=== PATIENT | male | born 1980 | race Caucasian/White ===

== ENCOUNTER 2021-07-12 17:31 | Emergency (ER) | payer OTHER ==
[~2021-07-12] VITALS: Ht 190 cm; Wt 158.7 kg
[2021-07-12 17:49] VITALS: BP 158/106
--- NOTE | 2021-07-12 18:13 | ED Lower Extremity ---
General Chief Complaint: Lower Extremity Stated Complaint: SORE ON FOOT R Nursing Triage Note: PT PRESENTS TO ED VIA POV FROM HOME WITH COMPLAINTS OF HARD AREA ON BOTTOM OF R FOOT THAT OPENED UP AND STARTED DRAINING X 1 WEEK. Source: patient Exam Limitations: no limitations History of Present Illness Date Seen by Provider: Jul 12, 2021 Time Seen by Provider: 17:57 Initial Comments 41-year-old male with past medical history of diabetes and hypertension coming in due to a wound on his right foot. He noticed the wound several weeks ago as a hard callus on the plantar surface of his right foot. Had some pain with walking that was minimal, throbbing, better with rest. It opened up about a week ago, and yesterday he noticed some clear drainage and redness with swelling around the wound. He said about a year ago this time he had the right second toe removed due to a bone infection. [place] is from [place], [place], and just moved here roughly 4 months ago so does not have a primary care doctor as of yet. He only takes Metformin and lisinopril daily, which he still has a supply of for now. He says he is unsure what his blood sugar is normally as he has not taken it in months. Denies any fever, chest pain, shortness of breath, abdominal pain, nausea, vomiting, diarrhea, weakness, numbness, or any other concerns. Allergies and Home Medications Allergies Coded Allergies: amoxicillin (Verified Allergy, Unknown, 07/12/21) Patient Home Medication List Home Medication List Reviewed: Yes Review of Systems Constitutional: No chills, No fever EENTM: No blurred vision Respiratory: No cough Cardiovascular: No chest pain Gastrointestinal: No abdominal pain Genitourinary: no symptoms reported Musculoskeletal: other (Pain in the plantar aspect of his right foot with walking) Skin: other (Wound to the plantar aspect of his right foot is a blister) Psychiatric/Neurological: No Symptoms Reported All Other Systems Reviewed Negative Unless Noted: Yes Past Wrslpfm-Bjcnav-Dxslht Hx Patient Social History Tobacco Use?: No Substance use?: No Alcohol Use?: Yes Alcohol Frequency: Rarely Pt feels they are or have been: No Past Medical History Surgery/Hospitalization HX: pmh: dm2, htn Surgeries: Yes (Right second toe removal from osteomyelitis) Physical Exam Vital Signs Vital Signs - First Documented 07/12/21 17:49 Temp 36.1 Pulse 131 Resp 18 B/P (MAP) 158/106 (123) Pulse Ox 96 Capillary Refill : Less Than 3 Seconds Height, Weight, BMI Height: '" Weight: lbs. oz. kg; 43.00 BMI Method: General Appearance: WD/WN, no apparent distress HEENT: PERRL/EOMI, normal ENT inspection, pharynx normal Neck: non-tender, full range of motion, supple, normal inspection Cardiovascular: no edema, no murmur, tachycardia Respiratory: chest non-tender, lungs clear, normal breath sounds, no respiratory distress, no accessory muscle use Gastrointestinal: normal bowel sounds, non tender; No distended, No guarding, No rebound Back: normal inspection Hips: bilateral hip non-tender, bilateral hip normal inspection, bilateral hip normal range of motion, bilateral hip no evidence of injury Legs: bilateral leg non-tender, bilateral leg normal inspection, bilateral leg normal range of motion, bilateral leg no evidence of injury Knees: bilateral knee non-tender, bilateral knee normal inspection, bilateral knee normal range of motion, bilateral knee no evidence of injury Ankles: bilateral ankle non-tender, bilateral ankle normal inspection, bilateral ankle normal range of motion, bilateral ankle no evidence of injury Feet: left foot non-tender, left foot normal inspection; bilateral foot normal range of motion; left foot no evidence of injury; right foot other (Blister that is open to the right plantar aspect of his foot with an unstageable ulcer, some redness and swelling surrounding it, second digit on the right surgically removed) Neurologic/Tendon: normal sensation, normal motor functions Neurologic/Psychiatric: no motor/sensory deficits, alert, normal mood/affect Skin: normal color, warm/dry Lymphatic: no adenopathy Progress/Results/Core Measures Results/Orders Lab Results Laboratory Tests Test 07/12/21 18:30 Range/Units White Blood Count 22.0 H 4.3-11.0 10^3/uL Red Blood Count 5.08 4.30-5.52 10^6/uL Hemoglobin 15.3 13.3-17.7 g/dL Hematocrit 45 40-54 % Mean Corpuscular Volume 88 80-99 fL Mean Corpuscular Hemoglobin 30 25-34 pg Mean Corpuscular Hemoglobin Concent 34 32-36 g/dL Red Cell Distribution Width 13.5 10.0-14.5 % Platelet Count 215 130-400 10^3/uL Mean Platelet Volume 10.4 9.0-12.2 fL Immature Granulocyte % (Auto) 1 % Neutrophils (%) (Auto) 80 H 42-75 % Lymphocytes (%) (Auto) 13 12-44 % Monocytes (%) (Auto) 7 0-12 % Eosinophils (%) (Auto) 0 0-10 % Basophils (%) (Auto) 0 0-10 % Neutrophils # (Auto) 17.5 H 1.8-7.8 10^3/uL Lymphocytes # (Auto) 2.9 1.0-4.0 10^3/uL Monocytes # (Auto) 1.5 H 0.0-1.0 10^3/uL Eosinophils # (Auto) 0.0 0.0-0.3 10^3/uL Basophils # (Auto) 0.1 0.0-0.1 10^3/uL Immature Granulocyte # (Auto) 0.1 0.0-0.1 10^3/uL Neutrophils % (Manual) 79 % Lymphocytes % (Manual) 7 % Monocytes % (Manual) 8 % Reactive Lymphocytes 6 % Blood Morphology Comment NORMAL Erythrocyte Sedimentation Rate 22 H 0-15 MM/HR Prothrombin Time 13.7 12.2-14.7 SEC INR Comment 1.0 0.8-1.4 Activated Partial Thromboplast Time 31 24-35 SEC Sodium Level 132 L 135-145 MMOL/L Potassium Level 4.2 3.6-5.0 MMOL/L Chloride Level 98 98-107 MMOL/L Carbon Dioxide Level 21 21-32 MMOL/L Anion Gap 13 5-14 MMOL/L Blood Urea Nitrogen 17 7-18 MG/DL Creatinine 0.94 0.60-1.30 MG/DL Estimat Glomerular Filtration Rate 105 BUN/Creatinine Ratio 18 Glucose Level 320 H 70-105 MG/DL Lactic Acid Level 1.82 0.50-2.00 MMOL/L Calcium Level 10.2 H 8.5-10.1 MG/DL Corrected Calcium 10.0 8.5-10.1 MG/DL Total Bilirubin 1.8 H 0.1-1.0 MG/DL Aspartate Amino Transf (AST/SGOT) 14 5-34 U/L Alanine Aminotransferase (ALT/SGPT) 20 0-55 U/L Alkaline Phosphatase 73 40-136 U/L C-Reactive Protein High Sensitivity 7.19 H 0.00-0.50 MG/DL Total Protein 7.8 6.4-8.2 GM/DL Albumin 4.2 3.2-4.5 GM/DL My Orders Orders - ANMOL MORGAN MD Cbc With Automated Diff (07/12/21 18:05) Comprehensive Metabolic Panel (07/12/21 18:05) Blood Culture (07/12/21 18:05) Protime With Inr (07/12/21 18:05) Partial Thromboplastin Time (07/12/21 18:05) Ed Iv/Invasive Line Start (07/12/21 18:05) Vital Signs Adult Sepsis Patie Q15M (07/12/21 18:05) O2 (07/12/21 18:05) Remove Rings In Anticipation O (07/12/21 18:05) Lactic Acid Analyzer (07/12/21 18:05) Ns Iv 1000 Ml (Sodium Chloride 0.9%) (07/12/21 18:15) Hs C Reactive Protein (07/12/21 18:05) Erythrocyte Sedimentation Rate (07/12/21 18:05) Acetaminophen Tablet (Tylenol Tablet) (07/12/21 18:15) Foot, Right, 3 View (07/12/21 18:05) Cefepime Injection (Maxipime Injection) (07/12/21 18:15) Metronidazole 500mg/100ml Ivpb (Flagyl 5 (07/12/21 18:15) Vancomycin Injection (Vancomycin Injecti (07/12/21 18:15) Manual Differential (07/12/21 18:30) Medications Given in ED Current Medications Medications Dose Ordered Sig/Anna Route Start Time Stop Time Status Last Admin Dose Admin Acetaminophen 1,000 mg ONCE ONCE PO 07/12/21 18:15 07/12/21 18:16 DC 07/12/21 18:24 1,000 MG Cefepime HCl 2000 mg/Sodium Chloride 50 ml @ 100 mls/hr ONCE ONCE IV 07/12/21 18:15 07/12/21 18:44 DC 07/12/21 18:57 100 MLS/HR Metronidazole 100 ml @ 100 mls/hr ONCE ONCE IV 07/12/21 18:15 07/12/21 19:14 DC 07/12/21 19:10 100 MLS/HR Vital Signs/I&O 3/21/22 17:49 Temp 36.1 Pulse 131 Resp 18 B/P (MAP) 158/106 (123) Pulse Ox 96 Blood Pressure Mean: 123 Progress Progress Note : Progress Note 41-year-old male with above history coming in due to a wound on his right foot that he is concerned is infected. ABCs were intact and vitals were stable on presentation. Physical exam with an unstageable blister to his right plantar aspect of his foot. His heart rate was elevated around 120 on presentation. He says this is not uncommon for him. Due to this however, an IV was placed and he was given a bolus of IV fluids. Basic labs including inflammatory markers ordered. X-ray of the foot also ordered to assess for signs of osteomyelitis. X-ray with no obvious bone infection. White blood cell count elevated, ESR just slightly elevated, CRP just slightly elevated. His heart rate has come down with fluids, he is afebrile, and actually hypertensive so not obviously septic. Is well-appearing and able to tolerate p.o. so we will send him with p.o. antibiotics and have him follow-up with the wound clinic this week. I believe he is stable for discharge with outpatient follow-up. He was sent home with strict return precautions Diagnostic Imaging Diagonstic Imaging: Xray (foot) Comments NAME: [facility] REC#: [id number] PT STATUS: REG ER : 1980 PHYSICIAN: ANMOL MORGAN MD ADMIT DATE: 07/12/21/ER Signed Date of Exam:07/12/21 FOOT, RIGHT, 3 VIEW EXAMINATION: Right foot 3 views HISTORY: Foot wound COMPARISON: None available. FINDINGS: There has been transmetatarsal phalangeal amputation of the 2nd toe. No acute fracture is seen. There is a heel spur. Soft tissue irregularity is seen on the plantar surface of the foot. No osseous erosions are seen. IMPRESSION: 1. No osseous erosions are seen to indicate osteomyelitis. Dictated by: Dictated on workstation # [id number] Dict: 07/12/21 1856 Trans: 07/12/21 1921 [id number] Interpreted by: MOI MONTERO MD Electronically signed by: MOI MONTERO MD 07/12/211920 Departure Impression Primary Impression: Cellulitis Qualified Codes: L03.115 - Cellulitis of right lower limb Additional Impressions: Wound of foot Diabetes Qualified Codes: E11.69 - Type 2 diabetes mellitus with other specified complication Disposition: HOME, SELF-CARE Condition: Stable Departure-Patient Inst. Decision time for Depature: 19:43 Referrals: VILMA DUMONT MD Patient Instructions: Wound Infection Add. Discharge Instructions: Your wound does look infected, but has not obviously in the bone. He will take 2 different antibiotics for the next 10 days. We will have he follow-up with our wound clinic here in the next week. If you develop fever, redness start spreading up your leg, or have any other concerns then please come back to the ER I want you to call the wound clinic at the number above. Dr. Vilma Dumont is the doctor you will need to see. Scripts Doxycycline Hyclate (Doxycycline Hyclate) 100 Mg Tablet 100 MG PO BID for 10 Days, #20 TAB 0 Refills Prov: ANMOL MORGAN MD 07/12/21 Cephalexin (Cephalexin) 500 Mg Tablet 500 MG PO QID for 10 Days, #40 TAB Prov: ANMOL MORGAN MD 07/12/21 ANMOL MORGAN MD Jul 12, 2021 18:13
[2021-07-12] MEDS ORDERED: CEFEPIME INJECTION 2,000 MG in NS (IVPB) 50 ML IV ONE (18:15)
[2021-07-12] MEDS ORDERED: ACETAMINOPHEN 500 MG TAB (TYLENOL) PO ONE (18:15)
[2021-07-12] MEDS ORDERED: VANCOMYCIN INJECTION 2,000 MG in NS (IVPB) 250 ML IV ONE (18:15)
[2021-07-12] MEDS ORDERED: metroNIDAZOLE 500MG/100ML IVPB 100 ML IV ONE (18:15)
[2021-07-12] MEDS: NS IV 1000 ML 1,000 ML IV SCH ×2 (18:24→19:51)
[2021-07-12 18:41] LABS: BASOPHILS # (AUTO) 0.1 10^3/uL (0.0-0.1); BASOPHILS % (AUTO) 0 % (0-10); EOSINOPHILS % (AUTO) 0 % (0-10); HEMATOCRIT 45 % (40-54); HEMOGLOBIN 15.3 g/dL (13.3-17.7); LYMPHOCYTES # (AUTO) 2.9 10^3/uL (1.0-4.0); LYMPHOCYTES % (AUTO) 13 % (12-44); MEAN CORPUSCULAR HEMOGLOBIN 30 pg (25-34); MEAN CORPUSCULAR HGB CONC 34 g/dL (32-36); MEAN CORPUSCULAR VOLUME 88 fL (80-99); MEAN PLATELET VOLUME 10.4 fL (9.0-12.2); MONOCYTES # (AUTO) 1.5 10^3/uL (0.0-1.0); MONOCYTES % (AUTO) 7 % (0-12); NEUTROPHILS # (AUTO) 17.5 10^3/uL (1.8-7.8); NEUTROPHILS % (AUTO) 80 % (42-75); PLATELET COUNT 215 10^3/uL (130-400)
[2021-07-12 18:59] LABS: ALBUMIN 4.2 GM/DL (3.2-4.5); PROTHROMBIN TIME PATIENT 13.7 SEC (12.2-14.7)
[2021-07-12 19:00] LABS: POTASSIUM 4.2 MMOL/L (3.6-5.0)
[2021-07-12 19:01] LABS: CALCIUM 10.2 MG/DL (8.5-10.1)
--- NOTE | 2021-07-12 19:01 | Diagnostic Imaging Report ---
EXAMINATION: Right foot 3 views HISTORY: Foot wound COMPARISON: None available. FINDINGS: There has been transmetatarsal phalangeal amputation of the 2nd toe. No acute fracture is seen. There is a heel spur. Soft tissue irregularity is seen on the plantar surface of the foot. No osseous erosions are seen. IMPRESSION: 1. No osseous erosions are seen to indicate osteomyelitis. Dictated by: Dictated on workstation # [id number]
[2021-07-12 19:02] LABS: TOTAL PROTEIN 7.8 GM/DL (6.4-8.2)
[2021-07-12 19:04] LABS: BILIRUBIN,TOTAL 1.8 MG/DL (0.1-1.0)
[2021-07-12 19:06] LABS: CREATININE SERUM 0.94 MG/DL (0.60-1.30)
[2021-07-12 19:09] LABS: ERYTHROCYTE SEDIMENTATION RATE 22 MM/HR (0-15); LYMPHOCYTES % (MANUAL) 7 %; MONOCYTES % (MANUAL) 8 %; NEUTROPHILS % (MANUAL) 79 %; RBC MORPH NORMAL; REACTIVE LYMPHOCYTES 6 %
[2021-07-12] MEDS ORDERED: DOXY100T2 PO (19:46)
[2021-07-12] MEDS ORDERED: CEPH500T PO (19:46)
== END 2021-07-12 20:53 | disposition home or self-care (01) ==
LOC: EDUNIT# 17:31 → ER 17:35
DX: S91.301A Unspecified open wound, right foot, initial encounter (principal); L03.115 Cellulitis of right lower limb; E11.69 Type 2 diabetes mellitus with other specified complication; I10 Essential (primary) hypertension; Z79.84 Long term (current) use of oral hypoglycemic drugs; X58.XXXA Exposure to other specified factors, initial encounter
CPT/HCPCS: 36415; 73630; 80053; 83036; 83605; 85007; 85027; 85610; 85652; 85730; 86141; 87040; 96374; 96375

== ENCOUNTER → 2021-07-14 | Outpatient (CLI) | payer OTHER ==
[~2021-07-14] MED LIST: CEPH500T PO; DOXY100T2 PO
== END ==
LOC: WOUNDCARE 12:00
PROVIDERS: ATTEND Family Medicine
DX: E11.621 Type 2 diabetes mellitus with foot ulcer (principal); L97.512 Non-pressure chronic ulcer of other part of right foot with fat layer exposed; E11.43 Type 2 diabetes mellitus with diabetic autonomic (poly)neuropathy; E11.65 Type 2 diabetes mellitus with hyperglycemia; L03.115 Cellulitis of right lower limb
CPT/HCPCS: 11042; 87070; 87205; A6197; G0463; L4386; 87077

== ENCOUNTER → 2021-07-21 | Outpatient (CLI) | payer OTHER ==
[~2021-07-21] MED LIST changes: +HOLD METFORMIN - RECEIVED CONTRAST 20 ML VIAL IV SCH; +IOHEXOL 350 MG/ML 100 ML (OMNIPAQUE 350) VIAL IV ONE; +NS 100 ML (IVPB) BAG IV ONE
--- NOTE | 2021-07-21 17:51 | Diagnostic Imaging Report ---
PROCEDURE: CT right lower extremity with contrast. TECHNIQUE: Multiple contiguous axial CT images of the right extremity were obtained after intravenous administration of iodinated contrast. Auto Exposure Controls were utilized during the CT exam to meet ALARA standards for radiation dose reduction. 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 COMPARISON: Radiographs from 07/12/2021. FINDINGS: There is prior amputation of the second toe at the metatarsal head. No acute fracture is seen in the right foot. Alignment is normal. No cortical erosion or periosteal reaction is seen to indicate osteomyelitis by CT. There is a small plantar calcaneal enthesophyte. There is lateral angulation of the third and fourth toes with hyperextension at the MTP joints. There is a soft tissue ulceration plantar to the third metatarsal head with skin thickening. No rim-enhancing fluid collection is appreciated. No soft tissue gas is seen. No muscular atrophy is seen. IMPRESSION: 1. Soft tissue ulceration plantar to the third metatarsal head. No rim-enhancing soft tissue fluid collection or CT findings of osteomyelitis are seen. Dictated by: Dictated on workstation # [id number]
== END ==
LOC: RAD 07-20 13:15
PROVIDERS: ATTEND Family Medicine
DX: E11.621 Type 2 diabetes mellitus with foot ulcer (principal); L97.512 Non-pressure chronic ulcer of other part of right foot with fat layer exposed; E11.43 Type 2 diabetes mellitus with diabetic autonomic (poly)neuropathy; E11.65 Type 2 diabetes mellitus with hyperglycemia; L03.115 Cellulitis of right lower limb
CPT/HCPCS: 73701

== ENCOUNTER → 2021-07-22 | Outpatient (CLI) | payer OTHER ==
[~2021-07-22] MED LIST changes: -HOLD METFORMIN - RECEIVED CONTRAST 20 ML VIAL IV SCH; -IOHEXOL 350 MG/ML 100 ML (OMNIPAQUE 350) VIAL IV ONE; -NS 100 ML (IVPB) BAG IV ONE
== END ==
LOC: WOUNDCARE 09:30
PROVIDERS: ATTEND Family Medicine
DX: L97.512 Non-pressure chronic ulcer of other part of right foot with fat layer exposed (principal); E11.621 Type 2 diabetes mellitus with foot ulcer; E11.43 Type 2 diabetes mellitus with diabetic autonomic (poly)neuropathy; E11.65 Type 2 diabetes mellitus with hyperglycemia; L03.115 Cellulitis of right lower limb; E11.52 Type 2 diabetes mellitus with diabetic peripheral angiopathy with gangrene
CPT/HCPCS: 11042; G0463

== ENCOUNTER → 2021-07-27 | Outpatient (CLI) | payer OTHER | LOC: WOUNDCARE 14:10 | PROVIDERS: ATTEND Family Medicine | DX: L97.512 Non-pressure chronic ulcer of other part of right foot with fat layer exposed (principal); E11.621 Type 2 diabetes mellitus with foot ulcer; E11.43 Type 2 diabetes mellitus with diabetic autonomic (poly)neuropathy; E11.65 Type 2 diabetes mellitus with hyperglycemia; E11.52 Type 2 diabetes mellitus with diabetic peripheral angiopathy with gangrene | CPT/HCPCS: 11042; G0463 ==

== ENCOUNTER → 2021-08-03 | Outpatient (CLI) | payer OTHER | LOC: WOUNDCARE 14:21 | PROVIDERS: ATTEND Family Medicine | DX: L97.512 Non-pressure chronic ulcer of other part of right foot with fat layer exposed (principal); E11.621 Type 2 diabetes mellitus with foot ulcer; E11.43 Type 2 diabetes mellitus with diabetic autonomic (poly)neuropathy; E11.65 Type 2 diabetes mellitus with hyperglycemia; E11.52 Type 2 diabetes mellitus with diabetic peripheral angiopathy with gangrene | CPT/HCPCS: 11042; G0463 ==

== ENCOUNTER → 2021-08-10 | Outpatient (CLI) | payer OTHER | LOC: WOUNDCARE 13:48 | PROVIDERS: ATTEND Family Medicine | DX: E11.621 Type 2 diabetes mellitus with foot ulcer (principal); L97.512 Non-pressure chronic ulcer of other part of right foot with fat layer exposed; E11.43 Type 2 diabetes mellitus with diabetic autonomic (poly)neuropathy; E11.65 Type 2 diabetes mellitus with hyperglycemia; E11.52 Type 2 diabetes mellitus with diabetic peripheral angiopathy with gangrene | CPT/HCPCS: 11042; G0463 ==

== ENCOUNTER → 2021-08-17 | Outpatient (CLI) | payer OTHER | LOC: WOUNDCARE 14:08 | PROVIDERS: ATTEND Family Medicine | DX: E11.621 Type 2 diabetes mellitus with foot ulcer (principal); L97.512 Non-pressure chronic ulcer of other part of right foot with fat layer exposed; E11.65 Type 2 diabetes mellitus with hyperglycemia; E11.43 Type 2 diabetes mellitus with diabetic autonomic (poly)neuropathy | CPT/HCPCS: 11042; G0463 ==

== ENCOUNTER → 2021-08-24 | Outpatient (CLI) | payer OTHER | LOC: WOUNDCARE 14:28 | PROVIDERS: ATTEND Family Medicine | DX: E11.621 Type 2 diabetes mellitus with foot ulcer (principal); L97.512 Non-pressure chronic ulcer of other part of right foot with fat layer exposed; E11.43 Type 2 diabetes mellitus with diabetic autonomic (poly)neuropathy; E11.52 Type 2 diabetes mellitus with diabetic peripheral angiopathy with gangrene; E11.65 Type 2 diabetes mellitus with hyperglycemia; E66.01 Morbid (severe) obesity due to excess calories; Z68.41 Body mass index [BMI] 40.0-44.9, adult | CPT/HCPCS: 11042; G0463 ==

== ENCOUNTER → 2021-08-31 | Outpatient (CLI) | payer OTHER | LOC: WOUNDCARE 14:05 | PROVIDERS: ATTEND Family Medicine | DX: E11.621 Type 2 diabetes mellitus with foot ulcer (principal); L97.512 Non-pressure chronic ulcer of other part of right foot with fat layer exposed; E11.65 Type 2 diabetes mellitus with hyperglycemia; E66.01 Morbid (severe) obesity due to excess calories; I95.9 Hypotension, unspecified; E11.43 Type 2 diabetes mellitus with diabetic autonomic (poly)neuropathy; E11.52 Type 2 diabetes mellitus with diabetic peripheral angiopathy with gangrene; I96 Gangrene, not elsewhere classified | CPT/HCPCS: 11042; A6207; G0463 ==

== ENCOUNTER → 2021-09-07 | Outpatient (CLI) | payer OTHER | LOC: WOUNDCARE 14:01 | PROVIDERS: ATTEND Family Medicine | DX: E11.621 Type 2 diabetes mellitus with foot ulcer (principal); L97.512 Non-pressure chronic ulcer of other part of right foot with fat layer exposed; E11.65 Type 2 diabetes mellitus with hyperglycemia; E66.01 Morbid (severe) obesity due to excess calories; I95.9 Hypotension, unspecified; E11.43 Type 2 diabetes mellitus with diabetic autonomic (poly)neuropathy; E11.52 Type 2 diabetes mellitus with diabetic peripheral angiopathy with gangrene; I96 Gangrene, not elsewhere classified | CPT/HCPCS: 11042; G0463 ==

== ENCOUNTER → 2021-09-14 | Outpatient (CLI) | payer OTHER | LOC: WOUNDCARE 08:28 | PROVIDERS: ATTEND Family Medicine | DX: E11.621 Type 2 diabetes mellitus with foot ulcer (principal); L97.512 Non-pressure chronic ulcer of other part of right foot with fat layer exposed; E11.43 Type 2 diabetes mellitus with diabetic autonomic (poly)neuropathy; E11.65 Type 2 diabetes mellitus with hyperglycemia; E66.01 Morbid (severe) obesity due to excess calories; M20.41 Other hammer toe(s) (acquired), right foot | CPT/HCPCS: 11042; G0463 ==

== ENCOUNTER → 2021-09-21 | Outpatient (CLI) | payer OTHER | LOC: WOUNDCARE 08:13 | PROVIDERS: ATTEND Family Medicine | DX: E11.621 Type 2 diabetes mellitus with foot ulcer (principal); E11.43 Type 2 diabetes mellitus with diabetic autonomic (poly)neuropathy; E11.65 Type 2 diabetes mellitus with hyperglycemia; L97.512 Non-pressure chronic ulcer of other part of right foot with fat layer exposed; E66.01 Morbid (severe) obesity due to excess calories; M20.41 Other hammer toe(s) (acquired), right foot; Z68.41 Body mass index [BMI] 40.0-44.9, adult | CPT/HCPCS: 11042; G0463 ==

== ENCOUNTER → 2021-09-28 | Outpatient (CLI) | payer OTHER | LOC: WOUNDCARE 08:21 | PROVIDERS: ATTEND Family Medicine | DX: L97.512 Non-pressure chronic ulcer of other part of right foot with fat layer exposed (principal); E11.621 Type 2 diabetes mellitus with foot ulcer; E11.43 Type 2 diabetes mellitus with diabetic autonomic (poly)neuropathy; E11.65 Type 2 diabetes mellitus with hyperglycemia; M20.41 Other hammer toe(s) (acquired), right foot; E11.52 Type 2 diabetes mellitus with diabetic peripheral angiopathy with gangrene; E66.01 Morbid (severe) obesity due to excess calories; I96 Gangrene, not elsewhere classified; Z68.41 Body mass index [BMI] 40.0-44.9, adult | CPT/HCPCS: 11042; G0463 ==

== ENCOUNTER → 2021-10-05 | Outpatient (CLI) | payer OTHER | LOC: WOUNDCARE 09:04 | PROVIDERS: ATTEND Family Medicine | DX: L97.512 Non-pressure chronic ulcer of other part of right foot with fat layer exposed (principal); E11.621 Type 2 diabetes mellitus with foot ulcer; E11.43 Type 2 diabetes mellitus with diabetic autonomic (poly)neuropathy; E11.65 Type 2 diabetes mellitus with hyperglycemia; E66.01 Morbid (severe) obesity due to excess calories; M20.41 Other hammer toe(s) (acquired), right foot | CPT/HCPCS: 11042; G0463 ==

== ENCOUNTER → 2021-10-12 | Outpatient (CLI) | payer OTHER | LOC: WOUNDCARE 08:17 | PROVIDERS: ATTEND Family Medicine | DX: L97.512 Non-pressure chronic ulcer of other part of right foot with fat layer exposed (principal); E11.621 Type 2 diabetes mellitus with foot ulcer; E11.43 Type 2 diabetes mellitus with diabetic autonomic (poly)neuropathy; E11.65 Type 2 diabetes mellitus with hyperglycemia; E66.01 Morbid (severe) obesity due to excess calories; M20.41 Other hammer toe(s) (acquired), right foot | CPT/HCPCS: 11042; G0463 ==

== ENCOUNTER → 2021-10-19 | Outpatient (CLI) | payer OTHER | LOC: WOUNDCARE 08:14 | PROVIDERS: ATTEND Family Medicine | DX: L97.512 Non-pressure chronic ulcer of other part of right foot with fat layer exposed (principal); E11.621 Type 2 diabetes mellitus with foot ulcer; E11.43 Type 2 diabetes mellitus with diabetic autonomic (poly)neuropathy; E11.65 Type 2 diabetes mellitus with hyperglycemia; E66.01 Morbid (severe) obesity due to excess calories; M20.41 Other hammer toe(s) (acquired), right foot | CPT/HCPCS: 11042; G0463 ==

== ENCOUNTER → 2021-10-26 | Outpatient (CLI) | payer OTHER | LOC: WOUNDCARE 09:56 | PROVIDERS: ATTEND Family Medicine | DX: E11.621 Type 2 diabetes mellitus with foot ulcer (principal); L97.512 Non-pressure chronic ulcer of other part of right foot with fat layer exposed; E11.43 Type 2 diabetes mellitus with diabetic autonomic (poly)neuropathy; E11.65 Type 2 diabetes mellitus with hyperglycemia; M20.41 Other hammer toe(s) (acquired), right foot; E66.01 Morbid (severe) obesity due to excess calories; Z68.42 Body mass index [BMI] 45.0-49.9, adult | CPT/HCPCS: 17250; G0463 ==

== ENCOUNTER → 2021-11-09 | Outpatient (CLI) | payer OTHER | LOC: WOUNDCARE 08:10 | PROVIDERS: ATTEND Family Medicine | DX: E11.621 Type 2 diabetes mellitus with foot ulcer (principal); L97.512 Non-pressure chronic ulcer of other part of right foot with fat layer exposed; E11.43 Type 2 diabetes mellitus with diabetic autonomic (poly)neuropathy; E11.65 Type 2 diabetes mellitus with hyperglycemia; E66.01 Morbid (severe) obesity due to excess calories; M20.41 Other hammer toe(s) (acquired), right foot; E11.52 Type 2 diabetes mellitus with diabetic peripheral angiopathy with gangrene; I96 Gangrene, not elsewhere classified; Z68.42 Body mass index [BMI] 45.0-49.9, adult | CPT/HCPCS: 11042; G0463 ==

== ENCOUNTER → 2021-11-09 | Outpatient (CLI) | payer OTHER ==
[2021-11-09 09:44] LABS: BASOPHILS # (AUTO) 0.1 10^3/uL (0.0-0.1); BASOPHILS % (AUTO) 1 % (0-10); EOSINOPHILS # (AUTO) 0.1 10^3/uL (0.0-0.3); EOSINOPHILS % (AUTO) 2 % (0-10); HEMATOCRIT 46 % (40-54); HEMOGLOBIN 15.5 g/dL (13.3-17.7); LYMPHOCYTES # (AUTO) 2.8 10^3/uL (1.0-4.0); LYMPHOCYTES % (AUTO) 32 % (12-44); MEAN CORPUSCULAR HEMOGLOBIN 30 pg (25-34); MEAN CORPUSCULAR HGB CONC 34 g/dL (32-36); MEAN CORPUSCULAR VOLUME 88 fL (80-99); MEAN PLATELET VOLUME 10.2 fL (9.0-12.2); MONOCYTES # (AUTO) 0.7 10^3/uL (0.0-1.0); MONOCYTES % (AUTO) 8 % (0-12); NEUTROPHILS # (AUTO) 5.1 10^3/uL (1.8-7.8); NEUTROPHILS % (AUTO) 58 % (42-75); PLATELET COUNT 207 10^3/uL (130-400); WHITE BLOOD COUNT 8.7 10^3/uL (4.3-11.0)
[2021-11-09 10:05] LABS: ALBUMIN 4.1 GM/DL (3.2-4.5); CALCIUM 9.8 MG/DL (8.5-10.1); CREATININE SERUM 0.78 MG/DL (0.60-1.30); POTASSIUM 4.3 MMOL/L (3.6-5.0)
[2021-11-09 10:51] LABS: ERYTHROCYTE SEDIMENTATION RATE 20 MM/HR (0-15)
== END ==
LOC: LAB 09:15
PROVIDERS: ATTEND Family Medicine
DX: L97.512 Non-pressure chronic ulcer of other part of right foot with fat layer exposed (principal)
CPT/HCPCS: 36415; 80053; 82306; 82607; 85025; 85652; 86141

== ENCOUNTER → 2021-11-16 | Outpatient (CLI) | payer OTHER | LOC: WOUNDCARE 08:40 | PROVIDERS: ATTEND Family Medicine | DX: E11.621 Type 2 diabetes mellitus with foot ulcer (principal); L97.521 Non-pressure chronic ulcer of other part of left foot limited to breakdown of skin; E11.42 Type 2 diabetes mellitus with diabetic polyneuropathy; E11.65 Type 2 diabetes mellitus with hyperglycemia; E66.01 Morbid (severe) obesity due to excess calories; I10 Essential (primary) hypertension; E55.9 Vitamin D deficiency, unspecified; M20.41 Other hammer toe(s) (acquired), right foot | CPT/HCPCS: 11042; G0463 ==

== ENCOUNTER → 2021-11-24 | Outpatient (CLI) | payer OTHER | LOC: WOUNDCARE 10:21 | PROVIDERS: ATTEND Family Medicine | DX: E11.621 Type 2 diabetes mellitus with foot ulcer (principal); E11.52 Type 2 diabetes mellitus with diabetic peripheral angiopathy with gangrene; I96 Gangrene, not elsewhere classified; E11.40 Type 2 diabetes mellitus with diabetic neuropathy, unspecified; E11.65 Type 2 diabetes mellitus with hyperglycemia; L97.512 Non-pressure chronic ulcer of other part of right foot with fat layer exposed; E66.01 Morbid (severe) obesity due to excess calories; I10 Essential (primary) hypertension; E55.9 Vitamin D deficiency, unspecified; M20.41 Other hammer toe(s) (acquired), right foot; Z68.42 Body mass index [BMI] 45.0-49.9, adult | CPT/HCPCS: 11042; G0463 ==

== ENCOUNTER → 2021-12-01 | Outpatient (CLI) | payer OTHER | LOC: WOUNDCARE 08:26 | PROVIDERS: ATTEND Family Medicine | DX: L97.512 Non-pressure chronic ulcer of other part of right foot with fat layer exposed (principal); E11.621 Type 2 diabetes mellitus with foot ulcer; E11.43 Type 2 diabetes mellitus with diabetic autonomic (poly)neuropathy; E11.65 Type 2 diabetes mellitus with hyperglycemia; E66.01 Morbid (severe) obesity due to excess calories; M20.41 Other hammer toe(s) (acquired), right foot; E55.9 Vitamin D deficiency, unspecified | CPT/HCPCS: 99213 ==

== ENCOUNTER → 2021-12-08 | Outpatient (CLI) | payer OTHER ==
[2021-12-08 09:17] LABS: BASOPHILS # (AUTO) 0.1 10^3/uL (0.0-0.1); BASOPHILS % (AUTO) 1 % (0-10); EOSINOPHILS # (AUTO) 0.2 10^3/uL (0.0-0.3); EOSINOPHILS % (AUTO) 2 % (0-10); HEMATOCRIT 42 % (40-54); HEMOGLOBIN 14.5 g/dL (13.3-17.7); LYMPHOCYTES # (AUTO) 2.7 10^3/uL (1.0-4.0); LYMPHOCYTES % (AUTO) 33 % (12-44); MEAN CORPUSCULAR HEMOGLOBIN 30 pg (25-34); MEAN CORPUSCULAR HGB CONC 35 g/dL (32-36); MEAN CORPUSCULAR VOLUME 85 fL (80-99); MEAN PLATELET VOLUME 10.3 fL (9.0-12.2); MONOCYTES # (AUTO) 0.6 10^3/uL (0.0-1.0); MONOCYTES % (AUTO) 8 % (0-12); NEUTROPHILS # (AUTO) 4.6 10^3/uL (1.8-7.8); NEUTROPHILS % (AUTO) 56 % (42-75); PLATELET COUNT 186 10^3/uL (130-400); WHITE BLOOD COUNT 8.3 10^3/uL (4.3-11.0)
[2021-12-08 09:28] LABS: ALBUMIN 3.8 GM/DL (3.2-4.5); POTASSIUM 4.1 MMOL/L (3.6-5.0)
[2021-12-08 09:29] LABS: CALCIUM 9.3 MG/DL (8.5-10.1)
[2021-12-08 09:31] LABS: TOTAL PROTEIN 7.9 GM/DL (6.4-8.2)
[2021-12-08 09:32] LABS: BILIRUBIN,TOTAL 1.6 MG/DL (0.1-1.0)
[2021-12-08 09:34] LABS: CREATININE SERUM 0.77 MG/DL (0.60-1.30)
[2021-12-08 09:40] LABS: ERYTHROCYTE SEDIMENTATION RATE 43 MM/HR (0-15)
== END ==
LOC: WOUNDCARE 08:27
PROVIDERS: ATTEND Family Medicine
DX: L97.512 Non-pressure chronic ulcer of other part of right foot with fat layer exposed (principal); E11.621 Type 2 diabetes mellitus with foot ulcer; E11.43 Type 2 diabetes mellitus with diabetic autonomic (poly)neuropathy; E11.65 Type 2 diabetes mellitus with hyperglycemia; E66.01 Morbid (severe) obesity due to excess calories; M20.41 Other hammer toe(s) (acquired), right foot; I10 Essential (primary) hypertension; E55.9 Vitamin D deficiency, unspecified; L03.115 Cellulitis of right lower limb; Z91.11 Patient's noncompliance with dietary regimen; Z91.19 Patient's noncompliance with other medical treatment and regimen
CPT/HCPCS: 11042; 80053; 85025; 85652; 86141; 87070; 87205; G0463; 36415

== ENCOUNTER → 2021-12-15 | Outpatient (CLI) | payer OTHER | LOC: WOUNDCARE 08:25 | PROVIDERS: ATTEND Family Medicine | DX: L97.512 Non-pressure chronic ulcer of other part of right foot with fat layer exposed (principal); E11.621 Type 2 diabetes mellitus with foot ulcer; E11.65 Type 2 diabetes mellitus with hyperglycemia; E66.01 Morbid (severe) obesity due to excess calories; I10 Essential (primary) hypertension; E55.9 Vitamin D deficiency, unspecified; E11.43 Type 2 diabetes mellitus with diabetic autonomic (poly)neuropathy; M20.41 Other hammer toe(s) (acquired), right foot; Z91.11 Patient's noncompliance with dietary regimen; Z91.19 Patient's noncompliance with other medical treatment and regimen | CPT/HCPCS: 99212 ==

== ENCOUNTER → 2022-06-07 | Outpatient (CLI) | payer OTHER ==
[2022-06-07 09:44] LABS: BASOPHILS # (AUTO) 0.1 10^3/uL (0.0-0.1); BASOPHILS % (AUTO) 1 % (0-10); EOSINOPHILS # (AUTO) 0.2 10^3/uL (0.0-0.3); EOSINOPHILS % (AUTO) 2 % (0-10); HEMATOCRIT 44 % (40-54); HEMOGLOBIN 14.8 g/dL (13.3-17.7); LYMPHOCYTES # (AUTO) 2.8 10^3/uL (1.0-4.0); LYMPHOCYTES % (AUTO) 30 % (12-44); MEAN CORPUSCULAR HEMOGLOBIN 30 pg (25-34); MEAN CORPUSCULAR HGB CONC 34 g/dL (32-36); MEAN CORPUSCULAR VOLUME 89 fL (80-99); MEAN PLATELET VOLUME 10.1 fL (9.0-12.2); MONOCYTES # (AUTO) 0.6 10^3/uL (0.0-1.0); MONOCYTES % (AUTO) 6 % (0-12); NEUTROPHILS # (AUTO) 5.7 10^3/uL (1.8-7.8); NEUTROPHILS % (AUTO) 61 % (42-75); PLATELET COUNT 219 10^3/uL (130-400); WHITE BLOOD COUNT 9.3 10^3/uL (4.3-11.0)
[2022-06-07 09:53] LABS: ALBUMIN 4.2 GM/DL (3.2-4.5); POTASSIUM 4.4 MMOL/L (3.6-5.0)
[2022-06-07 09:54] LABS: CALCIUM 9.4 MG/DL (8.5-10.1)
[2022-06-07 09:55] LABS: TOTAL PROTEIN 8.1 GM/DL (6.4-8.2)
[2022-06-07 09:57] LABS: BILIRUBIN,TOTAL 1.2 MG/DL (0.1-1.0)
[2022-06-07 09:59] LABS: CREATININE SERUM 0.82 MG/DL (0.60-1.30)
[2022-06-07 10:16] LABS: ERYTHROCYTE SEDIMENTATION RATE 22 MM/HR (0-15)
== END ==
LOC: WOUNDCARE 08:03
PROVIDERS: ATTEND Family Medicine
DX: L97.512 Non-pressure chronic ulcer of other part of right foot with fat layer exposed (principal); E11.621 Type 2 diabetes mellitus with foot ulcer; E11.65 Type 2 diabetes mellitus with hyperglycemia; E11.40 Type 2 diabetes mellitus with diabetic neuropathy, unspecified; M14.671 Charcot's joint, right ankle and foot; M20.41 Other hammer toe(s) (acquired), right foot; Z68.41 Body mass index [BMI] 40.0-44.9, adult; E66.01 Morbid (severe) obesity due to excess calories; A49.9 Bacterial infection, unspecified
CPT/HCPCS: 11042; 80053; 85025; 85652; 86141; 87070; 87077; 87205; A6197; G0463; 36415

== ENCOUNTER → 2022-06-09 | Outpatient (CLI) | payer OTHER ==
--- NOTE | 2022-06-09 12:48 | Diagnostic Imaging Report ---
Indication: Claudication. COMPARISON: None FINDINGS: Ankle brachial indices were obtained bilaterally. GERALDO on the right measures 1.27. GERALDO on the left measures 1.22. IMPRESSION: 1. Normal ankle-brachial indices. Dictated by: Dictated on workstation # [id number]
== END ==
LOC: RAD 09:02
PROVIDERS: ATTEND Family Medicine
DX: L97.512 Non-pressure chronic ulcer of other part of right foot with fat layer exposed (principal); E11.621 Type 2 diabetes mellitus with foot ulcer; E11.65 Type 2 diabetes mellitus with hyperglycemia; E11.40 Type 2 diabetes mellitus with diabetic neuropathy, unspecified; M14.671 Charcot's joint, right ankle and foot; M20.41 Other hammer toe(s) (acquired), right foot; E66.01 Morbid (severe) obesity due to excess calories; A49.9 Bacterial infection, unspecified; I73.9 Peripheral vascular disease, unspecified; Z68.41 Body mass index [BMI] 40.0-44.9, adult
CPT/HCPCS: 93923

== ENCOUNTER → 2022-06-13 | Outpatient (CLI) | payer OTHER ==
--- NOTE | 2022-06-13 14:17 | Diagnostic Imaging Report ---
INDICATION: Osteomyelitis, ulcer. COMPARISON: 07/12/2021. TECHNIQUE: Three radiographs of the right foot dated 06/13/2022. FINDINGS: Amputation of the second toe is again noted at the level of the distal second metatarsal. No acute fracture or dislocation. No destructive osseous process. Small plantar and tiny posterior calcaneal enthesophytes. The Lisfranc joint is well aligned. Minimal scattered degenerative changes. No suspicious radiopaque foreign body. IMPRESSION: Stable examination demonstrating amputation of the second digit at the level of the distal second metatarsal without evidence of osseous destruction or acute osseous abnormality. Should there remains high clinical concern for underlying osteomyelitis, then follow-up radiographs in 10-14 days would be recommended. Dictated by: Dictated on workstation # [id number]
== END ==
LOC: WOUNDCARE 08:13
PROVIDERS: ATTEND Family Medicine
DX: E11.621 Type 2 diabetes mellitus with foot ulcer (principal); L97.512 Non-pressure chronic ulcer of other part of right foot with fat layer exposed; E11.40 Type 2 diabetes mellitus with diabetic neuropathy, unspecified; E11.65 Type 2 diabetes mellitus with hyperglycemia; M14.671 Charcot's joint, right ankle and foot; M20.41 Other hammer toe(s) (acquired), right foot; E66.01 Morbid (severe) obesity due to excess calories; A49.9 Bacterial infection, unspecified
CPT/HCPCS: 11042; 73630; G0463

== ENCOUNTER → 2022-06-20 | Outpatient (CLI) | payer OTHER | LOC: WOUNDCARE 08:16 | PROVIDERS: ATTEND Family Medicine | DX: E11.621 Type 2 diabetes mellitus with foot ulcer (principal); L97.512 Non-pressure chronic ulcer of other part of right foot with fat layer exposed; E11.40 Type 2 diabetes mellitus with diabetic neuropathy, unspecified; E11.65 Type 2 diabetes mellitus with hyperglycemia; M14.671 Charcot's joint, right ankle and foot; M20.41 Other hammer toe(s) (acquired), right foot; Z68.41 Body mass index [BMI] 40.0-44.9, adult; E66.01 Morbid (severe) obesity due to excess calories | CPT/HCPCS: 99213 ==

== ENCOUNTER → 2022-09-05 | Outpatient (CLI) | payer OTHER | LOC: WOUNDCARE 13:31 | PROVIDERS: ATTEND Family Medicine | DX: E11.621 Type 2 diabetes mellitus with foot ulcer (principal); L97.512 Non-pressure chronic ulcer of other part of right foot with fat layer exposed; M20.41 Other hammer toe(s) (acquired), right foot; M14.671 Charcot's joint, right ankle and foot; E11.65 Type 2 diabetes mellitus with hyperglycemia; E11.40 Type 2 diabetes mellitus with diabetic neuropathy, unspecified; E55.9 Vitamin D deficiency, unspecified; Z68.41 Body mass index [BMI] 40.0-44.9, adult; E66.01 Morbid (severe) obesity due to excess calories; E11.52 Type 2 diabetes mellitus with diabetic peripheral angiopathy with gangrene | CPT/HCPCS: 11042; 87070; 87205; A6197; G0463; 87077; 87186 ==

== ENCOUNTER → 2022-09-12 | Outpatient (CLI) | payer OTHER | LOC: WOUNDCARE 14:04 | PROVIDERS: ATTEND Family Medicine | DX: E11.621 Type 2 diabetes mellitus with foot ulcer (principal); L97.512 Non-pressure chronic ulcer of other part of right foot with fat layer exposed; M20.41 Other hammer toe(s) (acquired), right foot; M14.671 Charcot's joint, right ankle and foot; E11.65 Type 2 diabetes mellitus with hyperglycemia; E11.40 Type 2 diabetes mellitus with diabetic neuropathy, unspecified; E66.01 Morbid (severe) obesity due to excess calories; Z68.41 Body mass index [BMI] 40.0-44.9, adult; E55.9 Vitamin D deficiency, unspecified | CPT/HCPCS: 11042; G0463 ==

== ENCOUNTER → 2022-09-21 | Outpatient (CLI) | payer OTHER | LOC: WOUNDCARE 14:25 | PROVIDERS: ATTEND Family Medicine | DX: E11.621 Type 2 diabetes mellitus with foot ulcer (principal); L97.512 Non-pressure chronic ulcer of other part of right foot with fat layer exposed; M20.41 Other hammer toe(s) (acquired), right foot; M14.671 Charcot's joint, right ankle and foot; E11.65 Type 2 diabetes mellitus with hyperglycemia; E11.40 Type 2 diabetes mellitus with diabetic neuropathy, unspecified; E66.01 Morbid (severe) obesity due to excess calories; Z68.41 Body mass index [BMI] 40.0-44.9, adult; E55.9 Vitamin D deficiency, unspecified; E11.52 Type 2 diabetes mellitus with diabetic peripheral angiopathy with gangrene | CPT/HCPCS: 11042; 85652; 86141; G0463; 36415 ==

== ENCOUNTER → 2022-09-28 | Outpatient (CLI) | payer OTHER | LOC: WOUNDCARE 14:00 | PROVIDERS: ATTEND Family Medicine | DX: E11.65 Type 2 diabetes mellitus with hyperglycemia (principal); L97.512 Non-pressure chronic ulcer of other part of right foot with fat layer exposed; M14.671 Charcot's joint, right ankle and foot; M20.41 Other hammer toe(s) (acquired), right foot; E11.40 Type 2 diabetes mellitus with diabetic neuropathy, unspecified; E11.52 Type 2 diabetes mellitus with diabetic peripheral angiopathy with gangrene; E55.9 Vitamin D deficiency, unspecified; Z68.41 Body mass index [BMI] 40.0-44.9, adult; E11.621 Type 2 diabetes mellitus with foot ulcer | CPT/HCPCS: 11042; G0463 ==

== ENCOUNTER → 2022-10-05 | Outpatient (CLI) | payer OTHER | LOC: WOUNDCARE 14:03 | PROVIDERS: ATTEND Family Medicine | DX: E11.621 Type 2 diabetes mellitus with foot ulcer (principal); L97.512 Non-pressure chronic ulcer of other part of right foot with fat layer exposed; M20.41 Other hammer toe(s) (acquired), right foot; M14.671 Charcot's joint, right ankle and foot; E11.65 Type 2 diabetes mellitus with hyperglycemia; E11.40 Type 2 diabetes mellitus with diabetic neuropathy, unspecified; E66.01 Morbid (severe) obesity due to excess calories; Z68.41 Body mass index [BMI] 40.0-44.9, adult; E55.9 Vitamin D deficiency, unspecified | CPT/HCPCS: 11042; G0463 ==

== ENCOUNTER → 2022-10-13 | Outpatient (CLI) | payer OTHER ==
[~2022-10-13] MED LIST changes: +ACET-2267 PO; +DAPT500V18 IV; +GLYB1.253 PO; +IBUP-2473 PO; +LISI1TAB44 PO; +METF-399 PO
== END ==
LOC: WOUNDCARE 14:12
PROVIDERS: ATTEND Family Medicine
DX: E11.621 Type 2 diabetes mellitus with foot ulcer (principal); E11.65 Type 2 diabetes mellitus with hyperglycemia; E11.40 Type 2 diabetes mellitus with diabetic neuropathy, unspecified; E55.9 Vitamin D deficiency, unspecified; E66.01 Morbid (severe) obesity due to excess calories; L97.512 Non-pressure chronic ulcer of other part of right foot with fat layer exposed; M20.41 Other hammer toe(s) (acquired), right foot; M14.671 Charcot's joint, right ankle and foot; Z68.41 Body mass index [BMI] 40.0-44.9, adult
CPT/HCPCS: 11042; G0463

== ENCOUNTER 2022-10-16 21:56 | Inpatient (IN) | payer OTHER ==
[~2022-10-16] VITALS: Ht 190.5 cm; Wt 157.4 kg
[~2022-10-16 21:56] MED LIST changes: -ACET-2267 PO; -DAPT500V18 IV; -GLYB1.253 PO; -IBUP-2473 PO; -LISI1TAB44 PO; -METF-399 PO
[2022-10-16] MEDS ORDERED: ACETAMINOPHEN 500 MG TAB (TYLENOL) PO STA (22:16)
[2022-10-16] MEDS ORDERED: IBUPROFEN 800 MG (MOTRIN) TAB PO STA (22:16)
[2022-10-16 22:26] LABS: BILIRUBIN,URINE NEGATIVE (NEGATIVE); CLARITY,URINE SL CLOUDY; COLOR,URINE DARK YELLOW; GLUCOSE, URINE (UA) 3+ (NEGATIVE); KETONES,URINE TRACE (NEGATIVE); LEUKOCYTE ESTERASE ,URINE NEGATIVE (NEGATIVE); NITRITE,URINE NEGATIVE (NEGATIVE); PH,URINE 6.5 (5-9); PROTEIN,URINE 1+ (NEGATIVE)
[2022-10-16 22:29] LABS: BASOPHILS % (AUTO) 0 % (0-10); EOSINOPHILS % (AUTO) 0 % (0-10); HEMATOCRIT 44 % (40-54); HEMOGLOBIN 14.5 g/dL (13.3-17.7); LYMPHOCYTES # (AUTO) 0.7 10^3/uL (1.0-4.0); LYMPHOCYTES % (AUTO) 7 % (12-44); MEAN CORPUSCULAR HEMOGLOBIN 31 pg (25-34); MEAN CORPUSCULAR HGB CONC 33 g/dL (32-36); MEAN CORPUSCULAR VOLUME 91 fL (80-99); MEAN PLATELET VOLUME 10.3 fL (9.0-12.2); MONOCYTES # (AUTO) 0.4 10^3/uL (0.0-1.0); MONOCYTES % (AUTO) 4 % (0-12); NEUTROPHILS # (AUTO) 8.7 10^3/uL (1.8-7.8); NEUTROPHILS % (AUTO) 88 % (42-75); PLATELET COUNT 148 10^3/uL (130-400); WHITE BLOOD COUNT 9.9 10^3/uL (4.3-11.0)
[2022-10-16] MEDS ORDERED: NS IV 1000 ML 1,000 ML IV SCH ×2 (22:30→23:15)
[2022-10-16] MEDS ORDERED: CEFEPIME INJECTION 1,000 MG in NS (IVPB) 50 ML IV ONE (22:30)
[2022-10-16 22:38] LABS: BACTERIA,URINE FEW /HPF; RBC,URINE 50-100 /HPF
[2022-10-16 22:39] LABS: AMPHETAMINE SCREEN, URINE NEGATIVE (NEGATIVE); BARBITURATE SCREEN URINE NEGATIVE (NEGATIVE); BENZODIAZEPINES SCREEN URINE NEGATIVE (NEGATIVE); CANNABINOID SCREEN, URINE NEGATIVE (NEGATIVE); COCAINE SCREEN URINE NEGATIVE (NEGATIVE); METHADONE STAT NEGATIVE (NEGATIVE); OPIATE SCREEN URINE NEGATIVE (NEGATIVE); OXYCODONE STAT NEGATIVE (NEGATIVE); PROPOXYPHENE STAT NEGATIVE (NEGATIVE); TRICYCLIC ANTIDEPRESSANTS SCRE NEGATIVE (NEGATIVE)
[2022-10-16 22:39] LABS: ALBUMIN 4.3 GM/DL (3.2-4.5); CHLORIDE 100 MMOL/L (98-107); POTASSIUM 4.1 MMOL/L (3.6-5.0); SODIUM 135 MMOL/L (135-145)
[2022-10-16 22:40] LABS: CALCIUM 9.5 MG/DL (8.5-10.1); PROTHROMBIN TIME PATIENT 13.2 SEC (12.2-14.7)
[2022-10-16 22:41] LABS: AMYLASE 36 U/L (25-125)
[2022-10-16 22:42] LABS: GLUCOSE 338 MG/DL (70-105); TOTAL PROTEIN 7.9 GM/DL (6.4-8.2)
[2022-10-16 22:43] LABS: CARBON DIOXIDE 24 MMOL/L (21-32); FIBRIN DEGRADATION PRODUCTS 0.33 UG/ML (0.00-0.49)
[2022-10-16 22:44] LABS: BILIRUBIN,TOTAL 0.9 MG/DL (0.1-1.0)
[2022-10-16 22:45] LABS: ALKALINE PHOSPHATASE 84 U/L (40-136)
[2022-10-16 22:46] LABS: CREATININE SERUM 0.93 MG/DL (0.60-1.30); GFR ESTIMATED 106
[2022-10-16 22:47] LABS: BUN/CREATININE RATIO 25
--- NOTE | 2022-10-16 22:47 | ED General ---
General Chief Complaint: General Problems/Pain Stated Complaint: AB/UPPER BACK PAIN/SOA/FATIGUE Source of Information: Patient History of Present Illness Date Seen by Provider: Oct 16, 2022 Time Seen by Provider: 22:10 Initial Comments PT ARRIVES VIA POV FROM HOME PT HAS A MULTITUDE OF COMPLAINTS C/O RIGHT HIP PAIN AND RIGHT KNEE PAIN FOR AT LEAST 2 1/2 WEEKS--NO DIFFERENT TODAY, HAS NOT TAKEN ANYTHING FOR PAIN, HAS NOT SOUGHT CARE AT ANY TIME FOR THIS COMPLAINT C/O CHEST PAIN, UPPER BACK PAIN , BILATERAL SHOULDER BLADE PAIN SINCE YESTERDAY--HAS NOT TAKEN ANYTHING FOR PAIN, HAS NOT SOUGHT CARE UNTIL TONIGHT FOR THIS PROBLEM C/O DIABETIC FOOT ULCER ON RIGHT FOOT--GOES TO WOUND CARE, LAST VISIT WAS MONDAY "ALMOST HEALED UP" PER PT--NO DIFFERENT TONIGHT. C/O SHORTNESS OF BREATH SINCE YESTERDAY. NO COUGH C/O FATIGUE FOR SEVERAL DAYS PT HAS TEMP OF 102.6 ON ARRIVAL HERE. PT UNAWARE PT HAS NOT TAKEN ANYTHING FOR SYMPTOMS PT IS NON INSULIN DEPENDENT DIABETIC AND HAS HTN HE HAS NOT TAKEN HIS METFORMIN FOR THE LAST WEEK --STATES HE HAD A CT SCAN OF HIS ABDOMEN DONE AT [facility] 1 WEEK AGO, AND HAS NOT TAKEN THE METFORMIN SINCE THEN-STATES HE HAS BEEN HAVING BLOOD IN HIS URINE FOR 3-4 WEEKS. HE HAD DIARRHEA FOR A COUPLE OF DAYS WHEN IT FIRST STARTED, BUT NONE SINCE. HE STATES HE STARTED TAKING THE METFORMIN ABOUT A MONTH AGO, AFTER NOT TAKING IT FOR ABOUT A YEAR NO ABDOMINAL PAIN NO NAUSEA/VOMITING HE DOES NOT CHECK HIS BLOOD SUGARS OR FOLLOW ANY DIET. HE IS PRESCRIBED LISINOPRIL FOR BLOOD PRESSURE--STATES HE JUST STARTED TAKING IT AGAIN ABOUT A MONTH AGO, HAD NOT BEEN ON IT FOR AT LEAST A YEAR PT HAS HISTORY OF OSTEOMYELITIS TO HIS RIGHT FOOT AND HAS HAD PRIOR AMPUTATION OF RIGHT SECOND TOE DUE TO THIS. HIS CURRENT ULCER HAS BEEN THERE FOR OVER A YEAR. PT MOVED HERE FROM [place] EARLY 2021. [facility] Allergies and Home Medications Allergies Coded Allergies: amoxicillin (Verified Allergy, Unknown, 07/12/21) Patient Home Medication List Home Medication List Reviewed: Yes Cephalexin (Cephalexin) 500 Mg Tablet, 500 MG PO QID Prescribed by: ANMOL MORGAN on 07/12/211945 Doxycycline Hyclate (Doxycycline Hyclate) 100 Mg Tablet, 100 MG PO BID Prescribed by: ANMOL MORGAN on 07/12/211945 Review of Systems Review of Systems Constitutional: see HPI, fever, malaise EENTM: no symptoms reported Respiratory: see HPI, short of breath Cardiovascular: see HPI, chest pain Gastrointestinal: see HPI Genitourinary: see HPI Musculoskeletal: see HPI, back pain, other (PER HPI) Skin: see HPI Psychiatric/Neurological: No Symptoms Reported; Denies Headache Hematologic/Lymphatic: No Symptoms Reported Immunological/Allergic: no symptoms reported Past Oqrivqm-Bzzntr-Rbnurg Hx Patient Social History Tobacco Use?: No Use of E-Cig and/or Vaping dev: No Substance use?: No Alcohol Use?: Yes Alcohol Frequency: Once in a while Past Medical History Surgery/Hospitalization HX: pmh: dm2, htn Surgeries: Yes (R 2ND toe removal from osteomyelitis; RIGHT KNEE SCOPE; INGROWN TOENAILS) Orthopedic Respiratory: Yes Asthma Cardiac: Yes Hypertension Neurological: No Genitourinary: No Gastrointestinal: No Musculoskeletal: Yes (OSTEOMYELITIS WITH AMPUTATION OF R 2ND TOE;R KNEE SCOPE) Amputee Endocrine: Yes (OBESITY) Diabetes, Non-Insulin dep HEENT: No Cancer: No Psychosocial: No Integumentary: Yes (CHRONIC DIABETIC FOOT ULCER, OSTEOMYELITIS) Blood Disorders: No Physical Exam Vital Signs Vital Signs - First Documented 10/16/22 22:07 Temp 39.2 Pulse 148 Resp 22 B/P (MAP) 225/132 (163) Pulse Ox 96 O2 Delivery Room Air Capillary Refill : Height, Weight, BMI Height: '" Weight: lbs. oz. kg; 43.00 BMI Method: General Appearance: No Apparent Distress, WD/WN, Obese (MORBIDLY) HEENT: PERRL/EOMI Neck: Full Range of Motion, Normal Inspection, Non Tender, Supple Respiratory: Normal Breath Sounds, No Accessory Muscle Use, No Respiratory Distress Cardiovascular: No JVD, No Murmur, Normal Peripheral Pulses, Tachycardia Gastrointestinal: Non Tender, Soft Back: No CVA Tenderness Extremity: Normal Capillary Refill, Other (WOUND TO PLANTAR ASPECT OF RIGHT FOOT AT BASE OF 3RD TOE APPEARS TO BE NEARLY HEALED, THERE DOES NOT APPEAR TO BE SIGNIFICANT INFECTION AT THIS TIME. NO REDNESS, NO FLUCTUANCE, NO STREAKS. DISTAL VASCULAR INTACT, MOTOR/SENSORY INTACT ; SEROSANGUINOUS DRAINAGE ON DRESSING. NO PURULENT DRAINAGE. ) Neurologic/Psychiatric: Alert, Oriented x3, No Motor/Sensory Deficits, Normal Mood/Affect, grievance manager II-XII Norm as Tested Skin: Normal Color, Damp; No Rash; Other (VERY WARM) Focused Exam Sepsis Stage: Sepsis Possible Source: Other (UTI; ALSO SOFT TISSUE/FOOT ULCER) Lactate Level 10/16/22 22:13: Lactic Acid Level 2.40*H 10/17/22 00:04: Lactic Acid Level 2.04*H Time of Focused Exam: 23:30 Respiratory: Normal Breath Sounds, No Accessory Muscle Use, No Respiratory Distress Cardiovascular: No Edema, No JVD, No Murmur, Normal Peripheral Pulses, Tac hycardia Capillary Refill: Less Than 3 Seconds Skin: normal color, warm/dry Lactic Acid Level Laboratory Tests Test 10/16/22 22:13 10/17/22 00:04 Lactic Acid Level 2.40 MMOL/L (0.50-2.00) *H 2.04 MMOL/L (0.50-2.00) *H Within 3hrs of presentation: Admin fluids, Admin ABX, Blood cultures prior to ABX's, Focus exam, Lactate level Progress/Results/Core Measures Suspected Sepsis SIRS Temperature: Pulse: Respiratory Rate: Laboratory Tests 10/16/22 22:13: White Blood Count 9.9 Blood Pressure / Mean: 10/16/22 22:13: Lactic Acid Level 2.40*H 10/17/22 00:04: Lactic Acid Level 2.04*H Laboratory Tests 10/16/22 22:13: Creatinine 0.93, INR Comment 1.0, Platelet Count 148, Total Bilirubin 0.9 Results/Orders Lab Results Laboratory Tests Test 10/16/22 22:11 10/16/22 22:13 10/17/22 00:04 Range/Units Urine Color DARK YELLOW Urine Clarity SL CLOUDY Urine pH 6.5 5-9 Urine Specific [place] 1.010 L 1.016-1.022 Urine Protein 1+ H NEGATIVE Urine Glucose (UA) 3+ H NEGATIVE Urine Ketones TRACE H NEGATIVE Urine Nitrite NEGATIVE NEGATIVE Urine Bilirubin NEGATIVE NEGATIVE Urine Urobilinogen 0.2 < = 1.0 MG/DL Urine Leukocyte Esterase NEGATIVE NEGATIVE Urine RBC (Auto) 3+ H NEGATIVE Urine RBC 50-100 H /HPF Urine WBC 5-10 H /HPF Urine Crystals NONE /LPF Urine Bacteria FEW H /HPF Urine Casts NONE /LPF Urine Mucus NEGATIVE /LPF Urine Culture Indicated CULTURE PENDING Urine Opiates Screen NEGATIVE NEGATIVE Urine Oxycodone Screen NEGATIVE NEGATIVE Urine Methadone Screen NEGATIVE NEGATIVE Urine Propoxyphene Screen NEGATIVE NEGATIVE Urine Barbiturates Screen NEGATIVE NEGATIVE Ur Tricyclic Antidepressants Screen NEGATIVE NEGATIVE Urine Phencyclidine Screen NEGATIVE NEGATIVE Urine Amphetamines Screen NEGATIVE NEGATIVE Urine Methamphetamines Screen NEGATIVE NEGATIVE Urine Benzodiazepines Screen NEGATIVE NEGATIVE Urine Cocaine Screen NEGATIVE NEGATIVE Urine Cannabinoids Screen NEGATIVE NEGATIVE White Blood Count 9.9 4.3-11.0 10^3/uL Red Blood Count 4.76 4.30-5.52 10^6/uL Hemoglobin 14.5 13.3-17.7 g/dL Hematocrit 44 40-54 % Mean Corpuscular Volume 91 80-99 fL Mean Corpuscular Hemoglobin 31 25-34 pg Mean Corpuscular Hemoglobin Concent 33 32-36 g/dL Red Cell Distribution Width 13.5 10.0-14.5 % Platelet Count 148 130-400 10^3/uL Mean Platelet Volume 10.3 9.0-12.2 fL Immature Granulocyte % (Auto) 0 % Neutrophils (%) (Auto) 88 H 42-75 % Lymphocytes (%) (Auto) 7 L 12-44 % Monocytes (%) (Auto) 4 0-12 % Eosinophils (%) (Auto) 0 0-10 % Basophils (%) (Auto) 0 0-10 % Neutrophils # (Auto) 8.7 H 1.8-7.8 10^3/uL Lymphocytes # (Auto) 0.7 L 1.0-4.0 10^3/uL Monocytes # (Auto) 0.4 0.0-1.0 10^3/uL Eosinophils # (Auto) 0.0 0.0-0.3 10^3/uL Basophils # (Auto) 0.0 0.0-0.1 10^3/uL Immature Granulocyte # (Auto) 0.0 0.0-0.1 10^3/uL Neutrophils % (Manual) 81 % Lymphocytes % (Manual) 7 % Monocytes % (Manual) 3 % Band Neutrophils 9 % Erythrocyte Sedimentation Rate 14 0-15 MM/HR Prothrombin Time 13.2 12.2-14.7 SEC INR Comment 1.0 0.8-1.4 Activated Partial Thromboplast Time 29 24-35 SEC D-Dimer 0.33 0.00-0.49 UG/ML Sodium Level 135 135-145 MMOL/L Potassium Level 4.1 3.6-5.0 MMOL/L Chloride Level 100 98-107 MMOL/L Carbon Dioxide Level 24 21-32 MMOL/L Anion Gap 11 5-14 MMOL/L Blood Urea Nitrogen 23 H 7-18 MG/DL Creatinine 0.93 0.60-1.30 MG/DL Estimat Glomerular Filtration Rate 106 BUN/Creatinine Ratio 25 Glucose Level 338 H 70-105 MG/DL Lactic Acid Level 2.40 *H 2.04 *H 0.50-2.00 MMOL/L Calcium Level 9.5 8.5-10.1 MG/DL Corrected Calcium 9.3 8.5-10.1 MG/DL Magnesium Level 1.8 1.6-2.4 MG/DL Total Bilirubin 0.9 0.1-1.0 MG/DL Aspartate Amino Transf (AST/SGOT) 19 5-34 U/L Alanine Aminotransferase (ALT/SGPT) 26 0-55 U/L Alkaline Phosphatase 84 40-136 U/L Total Creatine Kinase 269 H 30-200 U/L Creatine Kinase MB 2.2 <6.6 NG/ML Myoglobin 65.2 10.0-92.0 NG/ML Troponin I < 0.028 <0.028 NG/ML C-Reactive Protein High Sensitivity 2.52 H 0.00-0.50 MG/DL B-Type Natriuretic Peptide 17.2 <100.0 PG/ML Total Protein 7.9 6.4-8.2 GM/DL Albumin 4.3 3.2-4.5 GM/DL Amylase Level 36 25-125 U/L Lipase 31 8-78 U/L Beta-Hydroxybutyrate (Chem panel) 0.19 0.00-0.27 MMOL/L Serum Alcohol < 10 <10 MG/DL Influenza Type A (RT-PCR) Not Detected Not Detecte Influenza Type B (RT-PCR) Not Detected Not Detecte SARS-CoV-2 RNA (RT-PCR) Not Detected Not Detecte My Orders Orders - JIE ALMONTE DO Covid 19 Inhouse Test (10/16/22 22:05) Influenza A And B By Pcr (10/16/22 22:05) Ed Iv/Invasive Line Start (10/16/22 22:16) Ekg Tracing (10/16/22 22:16) O2 (10/16/22 22:16) Monitor-Rhythm Ecg Trace Only (10/16/22 22:16) Chest 1 View, Ap/Pa Only (10/16/22 22:16) Knee, Right, 3 Views (10/16/22 22:16) Foot, Right, 3 View (10/16/22 22:16) Pelvis With Right Hip 2-3views (10/16/22 22:16) Alcohol (10/16/22 22:16) Amylase (10/16/22 22:16) Bnp Edita (10/16/22 22:16) Cbc With Automated Diff (10/16/22 22:16) Comprehensive Metabolic Panel (10/16/22 22:16) Creatine Kinase (10/16/22 22:16) Creatine Kinase Mb (10/16/22 22:16) Hs C Reactive Protein (10/16/22 22:16) Fibrin Degradation Products (10/16/22 22:16) Drug Screen Stat (Urine) (10/16/22 22:16) Lactic Acid Analyzer (10/16/22 22:16) Lipase (10/16/22 22:16) Magnesium (10/16/22 22:16) Protime With Inr (10/16/22 22:16) Partial Thromboplastin Time (10/16/22 22:16) Ua Culture If Indicated (10/16/22 22:16) Blood Culture (10/16/22 22:16) Erythrocyte Sedimentation Rate (10/16/22 22:16) Myoglobin Serum (10/16/22 22:16) Troponin I Bandera (10/16/22 22:16) Ed Iv/Invasive Line Start (10/16/22 22:16) Ns Iv 1000 Ml (Sodium Chloride 0.9%) (10/16/22 22:30) Acetaminophen Tablet (Tylenol Tablet) (10/16/22 22:16) Ibuprofen Tablet (Motrin Tablet) (10/16/22 22:16) Sputum Culture (10/16/22 22:16) Urine Culture (10/16/22 22:16) Ed Iv/Invasive Line Start (10/16/22 22:16) Ed Iv/Invasive Line Start (6/25/23 22:16) O2 (10/16/22 22:16) Remove Rings In Anticipation O (10/16/22 22:16) Cefepime Injection (Maxipime Injection) (10/16/22 22:30) Manual Differential (10/16/22 22:13) Aspirin Chewable Tablet (Baby Aspirin Ch (10/16/22 23:15) Beta Hydroxybutyrate (10/16/22 23:03) Hemoglobin A1c (10/16/22 23:03) Ed Iv/Invasive Line Start (10/16/22 23:03) Ns Iv 1000 Ml (Sodium Chloride 0.9%) (10/16/22 23:15) Vancomycin Injection (Vancomycin Injecti (10/16/22 23:15) Ns (Ivpb) (Sodium Chloride 0.9%) (10/16/22 23:09) Ed Iv/Invasive Line Start (10/17/22 00:17) Ns Iv 1000 Ml (Sodium Chloride 0.9%) (10/17/22 00:30) Medications Given in ED Current Medications Medications Dose Ordered Sig/Anna Route Start Time Stop Time Status Last Admin Dose Admin Aspirin 324 mg ONCE ONCE PO 10/16/22 23:15 10/16/22 23:16 DC 10/16/22 23:36 324 MG Cefepime HCl 1000 mg/Sodium Chloride 50 ml @ 100 mls/hr ONCE ONCE IV 10/16/22 22:30 10/16/22 22:59 DC 10/16/22 22:35 100 MLS/HR Vital Signs/I&O 10/16/22 10/16/22 10/16/22 10/17/22 22:07 22:35 22:35 00:09 Temp 39.2 39.2 39.2 38.4 Pulse 148 Resp 22 B/P (MAP) 225/132 (163) Pulse Ox 96 O2 Delivery Room Air 10/17/22 00:00 Intake Total 1050 ml Balance 1050 ml Capillary Refill : Progress Note : Progress Note PLACED IN ISOLATION ROOM PPE WORN SEPSIS PROTOCOL INITIATED CHEST PAIN PROTOCOL ALSO INITIATED GIVEN: -IV FLUIDS -ANTIBIOTICS -TYLENOL AND MOTRIN -ASPIRIN NO DETERIORATION IN PT'S CONDITION DURING ER STAY NO COMPLAINTS OF CHEST PAIN OR SHORTNESS OF BREATH FOR REMAINDER OF ER STAY VITALS ON ARRIVAL: TEMP 39.2 = 102.6, HR 148, RR 22, BP 225/132, O2 SAT 96% ON ROOM AIR VITALS AT TIME OF ADMIT: TEMP 38.4 = 101.2, HR 118, RR 22, BP 147/96, O2 SAT 96% ON ROOM AIR VITALS STABLE NO HYPOTENSION PERTINENT LAB: CBC NORMAL WITH NORMAL WBC 9.9 ELECTROLYTES NORMAL BUN 23 / CR 0.93 GLU 338 TROPONIN--NEGATIVE BNP NORMAL AT 17.2 BETA-HYDROXYBUTYRATE 0.19 LACTIC ACID 2.4 UA WITH 1+ PROTEIN,3+ GLUCOSE, TRACE KETONES, 3+ BLOOD WITH 50-100 RBC'S, 50-10 WBC'S, FEW BACTERIA COVID AND FLU TESTS NEGATIVE UDS AND ETOH NEGATIVE. CXR WITH BIBASILAR INFILTRATES, PENDING RADIOLOGIST REVIEW EKG SHOWS SINUS TACHYCARDIA WITHOUT ACUTE ST SEGMENT CHANGES. REVIEWED PRIOR RECORDS--SINGLE ER VISIT 07/12/21 FOR THIS SAME FOOT ULCER. DISCUSSED TEST RESULTS, NEED FOR ADMIT AND PT IS AGREEABLE TO PLAN ECG Initial ECG Impression Date: Oct 16, 2022 Initial ECG Impression Time: 22:24 Initial ECG Rate: 126 Initial ECG Rhythm: S.Tach Initial ECG Intervals: Normal Initial ECG Impression: Nonspecific Changes Initial ECG Comparisson: No Previous ECG Available Comment INTERPRETED BY ME Diagnostic Imaging Comments XRAYS--ALL PENDING RADIOLOGIST REVIEW CXR--BILATERAL INFILTRATES PELVIS / RIGHT HIP--NO FX OR DISLOCATION RIGHT KNEE--NO FX OR DISLOCATION RIGHT FOOT--PRIOR AMPUTATION SECOND TOE, NO ACUTE PROCESS Reviewed: Reviewed by Me Departure Communication (Admissions) 1038--SPOKE WITH DR. NIETO, ACCEPTS PT FOR ADMIT. Impression Primary Impression: Sepsis Additional Impressions: Uncontrolled hypertension UTI (urinary tract infection) Diabetic ulcer of right foot Uncontrolled diabetes mellitus Pneumonia Disposition: 09 ADMITTED INPATIENT Condition: Stable Admissions Decision to Admit Reason: Admit from ER (General) Decision to Admit/Date: Oct 16, 2022 Time/Decision to Admit Time: 23:45 Departure-Patient Inst. Referrals: KEN COREY APRN (PCP/Family) Primary Care Physician JIE ALMONTE DO Oct 16, 2022 22:47
[2022-10-16 22:48] LABS: ALANINE AMINOTRANSFERASE 26 U/L (0-55); MAGNESIUM 1.8 MG/DL (1.6-2.4)
[2022-10-16 22:50] LABS: CREATINE KINASE 269 U/L (30-200); LIPASE 31 U/L (8-78)
[2022-10-16 22:53] LABS: BAND NEUTROPHILS 9 %; ERYTHROCYTE SEDIMENTATION RATE 14 MM/HR (0-15); LYMPHOCYTES % (MANUAL) 7 %; MONOCYTES % (MANUAL) 3 %; NEUTROPHILS % (MANUAL) 81 %
[2022-10-16 22:56] LABS: CREATINE KINASE MB 2.2 NG/ML (<6.6)
[2022-10-16] MEDS ORDERED: NS (IVPB) 250 ML ONE (23:09)
[2022-10-16] MEDS ORDERED: ASPIRIN 81 MG CHEW (CHILDREN'S ASA) PO ONE (23:15)
[2022-10-16] MEDS: VANCOMYCIN INJECTION 1,000 MG in NS (IVPB) 250 ML IV SCH (23:36)
[2022-10-17] VITALS (13 sets, daily range): BP systolic 111–191; BP diastolic 72–112
[2022-10-17] MEDS ORDERED: NS IV 1000 ML 1,000 ML IV SCH (00:30)
[2022-10-17] MEDS: VANCOMYCIN INJECTION 1,000 MG in NS (IVPB) 250 ML IV SCH (00:37)
[2022-10-17] MEDS ORDERED: ONDANSETRON 4 MG/2 ML (SDV) Z0FRAN IV PRN ×2 (01:30→09:30)
[2022-10-17] MEDS ORDERED: cloNIDine 0.1 MG (CATAPRES) TAB PO PRN (01:30)
[2022-10-17] MEDS ORDERED: IBUPROFEN 800 MG (MOTRIN) TAB PO PRN (01:30)
[2022-10-17] MEDS ORDERED: fentaNYL INJ 100 MCG/2 ML AMP IV PRN (01:30)
[2022-10-17] MEDS: NS IV 1000 ML 1,000 ML IV SCH ×2 (01:38→08:16)
[2022-10-17] MEDS ORDERED: RT-ALBUTEROL/IPRATROPIUM 3 ML (DUONEB) VIAL INH PRN (02:15)
[2022-10-17] MEDS: CEFEPIME 1,000 MG/NS 50 ML IVPB IV SCH ×10 (04:39→22:52)
--- NOTE | 2022-10-17 06:04 | History & Physical-Hospitalist ---
History of Present Illness HPI/Chief Complaint Chief complaint: Sepsis from UTI and pneumonia HPI: This is a 42-year-old male diabetic who presented to the ER with weakness and fever found to have UTI pneumonia and mmp-bo-txewluw diabetes. Home meds will be restarted. Patient appears to be much improved. Hep locking IV fluid discontinue telemetry moving to fourth floor. Source: patient Exam Limitations: no limitations Date Seen 10/17/22 Time Seen by a Provider: 09:00 Attending Physician Shital Rios Aprn PCP Admitting Physician: Radha Myers DO Attending Physician: Radha Myers DO Referring Physician Date of Admission Oct 17, 2022 at 00:40 Home Medications & Allergies Home Medications Reviewed patient Home Medication Reconciliation performed by pharmacy medication reconciliations lock technician and/or nursing. Patients Allergies have been reviewed. Allergies Allergies Coded Allergies amoxicillin (Verified Allergy, Unknown, 07/12/21) Past Gbmxfxr-Hblzod-Uyitac Hx Patient Social History Marrital Status: single Employed/Student: unemployed Tobacco Use?: No Smoking Status: Never a Smoker Smokeless Tobacco Frequency: Never a User Use of E-Cig and/or Vaping dev: No Substance use?: No Alcohol Use?: Yes Alcohol type: Beer Alcohol Frequency: Once in a while Pt feels they are or have been: No Immunizations Up To Date Tetanus Booster (TDap): Unknown Hepatitis A: No Hepatitis B: No Current Status Advance Directives: No Communicates: Verbally Primary Language: [place] Preferred Spoken Language: [place] Is interpretation needed?: No Sensory deficits: Vision impairment Implanted or Applied Medical D: None Past Medical History Surgeries: Orthopedic Asthma Hypertension Amputee Diabetes, Non-Insulin dep Blood Disorders: No Review of Systems Constitutional: see HPI, malaise, weakness Respiratory: cough Physical Exam Physical Exam Vital Signs Vital Signs - First Documented 10/16/22 10/17/22 10/17/22 22:07 02:00 11:03 Temp 39.2 Pulse 148 Resp 22 B/P (MAP) 225/132 (163) Pulse Ox 96 O2 Delivery Room Air O2 Flow Rate 0.00 FiO2 21 Capillary Refill : Less Than 3 Seconds Height, Weight, BMI Height: '" Weight: lbs. oz. kg; 43.59 BMI Method: General Appearance: No Apparent Distress, Chronically ill, Obese Eyes: Right Eye Normal Inspection, Right Eye PERRL HEENT: PERRL/EOMI, Normal ENT Inspection, Pharynx Normal, Moist Mucous Membranes Neck: Full Range of Motion, Normal Inspection, Non Tender Respiratory: Chest Non Tender, Lungs Clear, Normal Breath Sounds, No Accessory Muscle Use, No Respiratory Distress Cardiovascular: Regular Rate, Rhythm, No Edema, No Gallop, No JVD, No Murmur, Normal Peripheral Pulses Gastrointestinal: Normal Bowel Sounds, No Organomegaly, No Pulsatile Mass, Non Tender, Soft Back: Normal Inspection, No CVA Tenderness, No Vertebral Tenderness Extremity: Normal Capillary Refill, Normal Inspection, Normal Range of Motion, Non Tender, No Calf Tenderness, No Pedal Edema Neurologic/Psychiatric: Alert, Oriented x3, No Motor/Sensory Deficits, Normal Mood/Affect Skin: Normal Color, Warm/Dry Lymphatic: No Adenopathy Results Results/Procedures Labs Laboratory Tests 10/16/22 22:13 Patient resulted labs reviewed. Assessment/Plan Admission Diagnosis Assessment: Sepsis UTI Pneumonia Diabetes Hypertension Elevated BMI Plan: Supportive care IV antibiotics Hep-Lock IV fluid DC telemetry Moved to fourth floor Admission Status: Observation Clinical Quality Measures AMI/AHF: ASA po Prior to arrival: RADHA Kimble DO Oct 17, 2022 06:04
[2022-10-17] MEDS: inSUlin ASPART (NovoLOG) 1 UNIT/0.01 ML (CHARGE PER UNIT) SC SCH ×4 (06:42→20:31)
--- NOTE | 2022-10-17 07:40 | Diagnostic Imaging Report ---
EXAMINATION: Right knee 3 views HISTORY: knee pain COMPARISON: None available. FINDINGS: Alignment is normal. No fracture is seen. Joint spaces are normal. IMPRESSION: 1. No fracture. Dictated by: Dictated on workstation # [id number]
[2022-10-17] MEDS: VANCOMYCIN 1500MG/300ML PREMIX IV SCH ×3 (08:04→23:25)
--- NOTE | 2022-10-17 08:05 | Diagnostic Imaging Report ---
INDICATION: Foot pain COMPARISON: 06/13/2022 TECHNIQUE: 3 radiographs of the right foot dated 10/16/2022. FINDINGS: Amputation of the 2nd toe at the level of the distal metatarsal is again identified, appearing stable from the prior examination. No acute fracture or dislocation. No destructive osseous process. Small plantar calcaneal enthesophyte. No suspicious radiopaque foreign body. IMPRESSION: No acute osseous abnormality with stable amputation of the 2nd toe. Agree with preliminary interpretation. Dictated by: Dictated on workstation # [id number]
--- NOTE | 2022-10-17 08:42 | Diagnostic Imaging Report ---
CLINICAL INDICATION: Patient with chest pain and fever and dyspnea. EXAM: Chest x-ray PA view only. COMPARISON: None. FINDINGS: Lungs/pleura: There is amorphous airspace opacities involving the bilateral perihilar regions and medial bibasilar regions which may represent atelectasis versus infiltrates. There is no pneumothorax. There is no pleural effusion. Mediastinum: Unremarkable. Pulmonary vasculature: Unremarkable. Heart: Unremarkable. Bones/extrathoracic soft tissue: There are degenerative spurs involving the thoracic spine. IMPRESSION: There is mild bilateral perihilar and medial bibasilar atelectasis versus infiltrate. I agree with the Emergency Room clinician's preliminary impression. Dictated by: Dictated on workstation # [id number]
--- NOTE | 2022-10-17 08:48 | Diagnostic Imaging Report ---
INDICATION: Pelvic pain COMPARISON: None available TECHNIQUE: 3 radiographs of the pelvis and right hip dated 10/16/2022. FINDINGS: Degenerative changes noted within the partially visualized lower lumbar spine and right greater than left sacroiliac joints. No acute fracture or dislocation. No destructive osseous process. The right femoral head maintains normal shape and contour. The bilateral hip joint spaces are well-maintained. No suspicious radiopaque foreign body. IMPRESSION: No acute osseous abnormality. Scattered degenerative changes, particularly involving the partially visualized lower lumbar spine and the right greater than left sacroiliac joints. Dictated by: Dictated on workstation # [id number]
[2022-10-17] MEDS ORDERED: HYDROmorphone 2 MG/ML VIAL (DILAUDID) IV PRN (09:30)
[2022-10-17] MEDS ORDERED: CALCIUM CARBONATE 500 MG (TUMS) TAB.CHEW PO PRN (09:30)
[2022-10-17] MEDS ORDERED: polyethylene glycoL POWDER 17 GM (MIRALAX) PACK PO PRN (09:30)
[2022-10-17] MEDS ORDERED: diphenhydrAMINE 25 MG TAB (BENADRYL) PO PRN (09:30)
[2022-10-17] MEDS ORDERED: ONDANSETRON 4 MG (ZOFRAN) ORAL DISSOLVE TAB PO PRN (09:30)
[2022-10-17] MEDS ORDERED: BISACODYL 10 MG SUPP (DULCOLAX) PR PRN (09:30)
[2022-10-17] MEDS ORDERED: MELATONIN 3 MG TABLET PO PRN (09:30)
[2022-10-17] MEDS ORDERED: ACETAMINOPHEN 325 MG TABLET PO PRN (09:30)
[2022-10-17] MEDS ORDERED: ANTACID SUSP 30 ML UDC (MYLANTA) PO PRN (09:30)
[2022-10-17] MEDS ORDERED: diphenhydrAMINE 50 MG/ML INJ (BENADRYL) IVP PRN (09:30)
[2022-10-17] MEDS ORDERED: MILK OF MAGNESIA 400 MG/5 ML 30 ML UDC PO PRN (09:30)
[2022-10-17] MEDS ORDERED: LACTULOSE SYRUP 10GM/15ML (ENULOSE) 30ML UDC PO PRN (09:30)
--- NOTE | 2022-10-17 09:47 | Occ Therapy Progress Note ---
Therapy Progress Note Per observation and communication w/ PT, No OT intervention is needed, discontinue OT order CLAUDIA MARCELINO OT Oct 17, 2022 09:47
--- NOTE | 2022-10-17 09:51 | Physical Therapy Evaluation ---
PT Evaluation-General Medical Diagnosis Admission Date Oct 17, 2022 at 00:40 Medical Diagnosis: sepsis/pneumonia/UTI Onset Date: Oct 17, 2022 Therapy Diagnosis Therapy Diagnosis: debility Precautions Precautions/Isolations: Fall Prevention, Standard Precautions Referral Physician: Louis Reason for Referral: Evaluation/Treatment Medical History Pertinent Medical History: DM, HTN Current History ER secondary to fever/right hip/knee pain Reviewed History: Yes Social History Home: Single Level Current Living Status: Other Family PT Steps Into Home: 2 Prior Prior Level of Function SCALE: Activities may be completed with or without assistive devices. 6-Ofordblzaf-hzsglgw completes the activity by him/herself with no assistance from a helper. 5-Set-up or Clean-up Assistance-helper sets up or cleans up; patient completes activity. Bradford assists only prior to or following the activity. 4-Supervision or Touching Assistance-helper provides verbal cues and/or touching/steadying and/or contact guard assistance as patient completes activity. Assistance may be provided throughout the activity or intermittently. 3-Partial/Moderate Assistance-helper does LESS THAN HALF the effort. Bradford lifts, holds or supports trunk or limbs, but provides less than half the effort. 2-Substantial/Maximal Assistance-helper does MORE THAN HALF the effort. Bradford lifts or holds trunk or limbs and provides more than half the effort. 4-Lfzelleam-wxhhhi does ALL the effort. Patient does none of the effort to complete the activity. Or, the assistance of 2 or more helpers is required for the patient to complete the activity. If activity was not attempted, code reason: 7-Patient Refused. 9-Not Applicable-not attempted and the patient did not perform the activity before the current illness, exacerbation or injury. 10-Not Attempted due to Environmental Limitations-(lack of equipment, weather restraints, etc.). 88-Not Attempted due to Medical Conditions or Safety Concerns. Bed Mobility: 6 Transfers (B,C,W/C): 6 Gait: 6 Stairs: 6 Indoor Mobility (Ambulation): Independent Stairs: Independent Prior Devices Use: None PT Evaluation-Current Subjective Patient agrees to PT. Objective Patient Orientation: Normal For Age ROM/Strength ROM Lower Extremities bilateral LE WFL Strength Lower Extremities 4/5 grossly bilateral LE all planes Integumentary/Posture Bowel Incontinence: No Bladder Incontinence: No Posture WFL Neuromuscular (Tone, Coordination, Reflexes) grossly intact Sensory Vision: Wears Glasses Hearing: Functional Transfers Lying to Sitting/Side of Bed(Q: 6 Sit to Stand (QC): 6 Chair/Nnq-ac-Itfze Xfer(QC): 6 Gait Mode of Locomotion: Walk Anticipated Mode of Locomotion: Walk Walk 10 feet (QC): 6 Walk 50 ft with 2 Turns(QC): 6 Walk 150 ft (QC): 6 Distance: 200' Gait Assistive Device: None Comments/Gait Description safe and functional with no deviation Balance Sitting Static: Normal Sitting Dynamic: Normal Standing Static: Normal Standing Dynamic: Normal Assessment/Needs Patient is currently at independent PLOF with all gross motor skills and does not require skilled therapy intervention. Patient donned socks and toileted independent with OT being notified. Rehab Potential: Fair PT Plan Treatment/Plan Treatment Plan: Discontinue PT Treatment Duration: Oct 17, 2022 Frequency: 1 time per week Estimated Hrs Per Day: .25 hour per day Patient and/or Family Agrees t: Yes Time Time In: 935 Time Out: 945 DATE: Oct 17, 2022 Total Billed Treatment Time: 10 Total Billed Treatment 1 visit [facility] 10 min LEE ANN MIRANDA PT Oct 17, 2022 09:51
[2022-10-17] MEDS: ENOXAPARIN 40 MG/0.4 ML (LOVENOX) SYR SC SCH (10:38)
[2022-10-17] MEDS ORDERED: METF-399 PO (14:31)
[2022-10-17] MEDS ORDERED: LISI1TAB44 PO (14:32)
[2022-10-17] MEDS ORDERED: IBUP-2473 PO (14:32)
[2022-10-17] MEDS ORDERED: ACET-2267 PO (14:33)
--- NOTE | 2022-10-17 15:34 | Wound Care Assessment ---
Wound Care Assessment Date Seen by Provider: Oct 17, 2022 Time Seen by Provider: 15:29 Chief Complaint WG1 DFU 3 MTH HPI This pleasant 42 year old patient is well known to my outpatient clinic. Silvestre has struggled with recurrent DFU for a long while. He has a long h/o poorly controlled DM2 (latest A1C as outpatient was 9.8 on 10/05/22). He is apathetic about his diabetic control and admits to being less than faithful with monitoring and medication adjustments. He has a h/o amputation of 2 digit on R. side with Charcot changes and hammer toe deformities complicating off loading. He is following with podiatry for custom shoes currently. Off loading surgery may be an option in the future as well. ESR is reassuring but CRP is elevated. Plain films yesterday without obvious osteomyelitis. He is on broad spectrum antibiotics for pneumonia. On exam today his ulcer appears nearly healed. Plan to continue with current off loading and pain with betadine bid. He has an appointment with me Monday and he is encouraged to keep the appointment if he is discharged. If not, will cancel and he will follow up with podiatry as an outpatient in October. Past Medical History: Admits Diabetes Type II Charcot changes to foot, Obesity (BMI 42.9) Smoking Status: Never a Smoker Recreational Drug Use: No Alcohol Use: Denies Use Review of Systems General: Fatigue Musculoskeletal: back pain Neurological: Weakness Exam Vital Signs Date Time Temp Pulse Resp B/P (MAP) Pulse Ox O2 Delivery O2 Flow Rate FiO2 10/17/22 14:06 36.6 96 20 147/92 (110) 98 Room Air 10/17/22 11:03 0.00 10/17/22 02:00 21 Capillary Refill : Less Than 3 Seconds General Appearance: no apparent distress, obese HEENT: other (normal hearing) Neck: full range of motion Cardiovascular: no edema Respiratory: no respiratory distress, no accessory muscle use Extremities: no pedal edema Neurologic/Psychiatric: alert, normal mood/affect, oriented x 3 Skin: normal color, warm/dry Skin Problem Location: lower extremities Wound assessment: The epitheliazation is large. There is no tunneling or undermining. Drainage is none. Necrotic is none. Results Laboratory Tests 10/16/22 22:11: Urine Color DARK YELLOW, Urine Clarity SL CLOUDY, Urine pH 6.5, Urine Specific Edison 1.010L, Urine Protein 1+H, Urine Glucose (UA) 3+H, Urine Ketones TRACEH, Urine Nitrite NEGATIVE, Urine Bilirubin NEGATIVE, Urine Urobilinogen 0.2, Urine Leukocyte Esterase NEGATIVE, Urine RBC (Auto) 3+H, Urine RBC 50-100H, Urine WBC 5-10H, Urine Crystals NONE, Urine Bacteria FEWH, Urine Casts NONE, Urine Mucus NEGATIVE, Urine Culture Indicated CULTURE PENDING, Urine Opiates Screen NEGATIVE, Urine Oxycodone Screen NEGATIVE, Urine Methadone Screen NEGATIVE, Urine Propoxyphene Screen NEGATIVE, Urine Barbiturates Screen NEGATIVE, Ur Tricyclic Antidepressants Screen NEGATIVE, Urine Phencyclidine Screen NEGATIVE, Urine Amphetamines Screen NEGATIVE, Urine Methamphetamines Screen NEGATIVE, Urine Benzodiazepines Screen NEGATIVE, Urine Cocaine Screen NEGATIVE, Urine Cannabinoids Screen NEGATIVE 10/16/22 22:13: White Blood Count 9.9, Red Blood Count 4.76, Hemoglobin 14.5, Hematocrit 44, Mean Corpuscular Volume 91, Mean Corpuscular Hemoglobin 31, Mean Corpuscular Hemoglobin Concent 33, Red Cell Distribution Width 13.5, Platelet Count 148, Mean Platelet Volume 10.3, Immature Granulocyte % (Auto) 0, Neutrophils (%) (Auto) 88H, Lymphocytes (%) (Auto) 7L, Monocytes (%) (Auto) 4, Eosinophils (%) (Auto) 0, Basophils (%) (Auto) 0, Neutrophils # (Auto) 8.7H, Lymphocytes # (Auto) 0.7L, Monocytes # (Auto) 0.4, Eosinophils # (Auto) 0.0, Basophils # (Auto) 0.0, Immature Granulocyte # (Auto) 0.0, Neutrophils % (Manual) 81, Lymphocytes % (Manual) 7, Monocytes % (Manual) 3, Band Neutrophils 9, Erythrocyte Sedimentation Rate 14, Prothrombin Time 13.2, INR Comment 1.0, Activated Partial Thromboplast Time 29, D-Dimer 0.33, Sodium Level 135, Potassium Level 4.1, Chloride Level 100, Carbon Dioxide Level 24, Anion Gap 11, Blood Urea Nitrogen 23H, Creatinine 0.93, Estimat Glomerular Filtration Rate 106, BUN/Creatinine Ratio 25, Glucose Level 338H, Lactic Acid Level 2.40*H, Calcium Level 9.5, Corrected Calcium 9.3, Magnesium Level 1.8, Total Bilirubin 0.9, Aspartate Amino Transf (AST/SGOT) 19, Alanine Aminotransferase (ALT/SGPT) 26, Alkaline Phosphatase 84, Total Creatine Kinase 269H, Creatine Kinase MB 2.2, Myoglobin 65.2, Troponin I < 0.028, C-Reactive Protein High Sensitivity 2.52H, B-Type Natriuretic Peptide 17.2, Total Protein 7.9, Albumin 4.3, Amylase Level 36, Lipase 31, Beta-Hydroxybutyrate (Chem panel) 0.19, Serum Alcohol < 10, Influenza Type A (RT-PCR) Not Detected, Influenza Type B (RT-PCR) Not Detected, SARS-CoV-2 RNA (RT-PCR) Not Detected 10/17/22 00:04: Lactic Acid Level 2.04*H 10/17/22 02:05: Lactic Acid Level 1.31 10/17/22 06:36: Glucometer 245H 10/17/22 10:50: Glucometer 268H Microbiology 10/16/22 Blood Culture - Preliminary, Resulted No growth Microbiology 10/16/22 Blood Culture - Preliminary, Resulted No growth 10/16/22 Blood Culture - Preliminary, Resulted No growth Assessment/Plan/Dx Assessment: 1. Recurrent diabetic foot ulcer 3 MTH (healed today) 2. Charcot foot 3. DM2 with poor glycemic control 4. DM2 with peripheral neuropathy 5. Hammer toe deformities 6. Obesity (BMI 42.9) 7. H/o osteomyelitis with amputation Plan: 1. Edith Endave bid with betadine and cover with clean dry sock. Leave adhesive felt relief in place and offload with current measures until follow up with podiatry as outpatient 2. Defer to podiatry 3. Good glycemic control warranted and encouraged. Defer to primary 4. Defer to primary 5. Defer to podiatry 6. Weight loss advised and handouts provided in past. 7. No current signs of osteomyelitis MICHAEL ROQUE MD Oct 17, 2022 15:34
[2022-10-17] MEDS: DOCUSATE SODIUM 100 MG (COLACE) CAP PO SCH (20:26)
[2022-10-17] MEDS: SENNOSIDES 8.6 MG (SENOKOT) TAB PO SCH (20:26)
[2022-10-17] MEDS: ACETAMINOPHEN 500 MG TAB (TYLENOL) PO PRN (20:33)
[2022-10-17] MEDS ORDERED: ACETAMINOPHEN 500 MG TAB (TYLENOL) PO PRN (21:15)
[2022-10-17] MEDS ORDERED: IBUPROFEN TABLET 200 MG TAB PO PRN (21:15)
[2022-10-18 03:13] VITALS: BP 117/76
[2022-10-18] MEDS: CEFEPIME 1,000 MG/NS 50 ML IVPB IV SCH ×2 (04:32)
[2022-10-18] MEDS: inSUlin ASPART (NovoLOG) 1 UNIT/0.01 ML (CHARGE PER UNIT) SC SCH ×4 (05:12→19:57)
[2022-10-18 06:12] LABS: BASOPHILS % (AUTO) 0 % (0-10); EOSINOPHILS # (AUTO) 0.1 10^3/uL (0.0-0.3); EOSINOPHILS % (AUTO) 1 % (0-10); HEMATOCRIT 39 % (40-54); HEMOGLOBIN 13.2 g/dL (13.3-17.7); LYMPHOCYTES # (AUTO) 1.3 10^3/uL (1.0-4.0); LYMPHOCYTES % (AUTO) 26 % (12-44); MEAN CORPUSCULAR HEMOGLOBIN 30 pg (25-34); MEAN CORPUSCULAR HGB CONC 34 g/dL (32-36); MEAN CORPUSCULAR VOLUME 90 fL (80-99); MEAN PLATELET VOLUME 10.8 fL (9.0-12.2); MONOCYTES # (AUTO) 0.4 10^3/uL (0.0-1.0); MONOCYTES % (AUTO) 9 % (0-12); NEUTROPHILS # (AUTO) 3.2 10^3/uL (1.8-7.8); NEUTROPHILS % (AUTO) 64 % (42-75); PLATELET COUNT 124 10^3/uL (130-400)
[2022-10-18 06:23] LABS: SMEAR SCAN COMMENT YES
[2022-10-18 06:34] LABS: CREATININE SERUM 0.67 MG/DL (0.60-1.30)
[2022-10-18 06:35] LABS: ALBUMIN 3.6 GM/DL (3.2-4.5); BILIRUBIN,TOTAL 1.6 MG/DL (0.1-1.0); CALCIUM 8.7 MG/DL (8.5-10.1); TOTAL PROTEIN 6.9 GM/DL (6.4-8.2)
[2022-10-18 06:42] LABS: VANCOMYCIN,TROUGH 11.1 UG/ML (10.0-20.0)
[2022-10-18] MEDS ORDERED: TROUGH ORDER-PHARMACY XX ONE (07:00)
[2022-10-18 07:39] VITALS: BP 118/81
[2022-10-18] MEDS: metFORMIN 500 MG (GLUCOPHAGE) TAB PO SCH ×2 (08:52→18:06)
[2022-10-18] MEDS: ENOXAPARIN 40 MG/0.4 ML (LOVENOX) SYR SC SCH ×2 (08:53→19:57)
[2022-10-18] MEDS: lisINopril 10 MG (PRINIVIL) TABLET PO SCH (08:53)
[2022-10-18] MEDS: HydroCHLOROthiazide CAP/TABLET 12.5 MG TAB PO SCH (08:53)
[2022-10-18] MEDS: SENNOSIDES 8.6 MG (SENOKOT) TAB PO SCH ×2 (08:54→19:57)
[2022-10-18] MEDS: VANCOMYCIN 1500MG/300ML PREMIX IV SCH ×3 (08:54→23:10)
[2022-10-18] MEDS: DOCUSATE SODIUM 100 MG (COLACE) CAP PO SCH ×2 (08:54→19:57)
--- NOTE | 2022-10-18 10:13 | Progress Note - Hospitalist ---
Subjective HPI/CC On Admission Date Seen by Provider: Oct 18, 2022 Time Seen by Provider: 09:00 Chief complaint: Sepsis from UTI and pneumonia HPI: This is a 42-year-old male diabetic who presented to the ER with weakness and fever found to have UTI pneumonia and [id number] diabetes. Home meds will be restarted. Patient appears to be much improved. Hep locking IV fluid discontinue telemetry moving to fourth floor. Subjective/Events-last exam Patient doing a lot better MRSA and blood culture Eating and drinking well Move around really well Review of Systems General: Fatigue, Malaise Focused Exam Lactate Level 10/16/22 22:13: Lactic Acid Level 2.40*H 10/17/22 00:04: Lactic Acid Level 2.04*H 10/17/22 02:05: Lactic Acid Level 1.31 Time of Focused Exam: 23:30 Objective Exam Vital Signs Vital Signs Date Time Temp Pulse Resp B/P (MAP) Pulse Ox O2 Delivery O2 Flow Rate FiO2 10/18/22 20:38 Room Air 10/18/22 19:45 36.7 85 20 115/65 (82) 95 10/18/22 03:13 0.00 0.00 10/17/22 02:00 21 Capillary Refill : Less Than 3 Seconds General Appearance: No Apparent Distress, WD/WN, Chronically ill, Obese Respiratory: Lungs Clear, Normal Breath Sounds Cardiovascular: Regular Rate, Rhythm Neurologic/Psychiatric: Alert, Oriented x3 Results/Procedures Lab Laboratory Tests 10/18/22 05:48 Patient resulted labs reviewed. Assessment/Plan Assessment and Plan Assess & Plan/Chief Complaint Assessment: Sepsis UTI MRSA bacteremia? Pneumonia Diabetes Hypertension Elevated BMI Plan: Supportive care IV antibiotics Hep-Lock IV fluid DC telemetry Moved to fourth floor Clinical Quality Measures AMI/AHF: ASA po Prior to arrival: MARLYN Kimble DO Oct 18, 2022 10:13
[2022-10-18 11:44] VITALS: BP 120/69
[2022-10-18 15:57] VITALS: BP 118/66
[2022-10-18 19:45] VITALS: BP 115/65
[2022-10-18 23:02] VITALS: BP 105/65
[2022-10-18] MEDS: ACETAMINOPHEN 500 MG TAB (TYLENOL) PO PRN (23:24)
[2022-10-19 03:12] VITALS: BP 116/65
--- NOTE | 2022-10-19 05:54 | Progress Note - Hospitalist ---
Subjective HPI/CC On Admission Date Seen by Provider: Oct 19, 2022 Time Seen by Provider: 11:00 Chief complaint: Sepsis from UTI and pneumonia HPI: This is a 42-year-old male diabetic who presented to the ER with weakness and fever found to have UTI pneumonia and uls-il-wkkaprt diabetes. Home meds will be restarted. Patient appears to be much improved. Hep locking IV fluid discontinue telemetry moving to fourth floor. Subjective/Events-last exam Patient doing pretty well MRSA and blood cultures prompting repeat blood cultures No fever Maintain on vancomycin Supportive care continues Review of Systems General: Fatigue, Malaise Focused Exam Lactate Level 10/16/22 22:13: Lactic Acid Level 2.40*H 10/17/22 00:04: Lactic Acid Level 2.04*H 10/17/22 02:05: Lactic Acid Level 1.31 Time of Focused Exam: 23:30 Objective Exam Vital Signs Vital Signs Date Time Temp Pulse Resp B/P (MAP) Pulse Ox O2 Delivery O2 Flow Rate FiO2 10/19/22 20:21 36.8 82 20 112/56 (74) 95 Room Air 10/19/22 03:12 0.00 0.00 10/17/22 02:00 21 Capillary Refill : Less Than 3 Seconds General Appearance: No Apparent Distress, WD/WN, Chronically ill, Obese Respiratory: Lungs Clear, Normal Breath Sounds Cardiovascular: Regular Rate, Rhythm Neurologic/Psychiatric: Alert, Oriented x3, No Motor/Sensory Deficits, Normal Mood/Affect Results/Procedures Lab Laboratory Tests 10/19/22 05:55 Patient resulted labs reviewed. Assessment/Plan Assessment and Plan Assess & Plan/Chief Complaint Assessment: Sepsis UTI MRSA bacteremia? Pneumonia Diabetes Hypertension Elevated BMI Plan: Supportive care IV antibiotics Hep-Lock IV fluid DC telemetry Moved to fourth floor Clinical Quality Measures AMI/AHF: ASA po Prior to arrival: MARLYN Kimble DO Oct 19, 2022 05:54
[2022-10-19] MEDS: inSUlin ASPART (NovoLOG) 1 UNIT/0.01 ML (CHARGE PER UNIT) SC SCH ×4 (06:15→20:34)
[2022-10-19 06:18] LABS: BASOPHILS % (AUTO) 1 % (0-10); EOSINOPHILS # (AUTO) 0.1 10^3/uL (0.0-0.3); EOSINOPHILS % (AUTO) 2 % (0-10); HEMATOCRIT 39 % (40-54); HEMOGLOBIN 13.2 g/dL (13.3-17.7); LYMPHOCYTES # (AUTO) 2.1 10^3/uL (1.0-4.0); LYMPHOCYTES % (AUTO) 41 % (12-44); MEAN CORPUSCULAR HEMOGLOBIN 30 pg (25-34); MEAN CORPUSCULAR HGB CONC 34 g/dL (32-36); MEAN CORPUSCULAR VOLUME 89 fL (80-99); MEAN PLATELET VOLUME 10.9 fL (9.0-12.2); MONOCYTES # (AUTO) 0.6 10^3/uL (0.0-1.0); MONOCYTES % (AUTO) 13 % (0-12); NEUTROPHILS # (AUTO) 2.2 10^3/uL (1.8-7.8); NEUTROPHILS % (AUTO) 44 % (42-75); PLATELET COUNT 142 10^3/uL (130-400); WHITE BLOOD COUNT 5.1 10^3/uL (4.3-11.0)
[2022-10-19 06:46] LABS: ALBUMIN 3.6 GM/DL (3.2-4.5); BILIRUBIN,TOTAL 1.1 MG/DL (0.1-1.0); CALCIUM 8.9 MG/DL (8.5-10.1); CREATININE SERUM 0.68 MG/DL (0.60-1.30); POTASSIUM 3.8 MMOL/L (3.6-5.0)
[2022-10-19] MEDS: VANCOMYCIN 1,750 MG/NS 500 ML IVPB IV SCH ×6 (08:15→23:25)
[2022-10-19] MEDS: lisINopril 10 MG (PRINIVIL) TABLET PO SCH (08:16)
[2022-10-19] MEDS: SENNOSIDES 8.6 MG (SENOKOT) TAB PO SCH ×2 (08:16→20:28)
[2022-10-19] MEDS: HydroCHLOROthiazide CAP/TABLET 12.5 MG TAB PO SCH (08:16)
[2022-10-19] MEDS: metFORMIN 500 MG (GLUCOPHAGE) TAB PO SCH ×2 (08:16→17:19)
[2022-10-19] MEDS: ENOXAPARIN 40 MG/0.4 ML (LOVENOX) SYR SC SCH ×2 (08:16→20:28)
[2022-10-19] MEDS: DOCUSATE SODIUM 100 MG (COLACE) CAP PO SCH ×2 (08:16→20:28)
[2022-10-19 08:20] VITALS: BP 126/74
[2022-10-19 12:10] VITALS: BP 119/72
[2022-10-19 15:44] VITALS: BP 114/67
[2022-10-19 20:21] VITALS: BP 112/56
[2022-10-19 23:37] VITALS: BP 115/71
[2022-10-20 03:27] VITALS: BP 132/67
[2022-10-20 05:58] LABS: BASOPHILS % (AUTO) 1 % (0-10); EOSINOPHILS # (AUTO) 0.1 10^3/uL (0.0-0.3); EOSINOPHILS % (AUTO) 2 % (0-10); HEMATOCRIT 39 % (40-54); HEMOGLOBIN 13.3 g/dL (13.3-17.7); LYMPHOCYTES # (AUTO) 2.6 10^3/uL (1.0-4.0); LYMPHOCYTES % (AUTO) 42 % (12-44); MEAN CORPUSCULAR HEMOGLOBIN 30 pg (25-34); MEAN CORPUSCULAR HGB CONC 34 g/dL (32-36); MEAN CORPUSCULAR VOLUME 88 fL (80-99); MEAN PLATELET VOLUME 10.8 fL (9.0-12.2); MONOCYTES # (AUTO) 0.7 10^3/uL (0.0-1.0); MONOCYTES % (AUTO) 10 % (0-12); NEUTROPHILS # (AUTO) 2.8 10^3/uL (1.8-7.8); NEUTROPHILS % (AUTO) 44 % (42-75); PLATELET COUNT 182 10^3/uL (130-400); WHITE BLOOD COUNT 6.3 10^3/uL (4.3-11.0)
[2022-10-20 06:09] LABS: ALBUMIN 3.8 GM/DL (3.2-4.5); POTASSIUM 3.8 MMOL/L (3.6-5.0)
[2022-10-20] MEDS: inSUlin ASPART (NovoLOG) 1 UNIT/0.01 ML (CHARGE PER UNIT) SC SCH ×2 (06:09→11:23)
--- NOTE | 2022-10-20 06:09 | Progress Note - Hospitalist ---
Subjective HPI/CC On Admission Date Seen by Provider: Oct 20, 2022 Time Seen by Provider: 11:00 Chief complaint: Sepsis from UTI and pneumonia HPI: This is a 42-year-old male diabetic who presented to the ER with weakness and fever found to have UTI pneumonia and jzy-no-[id number] diabetes. Home meds will be restarted. Patient appears to be much improved. Hep locking IV fluid discontinue telemetry moving to fourth floor. Focused Exam Time of Focused Exam: 23:30 Objective Exam Vital Signs Vital Signs Date Time Temp Pulse Resp B/P (MAP) Pulse Ox O2 Delivery O2 Flow Rate FiO2 10/20/22 16:00 10/20/22 11:59 36.1 91 20 97 Room Air 10/19/22 03:12 0.00 0.00 10/17/22 02:00 21 Capillary Refill : Less Than 3 Seconds Results/Procedures Lab Laboratory Tests 10/20/22 05:30 Patient resulted labs reviewed. Assessment/Plan Assessment and Plan Assess & Plan/Chief Complaint Assessment: Sepsis UTI MRSA bacteremia? Pneumonia Diabetes Hypertension Elevated BMI Plan: Supportive care IV antibiotics Hep-Lock IV fluid DC telemetry Moved to fourth floor Clinical Quality Measures AMI/AHF: ASA po Prior to arrival: MARLYN Kimble DO Oct 20, 2022 06:09
[2022-10-20 06:10] LABS: CALCIUM 9.2 MG/DL (8.5-10.1)
[2022-10-20 06:11] LABS: TOTAL PROTEIN 7.1 GM/DL (6.4-8.2)
[2022-10-20 06:13] LABS: BILIRUBIN,TOTAL 1.4 MG/DL (0.1-1.0)
[2022-10-20 06:14] VITALS: BP 132/67
[2022-10-20 06:15] LABS: CREATININE SERUM 0.71 MG/DL (0.60-1.30)
[2022-10-20 06:25] LABS: VANCOMYCIN,TROUGH 18.1 UG/ML (10.0-20.0)
[2022-10-20] MEDS: VANCOMYCIN 1,750 MG/NS 500 ML IVPB IV SCH ×2 (06:29)
[2022-10-20] MEDS ORDERED: TROUGH ORDER-PHARMACY XX ONE (07:00)
[2022-10-20 07:33] VITALS: BP 134/84
[2022-10-20] MEDS: lisINopril 10 MG (PRINIVIL) TABLET PO SCH (07:39)
[2022-10-20] MEDS: metFORMIN 500 MG (GLUCOPHAGE) TAB PO SCH (07:39)
[2022-10-20] MEDS: ENOXAPARIN 40 MG/0.4 ML (LOVENOX) SYR SC SCH (07:39)
[2022-10-20] MEDS: SENNOSIDES 8.6 MG (SENOKOT) TAB PO SCH (07:39)
[2022-10-20] MEDS: HydroCHLOROthiazide CAP/TABLET 12.5 MG TAB PO SCH (07:39)
[2022-10-20] MEDS: DOCUSATE SODIUM 100 MG (COLACE) CAP PO SCH (07:39)
[2022-10-20] MEDS: ACETAMINOPHEN 500 MG TAB (TYLENOL) PO PRN (07:39)
[2022-10-20 11:59] VITALS: BP 125/77
[2022-10-20] MEDS ORDERED: DAPT500V18 IV (12:06)
[2022-10-20] MEDS ORDERED: GLYB1.253 PO (12:12)
--- NOTE | 2022-10-20 12:13 | Discharge Summary ---
Discharge Summary Hospital Course Was the Problem List Reviewed?: Yes Problems/Dx: (1) Diabetic ulcer of right foot Status: Acute (2) Uncontrolled hypertension Status: Acute (3) Uncontrolled diabetes mellitus Status: Acute Hospital Course Date of Admission: Oct 17, 2022 at 00:40 Admission Diagnosis : Family Physician/Provider: Shital Rios Aprn Date of Discharge: 10/20/22 Discharge Diagnosis: [ ] Hospital Course: Patient had an uneventful hospital course after he was admitted for pneumonia and UTI placed on broad-spectrum antibiotics and blood culture showed MRSA. Repeat blood cultures were negative but patient had midline placed on daptomycin will be initiated to finish out that treatment plan and he was discharged in improved condition. Labs and Pending Lab Test: Laboratory Tests 10/19/22 15:30: Glucometer 173H 10/19/22 20:32: Glucometer 155H 10/20/22 05:29: Glucometer 228H 10/20/22 05:30: White Blood Count 6.3, Red Blood Count 4.46, Hemoglobin 13.3, Hematocrit 39L, Mean Corpuscular Volume 88, Mean Corpuscular Hemoglobin 30, Mean Corpuscular Hemoglobin Concent 34, Red Cell Distribution Width 13.8, Platelet Count 182, Mean Platelet Volume 10.8, Immature Granulocyte % (Auto) 1, Neutrophils (%) (Auto) 44, Lymphocytes (%) (Auto) 42, Monocytes (%) (Auto) 10, Eosinophils (%) (Auto) 2, Basophils (%) (Auto) 1, Neutrophils # (Auto) 2.8, Lymphocytes # (Auto) 2.6, Monocytes # (Auto) 0.7, Eosinophils # (Auto) 0.1, Basophils # (Auto) 0.0, Immature Granulocyte # (Auto) 0.1, Sodium Level 134L, Potassium Level 3.8, Chloride Level 104, Carbon Dioxide Level 20L, Anion Gap 10, Blood Urea Nitrogen 11, Creatinine 0.71, Estimat Glomerular Filtration Rate 118, BUN/Creatinine Ratio 15, Glucose Level 212H, Calcium Level 9.2, Corrected Calcium 9.4, Total Bilirubin 1.4H, Aspartate Amino Transf (AST/SGOT) 42H, Alanine Aminotransferase (ALT/SGPT) 58H, Alkaline Phosphatase 46, Total Protein 7.1, Albumin 3.8, Vancomycin Level Trough 18.1 6/29/23 10:18: Glucometer 220H Microbiology 10/16/22 Blood Culture - Preliminary, Resulted Staphylococcus aureus 10/16/22 Urine Culture - Final, Complete NO GROWTH Home Meds Active Glyburide 1.25 Mg Tablet 1.25 Mg PO DAILY Daptomycin 500 Mg Vial 1,000 Mg IV DAILY 10 Days Reported Tylenol Extra Strength (Acetaminophen) 500 Mg Tablet 1,000 Mg PO Q8H PRN TAKES 2 (500MG) TABS Ibuprofen 200 Mg Tablet 400 Mg PO Q8H PRN TAKES 2 (200MG) TABS Lisinopril-Hctz 10-12.5 mg Tab (Lisinopril/Hydrochlorothiazide) 10 Mg-12.5 Mg Tablet 1 Each PO DAILY Metformin HCl 1,000 Mg Tablet 1,000 Mg PO BID Assessment/Pt Instructions PCP in 1 week Discharge Planning: <30 minutes discharge planning Discharge Instructions Discharge Diet: ADA Diet Discharge Physical Examination Vital Signs Vital Signs Date Time Temp Pulse Resp B/P (MAP) Pulse Ox O2 Delivery O2 Flow Rate FiO2 10/20/22 11:59 36.1 91 20 125/77 (93) 97 Room Air 10/19/22 03:12 0.00 0.00 10/17/22 02:00 21 General Appearance: No Apparent Distress, WD/WN, Chronically ill Allergies: Coded Allergies: amoxicillin (Verified Allergy, Unknown, 07/12/21) Discharge Summary Date of Admission Oct 17, 2022 at 00:40 Date of Discharge Discharge Date: Oct 20, 2022 Admission Diagnosis Assessment: Sepsis UTI Pneumonia Diabetes Hypertension Elevated BMI Plan: Supportive care IV antibiotics Hep-Lock IV fluid DC telemetry Moved to fourth floor Discharge Diagnosis Assessment: Sepsis UTI MRSA bacteremia? Pneumonia Diabetes Hypertension Elevated BMI Plan: Supportive care IV antibiotics Hep-Lock IV fluid DC telemetry Moved to fourth floor Clinical Quality Measures AMI/AHF: ASA po Prior to arrival: MARLYN Kimble DO Oct 20, 2022 12:13
[2022-10-20] MEDS ORDERED: DAPTOMYCIN IV SCH (13:00)
[2022-10-20] MEDS ORDERED: NS IV SCH (13:00)
== END 2022-10-20 16:08 | disposition home or self-care (01) | DRG 871 ==
LOC: EDUNIT# 21:56 → ER 22:00 → CSD 10-17 00:40 → 4TH 10-17 13:36
PROVIDERS: ADMIT Internal Medicine; ATTEND Internal Medicine
DX: A41.02 Sepsis due to Methicillin resistant Staphylococcus aureus (principal); J18.9 Pneumonia, unspecified organism; N39.0 Urinary tract infection, site not specified; Z68.41 Body mass index [BMI] 40.0-44.9, adult; E11.621 Type 2 diabetes mellitus with foot ulcer; L97.519 Non-pressure chronic ulcer of other part of right foot with unspecified severity; E11.610 Type 2 diabetes mellitus with diabetic neuropathic arthropathy; E11.42 Type 2 diabetes mellitus with diabetic polyneuropathy; Z79.84 Long term (current) use of oral hypoglycemic drugs; Z20.822 Contact with and (suspected) exposure to COVID-19; E66.9 Obesity, unspecified; E11.65 Type 2 diabetes mellitus with hyperglycemia; I10 Essential (primary) hypertension; J45.909 Unspecified asthma, uncomplicated; Z89.421 Acquired absence of other right toe(s); Z88.1 Allergy status to other antibiotic agents
CPT/HCPCS: 36410; 36415; 71045; 73562; 73630; 76937; 80053; 80202; 80306; 80320; 81000; 82010; 82150; 82550; 82553; 82947; 83036; 83605; 83690; 83735; 83874; 83880; 84484; 85007; 85025; 85027; 85379; 85610; 85652; 85730; 86141; 87040; 87077; 87088; 87186; 87636; 93005; 93041; 94664

== ENCOUNTER → 2022-10-21 | Outpatient (RCR) | payer OTHER ==
[~2022-10-21] VITALS: Ht 190.5 cm; Wt 157.4 kg
[~2022-10-21] MED LIST changes: +ACET-2267 PO; +DAPT500V18 IV; +DAPTOMYCIN IV SCH; +GLYB1.253 PO; +IBUP-2473 PO; +LISI1TAB44 PO; +METF-399 PO; +NS IV SCH
[2022-10-21 10:00] VITALS: BP 134/92
== END ==
LOC: SDC 09:46
PROVIDERS: ATTEND Internal Medicine
DX: Z51.81 Encounter for therapeutic drug level monitoring (principal)
CPT/HCPCS: 96365

== ENCOUNTER 2022-10-29 08:43 | Outpatient (RCR) | payer OTHER ==
[2022-10-22 08:59] VITALS: BP 124/89
[2022-10-22] MEDS: NS IV SCH (09:12)
[2022-10-22] MEDS: DAPTOMYCIN IV SCH (09:12)
[2022-10-22 09:13] VITALS: BP 124/89
[2022-10-23 08:27] VITALS: BP 124/89
[2022-10-23] MEDS: DAPTOMYCIN IV SCH (09:08)
[2022-10-23] MEDS: NS IV SCH (09:08)
[2022-10-24 08:25] VITALS: BP 136/89
[2022-10-24] MEDS: DAPTOMYCIN IV SCH (09:00)
[2022-10-24] MEDS: NS IV SCH (09:00)
[2022-10-25 08:22] VITALS: BP 111/63
[2022-10-25] MEDS: DAPTOMYCIN IV SCH (08:42)
[2022-10-25] MEDS: NS IV SCH (08:42)
[2022-10-26 08:30] VITALS: BP 140/87
[2022-10-26] MEDS: DAPTOMYCIN IV SCH (09:42)
[2022-10-26] MEDS: NS IV SCH (09:42)
[2022-10-27] MEDS: DAPTOMYCIN IV SCH (09:23)
[2022-10-27] MEDS: NS IV SCH (09:23)
[2022-10-27 09:48] VITALS: BP 149/88
[2022-10-28] MEDS: NS IV SCH (09:20)
[2022-10-28] MEDS: DAPTOMYCIN IV SCH (09:20)
[2022-10-28 09:21] VITALS: BP 149/88
[~2022-10-29] VITALS: Wt 157.4 kg
[~2022-10-29 08:43] MED LIST changes: -DAPTOMYCIN IV SCH; -NS IV SCH
[2022-10-29 09:04] VITALS: BP 125/80
[2022-10-29] MEDS: NS IV SCH (09:28)
[2022-10-29] MEDS: DAPTOMYCIN IV SCH (09:28)
== END 2022-11-21 | disposition home or self-care (01) ==
LOC: SDC 08:43
PROVIDERS: ATTEND Internal Medicine
DX: Z01.89 Encounter for other specified special examinations (principal)
CPT/HCPCS: 96365; 99211

== ENCOUNTER 2022-12-25 18:14 | Emergency (ER) | payer OTHER ==
[~2022-12-25] VITALS: Ht 160 cm; Wt 158.0 kg
[2022-12-25] MEDS ORDERED: CLINDAMYCIN 150 MG CAPSULE PO STA (19:09)
--- NOTE | 2022-12-25 19:12 | ED Integumentary General ---
General Chief Complaint: Skin/Wound Problems Stated Complaint: INFECTED FOOT Nursing Triage Note: ULCER STARTED ABOUT A MONTH WITH INFECTION APPEARING YESTERDAY Source: patient Exam Limitations: no limitations (ANMOL PORRAS) History of Present Illness Date Seen by Provider: Dec 25, 2022 Time Seen by Provider: 19:10 Initial Comments Patient is a 42-year-old male who presents ED with an ulcer to his left plantar foot. Chronic ulcer currently sees inclined railway operator Dr. Hernandez in [place]. Reports weekly visits. Noted some swelling localized redness and purulent drainage from the plantar ulcer that started yesterday. Mild pain with walking. Denies fever, chills, nausea, vomit, diarrhea or erythematous streaking. 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 Does have an ulcer to his right f oot but denies of any pain. (ANMOL PORRAS) Allergies and Home Medications Allergies Coded Allergies: amoxicillin (Verified Allergy, Unknown, 07/12/21) Patient Home Medication List Home Medication List Reviewed: Yes (ANMOL PORRAS) Acetaminophen (Tylenol Extra Strength) 500 Mg Tablet, 1,000 MG PO Q8H PRN for PAIN-MILD (1-4), (Reported) Entered as Reported by: JOCELYNE AMADO on 10/17/22 1433 Clindamycin HCl (Clindamycin HCl) 300 Mg Capsule, 300 MG PO QID Prescribed by: JL GOODRICH on 12/26/22 1536 Last Action: New Order Daptomycin (Daptomycin) 500 Mg Vial, 1,000 MG IV DAILY Prescribed by: MARLYN NIETO on 10/20/22 1206 Glyburide (Glyburide) 1.25 Mg Tablet, 1.25 MG PO DAILY Prescribed by: MARLYN NIETO on 10/20/22 1212 Ibuprofen (Ibuprofen) 200 Mg Tablet, 400 MG PO Q8H PRN for PAIN-MILD (1-4), (Reported) Entered as Reported by: JOCELYNE AMADO on 10/17/22 1432 Lisinopril/Hydrochlorothiazide (Lisinopril-Hctz 10-12.5 mg Tab) 10 Mg-12.5 Mg Ta blet, 1 EACH PO DAILY, (Reported) Entered as Reported by: JOCELYNE AMADO on 10/17/22 1432 Metformin HCl (Metformin HCl) 1,000 Mg Tablet, 1,000 MG PO BID, (Reported) Entered as Reported by: JOCELYNE AMADO on 10/17/22 1431 Discontinued Medications Clindamycin HCl (Clindamycin HCl) 300 Mg Capsule, 300 MG PO QID Prescribed by: RICHAR GUTIERREZ on 12/25/222116 Last Action: Discontinued Clindamycin HCl (Clindamycin HCl) 300 Mg Capsule, 300 MG PO QID Prescribed by: JL GOODRICH on 12/26/22 1536 Last Action: Discontinued Review of Systems Review of Systems Constitutional: No chills, No diaphoresis EENTM: No ear pain, No blurred vision, No double vision Respiratory: No cough, No dyspnea on exertion Cardiovascular: No chest pain Gastrointestinal: No abdominal pain, No diarrhea, No nausea, No vomiting Genitourinary: No decreased output, No discharge Musculoskeletal: No back pain, No joint pain Skin: change in color Psychiatric/Neurological: Denies Anxiety, Denies Depressed (ANMOL PORRAS) All Other Systems Reviewed Negative Unless Noted: Yes (ANMOL PORRAS) Past Xpefspg-Hnvrgz-Azbnwk Hx Patient Social History Tobacco Use?: No Substance use?: No Alcohol Use?: No Pt feels they are or have been: No (ANMOL PORRAS) Past Medical History Surgery/Hospitalization HX: iddm, htn, asthma, right toe amputation, right knee Surgeries: Yes (R 2ND toe removal from osteomyelitis; RIGHT KNEE SCOPE; INGROWN TOENAILS) Orthopedic Respiratory: Yes Asthma Cardiac: Yes Hypertension Neurological: No Genitourinary: No Gastrointestinal: No Musculoskeletal: Yes (OSTEOMYELITIS WITH AMPUTATION OF R 2ND TOE;R KNEE SCOPE) Amputee Endocrine: Yes (OBESITY) Diabetes, Non-Insulin dep HEENT: No Cancer: No Psychosocial: No Integumentary: Yes (CHRONIC DIABETIC FOOT ULCER, OSTEOMYELITIS) Blood Disorders: No (ANMOL PORRAS) Physical Exam Vital Signs Vital Signs - First Documented 12/25/22 12/25/22 18:44 21:25 Temp 36.8 Pulse 109 Resp 22 B/P (MAP) 176/114 (134) Pulse Ox 99 O2 Delivery OxyMask (JUAN SPENCER MD) Vital Signs Capillary Refill : Less Than 3 Seconds (ANMOL PORRAS) General Appearance: WD/WN, no apparent distress HEENT: PERRL/EOMI, normal ENT inspection, TMs normal, pharynx normal Neck: non-tender, full range of motion, supple Cardiovascular: regular rate, rhythm, no edema, no gallop, no JVD Respiratory: chest non-tender, lungs clear, normal breath sounds, no respiratory distress Gastrointestinal: normal bowel sounds, non tender, soft, no organomegaly Back: normal inspection, no CVA tenderness Extremities: other (Normal active range of motion of the digits of the left foot. No surrounding swelling or erythema of the left dorsum foot. Neurovascular intact. 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 Localized swelling and erythema. No erythematous streaking. No tenderness to palpate) Skin Problem Character: other (Ulcer to left plantar foot with purulent drainage.) (ANMOL PORRAS) Progress/Results/Core Measures Results/Orders Lab Results Laboratory Tests Test 12/25/22 20:14 Range/Units White Blood Count 14.6 H 4.3-11.0 10^3/uL Red Blood Count 4.58 4.30-5.52 10^6/uL Hemoglobin 13.8 13.3-17.7 g/dL Hematocrit 41 40-54 % Mean Corpuscular Volume 90 80-99 fL Mean Corpuscular Hemoglobin 30 25-34 pg Mean Corpuscular Hemoglobin Concent 34 32-36 g/dL Red Cell Distribution Width 13.7 10.0-14.5 % Platelet Count 186 130-400 10^3/uL Mean Platelet Volume 10.5 9.0-12.2 fL Immature Granulocyte % (Auto) 1 % Neutrophils (%) (Auto) 72 42-75 % Lymphocytes (%) (Auto) 19 12-44 % Monocytes (%) (Auto) 8 0-12 % Eosinophils (%) (Auto) 1 0-10 % Basophils (%) (Auto) 0 0-10 % Neutrophils # (Auto) 10.4 H 1.8-7.8 10^3/uL Lymphocytes # (Auto) 2.7 1.0-4.0 10^3/uL Monocytes # (Auto) 1.2 H 0.0-1.0 10^3/uL Eosinophils # (Auto) 0.1 0.0-0.3 10^3/uL Basophils # (Auto) 0.1 0.0-0.1 10^3/uL Immature Granulocyte # (Auto) 0.1 0.0-0.1 10^3/uL Erythrocyte Sedimentation Rate 18 H 0-15 MM/HR Sodium Level 132 L 135-145 MMOL/L Potassium Level 3.8 3.6-5.0 MMOL/L Chloride Level 102 98-107 MMOL/L Carbon Dioxide Level 18 L 21-32 MMOL/L Anion Gap 12 5-14 MMOL/L Blood Urea Nitrogen 19 H 7-18 MG/DL Creatinine 0.81 0.60-1.30 MG/DL Estimat Glomerular Filtration Rate 114 BUN/Creatinine Ratio 23 Glucose Level 308 H 70-105 MG/DL Lactic Acid Level 2.22 *H 0.50-2.00 MMOL/L Calcium Level 9.1 8.5-10.1 MG/DL Corrected Calcium 9.1 8.5-10.1 MG/DL Total Bilirubin 1.2 H 0.1-1.0 MG/DL Aspartate Amino Transf (AST/SGOT) 15 5-34 U/L Alanine Aminotransferase (ALT/SGPT) 23 0-55 U/L Alkaline Phosphatase 67 40-136 U/L C-Reactive Protein High Sensitivity 5.00 H 0.00-0.50 MG/DL Total Protein 7.6 6.4-8.2 GM/DL Albumin 4.0 3.2-4.5 GM/DL (JUAN SPENCER MD) Micro Results Microbiology 12/25/22 Blood Culture - Preliminary, Resulted No growth 12/25/22 Blood Culture - Preliminary, Resulted No growth (JUAN SPENCER MD) Vital Signs/I&O 12/25/22 12/25/22 18:44 21:25 Temp 36.8 36.3 Pulse 109 86 Resp 22 16 B/P (MAP) 176/114 (134) 133/79 Pulse Ox 99 O2 Delivery OxyMask Room Air (JUAN SPENCER MD) Blood Pressure Mean: 134 Departure Communication (PCP) Patient with a diabetic ulcer to left plantar foot. Ulcer started about a month and a half ago. history of ulcer to right foot. Currently following up with podiatry in [place]. He reports weekly debridement. Increased localized redness and swelling to the left plantar foot over the past two days. No fever chills body aches or erythematous streaking. On exam he has no erythematous streaking. Localized swelling on the plantar side with mild erythema. Does have a nickel sized ulcer. Small amount of purulent drainage. Made a small incision to allow drainage. X-ray was performed which did not show any bony destruction. Patient was slightly tachycardic but afebrile. Obtain lab work. White blood count 14.6. ESR 18, sodium 132, normal anion gap, blood sugar 302, lactic acid 2.22, CRP of 5. Patient initially received oral clindamycin. Patient did meet SIRS criteria with a tachycardia and elevated white blood count. Due to elevated lactic acid which could be secondary to infection versus dehydration suggest starting a line and a liter of fluid with IV antibiotics. Patient did not want to proceed at this time. I did consult Dr. Awad general surgeon regarding the ulcer if this would be something he recommend admitting for surgical debridement. He evaluated patient here in the ED. States this appears to be fairly superficial and recommended oral antibiotics at this time and to follow-up with him in the next 1 to 2 weeks. Discussed with patient admission with IV fluids and IV antibiotics. He would rather be discharged at this time with oral antibiotics. General surgery recommended oral clindamycin which I will prescribe. I Was not able to obtain a second lactic acid as patient was wanting to leave. Suggest drinking plenty of fluids and staying hydrated. Continue monitoring your blood sugar. Follow-up your inclined railway operator on Monday. If any worsening symptoms such as fever, chills, redness or swelling to return back to ED. discussed wound care. Patient with a similar type ulcer to his right foot currently being managed by podiatry. Denies of any pain to this location. No active drainage (ANMOL PORRAS) Impression Primary Impression: Ulcer of left foot Disposition: 01 HOME, SELF-CARE Condition: Stable Departure-Patient Inst. Decision time for Depature: 19:12 (ANMOL PORRAS) Referrals: KEN COREY APRN (PCP/Family) Primary Care Physician Patient Instructions: Diabetic Foot Ulcer (DC) Add. Discharge Instructions: If increasing pain, swelling, fever, chills to return back to ED. Follow-up with your inclined railway operator on Monday. Continue with wound care. All discharge instructions reviewed with patient and/or family. Voiced under standing. Scripts Clindamycin HCl (Clindamycin HCl) 300 Mg Capsule 300 MG PO QID for 7 Days, #28 CAP Prov: JL GOODRICH MD 12/26/22 ATTENDING PHYSICIAN NOTE: I was physically present as attending physician in the emergency department during the care of this patient, but I was not directly involved in the decision making or delivery of care for this patient. (JUAN SPENCER MD) ANMOL PORRAS Dec 25, 2022 19:12 JUAN SPENCER MD Dec 29, 2022 10:20
[2022-12-25] MEDS ORDERED: LIDOCAINE 1% INJ 10 ML VIAL INJ ONE (19:15)
--- NOTE | 2022-12-25 19:48 | Diagnostic Imaging Report ---
INDICATION: Left foot pain, soft tissue ulcer. COMPARISON: None. FINDINGS: Three views of the left foot demonstrate no acute fracture or dislocation. There is no focal osseous lesion. There is no soft tissue swelling. Joint spaces are well maintained. No radiopaque foreign body is seen. IMPRESSION: No acute fracture or dislocation of the left foot. Dictated by: Dictated on workstation # [id number]
[2022-12-25 20:34] LABS: BASOPHILS # (AUTO) 0.1 10^3/uL (0.0-0.1); BASOPHILS % (AUTO) 0 % (0-10); EOSINOPHILS # (AUTO) 0.1 10^3/uL (0.0-0.3); EOSINOPHILS % (AUTO) 1 % (0-10); HEMATOCRIT 41 % (40-54); HEMOGLOBIN 13.8 g/dL (13.3-17.7); LYMPHOCYTES # (AUTO) 2.7 10^3/uL (1.0-4.0); LYMPHOCYTES % (AUTO) 19 % (12-44); MEAN CORPUSCULAR HEMOGLOBIN 30 pg (25-34); MEAN CORPUSCULAR HGB CONC 34 g/dL (32-36); MEAN CORPUSCULAR VOLUME 90 fL (80-99); MEAN PLATELET VOLUME 10.5 fL (9.0-12.2); MONOCYTES # (AUTO) 1.2 10^3/uL (0.0-1.0); MONOCYTES % (AUTO) 8 % (0-12); NEUTROPHILS # (AUTO) 10.4 10^3/uL (1.8-7.8); NEUTROPHILS % (AUTO) 72 % (42-75); PLATELET COUNT 186 10^3/uL (130-400); WHITE BLOOD COUNT 14.6 10^3/uL (4.3-11.0)
[2022-12-25 20:52] LABS: BILIRUBIN,TOTAL 1.2 MG/DL (0.1-1.0); CALCIUM 9.1 MG/DL (8.5-10.1); CREATININE SERUM 0.81 MG/DL (0.60-1.30); POTASSIUM 3.8 MMOL/L (3.6-5.0); TOTAL PROTEIN 7.6 GM/DL (6.4-8.2)
--- NOTE | 2022-12-25 20:58 | Consultation - Surgery ---
LEXI CLAYIRE 12/25/222057: History of Present Illness History of Present Illness Patient Consulted On(deandre/time) 12/25/22 20:48 Date Seen by Provider: Dec 25, 2022 Time Seen by Provider: 20:48 Reason for Visit: Left foot ulcer History of Present Illness Pt is a 42 y/o male presenting with a left foot ulcer that he has had for 1.5 years that has worsened in the past month. Yesterday he noticed that the ulcer had gotten inflamed and was now painful- rating a 4-5/10 so he presented to the ER. Reports a burning, achy pain quality. He noted some mild serosanguanous drainage this afternoon. Standing on his feet makes sxs worse. Reports that he has a R foot ulcer as well and he has a past hx of a toe amputation on the R side. Followed by podiatry every week for callus scraping. Denies fever. Notes some mild tenderness to L waters that started yesterday but he states he may have bumped something while working. Denies streaks in the wound. Pt has T2DM with last A1c of 9. Consult requested by Antonio Cardenas. Allergies and Home Medications Allergies Coded Allergies: amoxicillin (Verified Allergy, Unknown, 07/12/21) Patient Home Medication List Home Medication List Reviewed: Yes Acetaminophen (Tylenol Extra Strength) 500 Mg Tablet, 1,000 MG PO Q8H PRN for PAIN-MILD (1-4), (Reported) Entered as Reported by: JOCELYNE AMADO on 10/17/22 1433 Clindamycin HCl (Clindamycin HCl) 300 Mg Capsule, 300 MG PO QID Prescribed by: JL GOODRICH on 12/26/22 1536 Last Action: New Order Daptomycin (Daptomycin) 500 Mg Vial, 1,000 MG IV DAILY Prescribed by: MARLYN NIETO on 10/20/22 1206 Glyburide (Glyburide) 1.25 Mg Tablet, 1.25 MG PO DAILY Prescribed by: MARLYN NIETO on 10/20/22 1212 Ibuprofen (Ibuprofen) 200 Mg Tablet, 400 MG PO Q8H PRN for PAIN-MILD (1-4), (Reported) Entered as Reported by: JOCELYNE AMADO on 10/17/22 1432 Lisinopril/Hydrochlorothiazide (Lisinopril-Hctz 10-12.5 mg Tab) 10 Mg-12.5 Mg Tablet, 1 EACH PO DAILY, (Reported) Entered as Reported by: JOCELYNE AMADO on 10/17/22 1432 Metformin HCl (Metformin HCl) 1,000 Mg Tablet, 1,000 MG PO BID, (Reported) Entered as Reported by: JOCELYNE AMADO on 10/17/22 1431 Discontinued Medications Clindamycin HCl (Clindamycin HCl) 300 Mg Capsule, 300 MG PO QID Prescribed by: RICHAR GUTIERREZ on 12/25/222116 Last Action: Discontinued Clindamycin HCl (Clindamycin HCl) 300 Mg Capsule, 300 MG PO QID Prescribed by: JL GOODRICH on 12/26/22 153 Last Action: Discontinued Past Siysmbp-Rmfjrn-Rwartp Hx Patient Social History Smoking Status: Never a Smoker Alcohol Use?: No Surgeries History of Surgeries: Yes (R 2ND toe removal from osteomyelitis; RIGHT KNEE SCOPE; INGROWN TOENAILS) Surgeries: Orthopedic (R toe amputation) Respiratory History of Respiratory Disorde: Yes Respiratory Disorders: Asthma Cardiovascular History of Cardiac Disorders: Yes Cardiac Disorders: Hypertension Neurological History of Neurological Disord: No Genitourinary History of Genitourinary Disor: No Gastrointestinal History of Gastrointestinal Di: No Musculoskeletal History of Musculoskeletal Dis: Yes (OSTEOMYELITIS WITH AMPUTATION OF R 2ND TOE;R KNEE SCOPE) Musculoskeletal Disorders: Amputee Endocrine History of Endocrine Disorders: Yes (OBESITY) Endocrine Disorders: Diabetes, Non-Insulin dep HEENT History of HEENT Disorders: No Cancer History of Cancer: No Psychosocial History of Psychiatric Problem: No Integumentary History of Skin or Integumenta: Yes (CHRONIC DIABETIC FOOT ULCER, OSTEOMYELITIS) Blood Transfusions History of Blood Disorders: No Review of Systems-General Constitutional: No chills, No fever EENTM: No blurred vision, No double vision Respiratory: No cough, No short of breath Cardiovascular: No chest pain, No palpitations Gastrointestinal: No abdominal pain, No diarrhea Genitourinary: No decreased output, No discharge Musculoskeletal: joint pain, other (Bilateral foot ulcers.) Skin: change in color, lesions (2.5 cm callus with center ulceration on L foot ) Psychiatric/Neurological: Denies Anxiety, Denies Depressed Physical Exam-General Problems Physical Exam Vital Signs Vital Signs - First Documented 12/25/22 18:44 Temp 36.8 Pulse 109 Resp 22 B/P (MAP) 176/114 (134) O2 Delivery OxyMask Capillary Refill : Less Than 3 Seconds General Appearance: WD/WN, no apparent distress HEENT: PERRL/EOMI, normal ENT inspection Neck: non-tender, normal inspection Respiratory: no respiratory distress, no accessory muscle use Cardiovascular: normal peripheral pulses, regular rate, rhythm Peripheral Pulses: 2+ Dorsalis Pedis (R), 2+ Left Dors-Pedis (L) Gastrointestinal: non tender, soft Back: normal inspection, no vertebral tenderness Extremities: normal range of motion, normal capillary refill Neurologic/Psychiatric: alert, normal mood/affect, oriented x 3 Skin: warm/dry, other (2.5 cm callus with central ulceration on L foot. Minimal serosangunious drainage. 2.5 cm callus on R foot without any ulceration) Lymphatic: no adenopathy Data Review Labs Laboratory Tests 12/25/22 20:14: White Blood Count 14.6H, Red Blood Count 4.58, Hemoglobin 13.8, Hematocrit 41, Mean Corpuscular Volume 90, Mean Corpuscular Hemoglobin 30, Mean Corpuscular Hemoglobin Concent 34, Red Cell Distribution Width 13.7, Platelet Count 186, Mean Platelet Volume 10.5, Immature Granulocyte % (Auto) 1, Neutrophils (%) (Auto) 72, Lymphocytes (%) (Auto) 19, Monocytes (%) (Auto) 8, Eosinophils (%) (Auto) 1, Basophils (%) (Auto) 0, Neutrophils # (Auto) 10.4H, Lymphocytes # (Auto) 2.7, Monocytes # (Auto) 1.2H, Eosinophils # (Auto) 0.1, Basophils # (Auto) 0.1, Immature Granulocyte # (Auto) 0.1 Assessment/Plan Assessment/Plan Assessment/Plan L foot ulcer. Hx of R toe amputation Diabetes X-ray today of L foot w/o any abnormalities Start clindamycin Follow up in clinic in 1-2 weeks. May surgically debride at that time Get sugars under control and potentially see a dietitian. Last A1c was 9. MILDRED ACOSTA DO 12/26/22 7522: History of Present Illness History of Present Illness History of Present Illness Seen and evaluated in ED. Patient is a 42 year old male with diabetes and has had ulcers on b/l feet. They have been present about 1.5 years. Left foot worsening over last month. Has been following with podiatry in [place]. More inflamed and achy/burning pain. 08/01. Slight serous appearing drainage. Standing makes worse. Nothing makes better. Hgb A1c he reports elevated but better than it used to be. Allergies and Home Medications Allergies Coded Allergies: amoxicillin (Verified Allergy, Unknown, 07/12/21) Patient Home Medication List Home Medication List Reviewed: Yes Acetaminophen (Tylenol Extra Strength) 500 Mg Tablet, 1,000 MG PO Q8H PRN for PAIN-MILD (1-4), (Reported) Entered as Reported by: JOCELYNE AMADO on 10/17/22 1433 Clindamycin HCl (Clindamycin HCl) 300 Mg Capsule, 300 MG PO QID Prescribed by: JL GOODRICH on 12/26/221535 Last Action: New Order Daptomycin (Daptomycin) 500 Mg Vial, 1,000 MG IV DAILY Prescribed by: MARLYN NIETO on 10/20/22 1206 Glyburide (Glyburide) 1.25 Mg Tablet, 1.25 MG PO DAILY Prescribed by: MARLYN NIETO on 10/20/22 1212 Ibuprofen (Ibuprofen) 200 Mg Tablet, 400 MG PO Q8H PRN for PAIN-MILD (1-4), (Reported) Entered as Reported by: JOCELYNE AMADO on 10/17/22 1432 Lisinopril/Hydrochlorothiazide (Lisinopril-Hctz 10-12.5 mg Tab) 10 Mg-12.5 Mg Tablet, 1 EACH PO DAILY, (Reported) Entered as Reported by: JOCELYNE AMADO on 10/17/22 1432 Metformin HCl (Metformin HCl) 1,000 Mg Tablet, 1,000 MG PO BID, (Reported) Entered as Reported by: JOCELYNE AMADO on 10/17/22 1431 Discontinued Medications Clindamycin HCl (Clindamycin HCl) 300 Mg Capsule, 300 MG PO QID Prescribed by: RICHAR GUTIERREZ on 12/25/222116 Last Action: Discontinued Clindamycin HCl (Clindamycin HCl) 300 Mg Capsule, 300 MG PO QID Prescribed by: JL GOODRICH on 12/26/221535 Last Action: Discontinued Past Fmdkjcp-Hqgupl-Xbepgl Hx Surgeries Surgeries: Orthopedic (R toe amputation) Endocrine Endocrine Disorders: Diabetes, Non-Insulin dep Reviewed Nursing Assessment Reviewed/Agree w Nursing PMH: Yes Family Medical History Significant Family History: No Pertinent Family Hx Review of Systems-General Constitutional: No chills, No fever EENTM: No blurred vision, No double vision Respiratory: No cough, No short of breath Cardiovascular: No chest pain, No palpitations Gastrointestinal: No abdominal pain, No diarrhea Genitourinary: No decreased output, No discharge Musculoskeletal: joint pain, other (Bilateral foot ulcers.) Skin: change in color, lesions (2.5 cm callus with center ulceration on L foot ) Psychiatric/Neurological: Denies Anxiety, Denies Depressed All Other Systems Reviewed Negative Unless Noted: Yes (Negative excepted noted.) Physical Exam-General Problems Physical Exam General Appearance: WD/WN, no apparent distress, obese HEENT: PERRL/EOMI, normal ENT inspection Neck: non-tender, normal inspection Respiratory: chest non-tender, no respiratory distress, no accessory muscle use Cardiovascular: regular rate, rhythm, no JVD Gastrointestinal: non tender, soft Back: normal inspection, no vertebral tenderness Extremities: normal range of motion, non-tender Neurologic/Psychiatric: alert, normal mood/affect, oriented x 3 Skin: warm/dry, other (2.5 cm callus with central ulceration on L foot. Minimal serosangunious drainage. 2.5 cm callus on R foot without any ulceration) Lymphatic: no adenopathy Assessment/Plan Assessment/Plan Assessment/Plan L foot ulcer. Hx of R toe amputation Diabetes X-ray today of L foot w/o any abnormalities Start clindamycin Follow up in clinic in 1-2 weeks. May need to be surgically debrided. Get sugars under control would recommend see a dietitian. Last A1c was 9. Supervisory-Addendum Brief Verification & Attestation Participated in pt care: history, MDM, physical Personally performed: exam, history, MDM, supervision of care Care discussed with: Medical Student Procedures: n/a Results interpretation: Verified all documentation Verification and Attestation of Medical Student E/M Service A medical student performed and documented this service in my presence. I reviewed and verified all information documented by the medical student and made modifications to such information, when appropriate. I personally performed the physical exam and medical decision making. Mildred Acosta, Dec,22:40 EDWIN CLAY 3, 2023 20:58 MILDRED ACOSTA DO Dec 26, 2022 16:32
[2022-12-25 21:04] LABS: ERYTHROCYTE SEDIMENTATION RATE 18 MM/HR (0-15)
[2022-12-25] MEDS ORDERED: CLIN-144 PO (21:17)
[2022-12-25 21:25] VITALS: BP 133/79
[2022-12-26] MEDS ORDERED: CLIN-144 PO (15:36)
== END 2022-12-25 21:26 | disposition home or self-care (01) ==
LOC: EDUNIT# 18:14 → ER 18:16
DX: E11.621 Type 2 diabetes mellitus with foot ulcer (principal); L97.529 Non-pressure chronic ulcer of other part of left foot with unspecified severity; E66.9 Obesity, unspecified; Z89.431 Acquired absence of right foot; Z88.1 Allergy status to other antibiotic agents; Z68.44 Body mass index [BMI] 60.0-69.9, adult
CPT/HCPCS: 36415; 73630; 80053; 83605; 85025; 85652; 86141; 87040

== ENCOUNTER 2023-01-09 20:12 | Inpatient (IN) | payer OTHER ==
[~2023-01-09] VITALS: Ht 190.5 cm; Wt 154.0 kg
[~2023-01-09 20:12] MED LIST changes: +CLIN-144 PO
[2023-01-09 20:58] LABS: BASOPHILS # (AUTO) 0.1 10^3/uL (0.0-0.1); BASOPHILS % (AUTO) 0 % (0-10); EOSINOPHILS # (AUTO) 0.1 10^3/uL (0.0-0.3); EOSINOPHILS % (AUTO) 1 % (0-10); HEMATOCRIT 43 % (40-54); HEMOGLOBIN 14.7 g/dL (13.3-17.7); LYMPHOCYTES # (AUTO) 2.3 10^3/uL (1.0-4.0); LYMPHOCYTES % (AUTO) 13 % (12-44); MEAN CORPUSCULAR HEMOGLOBIN 31 pg (25-34); MEAN CORPUSCULAR HGB CONC 34 g/dL (32-36); MEAN CORPUSCULAR VOLUME 90 fL (80-99); MEAN PLATELET VOLUME 10.2 fL (9.0-12.2); MONOCYTES # (AUTO) 1.1 10^3/uL (0.0-1.0); MONOCYTES % (AUTO) 6 % (0-12); NEUTROPHILS % (AUTO) 79 % (42-75); PLATELET COUNT 211 10^3/uL (130-400); WHITE BLOOD COUNT 17.6 10^3/uL (4.3-11.0)
[2023-01-09 21:15] LABS: PROTHROMBIN TIME PATIENT 13.4 SEC (12.2-14.7)
[2023-01-09 21:19] LABS: CALCIUM 9.4 MG/DL (8.5-10.1); CREATININE SERUM 0.97 MG/DL (0.60-1.30); POTASSIUM 4.1 MMOL/L (3.6-5.0); TOTAL PROTEIN 7.8 GM/DL (6.4-8.2)
--- NOTE | 2023-01-09 21:22 | Diagnostic Imaging Report ---
EXAMINATION: Chest 1 view HISTORY: Shortness of breath. COMPARISON: 10/16/2022. FINDINGS: The lung volumes are normal. No focal consolidation is seen. No large pleural effusion or pneumothorax is seen. The cardiomediastinal silhouette is normal in size and contour. No acute osseous abnormality is seen. IMPRESSION: 1. No acute pleuroparenchymal process. Dictated by: Dictated on workstation # [id number]
--- NOTE | 2023-01-09 21:26 | Diagnostic Imaging Report ---
CLINICAL HISTORY: Right foot pain. Redness and swelling. COMPARISON: 10/16/2022. TECHNIQUE: 4 views of the bilateral feet. FINDINGS: There is no acute fracture or dislocation of the feet. Prior right 2nd digit amputation is again noted at the distal metatarsal. No focal osseous lesions are seen. Mild edema seen along the dorsum of the right foot. IMPRESSION: 1. No acute fracture or dislocation in the feet. 2. Mild soft tissue edema along the dorsum of the right foot. 3. Redemonstration of prior right 2nd digit amputation. Dictated by: Dictated on workstation # [id number]
[2023-01-09 21:42] LABS: ERYTHROCYTE SEDIMENTATION RATE 17 MM/HR (0-15); LYMPHOCYTES % (MANUAL) 18 %; MONOCYTES % (MANUAL) 3 %; NEUTROPHILS % (MANUAL) 79 %; RBC MORPH NORMAL
--- NOTE | 2023-01-09 21:42 | ED Lower Extremity ---
General Chief Complaint: Lower Extremity Stated Complaint: RT FOOT ULCER AND SWOLLEN, LT FOOT OPEN WOUND Nursing Triage Note: patient states rt foot pain two days ago, swelling and redness last night. Source: patient Exam Limitations: no limitations (TOBIAS DRAKE) History of Present Illness Date Seen by Provider: Jan 09, 2023 Time Seen by Provider: 20:51 Initial Comments 42yo M with h/o DM, and R foot 2nd digit amputation presents to the ED with c/o new onset swelling, redness, and pain of R foot that started ~24hrs ago. Pt is currently seeing Dr. Slade for wound management of wound on b/l soles of feet. Pt states within the last 24 hours he has experienced increased pain and swelling stemming from the R foot wound that spreads form the sole of foot to midway down dorsum of foot on the lateral aspect. Pt states that mother was able to express some purulent drainage from wound this evening, prior to this was having no discharge from either wound. Pt is known diabetic and had to have R 2nd digit of foot amputated due to diabetes. Pt denies any fevers, chills, diarrhea, CP, and SOA. Onset: yesterday Severity: mild Pain/Injury Location: right foot (TOBIAS DRAKE) Allergies and Home Medications Allergies Coded Allergies: amoxicillin (Verified Allergy, Unknown, 07/12/21) Patient Home Medication List Home Medication List Reviewed: Yes (TOBIAS DRAKE) Home Medication List Reviewed: Yes (MARYLIN HAWTHORNE MD) Acetaminophen (Tylenol Extra Strength) 500 Mg Tablet, 1,000 MG PO Q8H PRN for PAIN-MILD (1-4), (Reported) Entered as Reported by: JOCELYNE AMADO on 10/17/22 1433 Clindamycin HCl (Clindamycin HCl) 300 Mg Capsule, 300 MG PO QID Prescribed by: JL GOODRICH on 12/26/22 1536 Daptomycin (Daptomycin) 500 Mg Vial, 1,000 MG IV DAILY Prescribed by: MARLYN NIETO on 10/20/22 1206 Glyburide (Glyburide) 1.25 Mg Tablet, 1.25 MG PO DAILY Prescribed by: MARLYN NIETO on 10/20/22 1212 Ibuprofen (Ibuprofen) 200 Mg Tablet, 400 MG PO Q8H PRN for PAIN-MILD (1-4), (Reported) Entered as Reported by: JOCELYNE AMADO on 10/17/22 1432 Lisinopril/Hydrochlorothiazide (Lisinopril-Hctz 10-12.5 mg Tab) 10 Mg-12.5 Mg Tablet, 1 EACH PO DAILY, (Reported) Entered as Reported by: JOCELYNE AMADO on 10/17/22 1432 Metformin HCl (Metformin HCl) 1,000 Mg Tablet, 1,000 MG PO BID, (Reported) Entered as Reported by: JOCELYNE AMADO on 10/17/22 1431 Review of Systems Constitutional: no symptoms reported EENTM: no symptoms reported Respiratory: no symptoms reported Cardiovascular: no symptoms reported Gastrointestinal: no symptoms reported Genitourinary: no symptoms reported Musculoskeletal: no symptoms reported Skin: other (erythema, swelling, and drainge of R foot wound) Psychiatric/Neurological: No Symptoms Reported (TOBIAS DRAKE) All Other Systems Reviewed Negative Unless Noted: Yes (TOBIAS DRAKE) Past Xiztndu-Cyehcy-Vzrnhl Hx Patient Social History Tobacco Use?: No Use of E-Cig and/or Vaping dev: No Substance use?: No (TOBIAS DRAKE) Past Medical History Surgery/Hospitalization HX: iddm, htn, asthma, right toe amputation, right knee Surgeries: Yes (R 2ND toe removal from osteomyelitis; RIGHT KNEE SCOPE; INGROWN TOENAILS) Orthopedic Respiratory: Yes Asthma Cardiac: Yes Hypertension Neurological: No Genitourinary: No Gastrointestinal: No Musculoskeletal: Yes (OSTEOMYELITIS WITH AMPUTATION OF R 2ND TOE;R KNEE SCOPE) Amputee Endocrine: Yes (OBESITY) Diabetes, Non-Insulin dep HEENT: No Cancer: No Psychosocial: No Integumentary: Yes (CHRONIC DIABETIC FOOT ULCER, OSTEOMYELITIS) Blood Disorders: No (TOBIAS DRAKE) Family Medical History No Pertinent Family Hx (TOBIAS DRAKE) Physical Exam Vital Signs Vital Signs - First Documented 01/09/23 20:40 Temp 36.5 Pulse 125 Resp 20 B/P (MAP) 187/99 (128) Pulse Ox 95 O2 Delivery Room Air (MARYLIN HAWTHORNE MD) Vital Signs Capillary Refill : Less Than 3 Seconds (TOBIAS DRAKE) Height, Weight, BMI Height: '" Weight: lbs. oz. kg; 42.00 BMI Method: General Appearance: no apparent distress, obese HEENT: PERRL/EOMI Feet: right foot abrasions/lacerations, right foot swelling (erythema, warmth, and swelling of R anteriolateral aspect of dosrum of foot that extends from wound just inferior to 3rd digit on sole of foot) Neurologic/Psychiatric: alert, normal mood/affect, oriented x 3 Skin: warm/dry, other (<1cm round wound located on R sole of foot just inferior to 3rd digit. Wound surrounded by calculus that's ~ 4cm. Surrounding erythema and warmth that extends superiorly from wound to anteriolateral aspect of R dorsum of foot. Scant serous fluid expressed with pressure. Dry healing diabetic ulcer located on L sole of foot just inferior to 2nd and 3rd digit, no erythema or warmth noted) Lymphatic: no adenopathy (TOBIAS DRAKE) Progress/Results/Core Measures Results/Orders Lab Results Laboratory Tests Test 01/09/23 20:45 01/09/23 22:50 Range/Units White Blood Count 17.6 H 4.3-11.0 10^3/uL Red Blood Count 4.79 4.30-5.52 10^6/uL Hemoglobin 14.7 13.3-17.7 g/dL Hematocrit 43 40-54 % Mean Corpuscular Volume 90 80-99 fL Mean Corpuscular Hemoglobin 31 25-34 pg Mean Corpuscular Hemoglobin Concent 34 32-36 g/dL Red Cell Distribution Width 13.6 10.0-14.5 % Platelet Count 211 130-400 10^3/uL Mean Platelet Volume 10.2 9.0-12.2 fL Immature Granulocyte % (Auto) 1 % Neutrophils (%) (Auto) 79 H 42-75 % Lymphocytes (%) (Auto) 13 12-44 % Monocytes (%) (Auto) 6 0-12 % Eosinophils (%) (Auto) 1 0-10 % Basophils (%) (Auto) 0 0-10 % Neutrophils # (Auto) 14.0 H 1.8-7.8 10^3/uL Lymphocytes # (Auto) 2.3 1.0-4.0 10^3/uL Monocytes # (Auto) 1.1 H 0.0-1.0 10^3/uL Eosinophils # (Auto) 0.1 0.0-0.3 10^3/uL Basophils # (Auto) 0.1 0.0-0.1 10^3/uL Immature Granulocyte # (Auto) 0.1 0.0-0.1 10^3/uL Neutrophils % (Manual) 79 % Lymphocytes % (Manual) 18 % Monocytes % (Manual) 3 % Blood Morphology Comment NORMAL Erythrocyte Sedimentation Rate 17 H 0-15 MM/HR Prothrombin Time 13.4 12.2-14.7 SEC INR Comment 1.0 0.8-1.4 Activated Partial Thromboplast Time 31 24-35 SEC Sodium Level 130 L 135-145 MMOL/L Potassium Level 4.1 3.6-5.0 MMOL/L Chloride Level 98 98-107 MMOL/L Carbon Dioxide Level 21 21-32 MMOL/L Anion Gap 11 5-14 MMOL/L Blood Urea Nitrogen 17 7-18 MG/DL Creatinine 0.97 0.60-1.30 MG/DL Estimat Glomerular Filtration Rate 101 BUN/Creatinine Ratio 18 Glucose Level 405 *H 70-105 MG/DL Lactic Acid Level 2.56 *H 2.29 *H 0.50-2.00 MMOL/L Calcium Level 9.4 8.5-10.1 MG/DL Corrected Calcium 9.4 8.5-10.1 MG/DL Total Bilirubin 1.0 0.1-1.0 MG/DL Aspartate Amino Transf (AST/SGOT) 16 5-34 U/L Alanine Aminotransferase (ALT/SGPT) 26 0-55 U/L Alkaline Phosphatase 76 40-136 U/L Total Protein 7.8 6.4-8.2 GM/DL Albumin 4.0 3.2-4.5 GM/DL (MARYLIN HAWTHORNE MD) My Orders Orders - MARYLIN HAWTHORNE MD Cbc With Automated Diff (01/09/23 20:50) Comprehensive Metabolic Panel (01/09/23 20:50) Blood Culture (01/09/23 20:50) Sputum Culture (01/09/23 20:50) Urinalysis (01/09/23 20:50) Urine Culture (01/09/23 20:50) Protime With Inr (01/09/23 20:50) Partial Thromboplastin Time (01/09/23 20:50) Chest 1 View, Ap/Pa Only (01/09/23 20:50) Ed Iv/Invasive Line Start (01/09/23 20:50) Ed Iv/Invasive Line Start (01/09/23 20:50) Vital Signs Adult Sepsis Patie Q15M (01/09/23 20:50) O2 (01/09/23 20:50) Remove Rings In Anticipation O (01/09/23 20:50) Lactic Acid Analyzer (01/09/23 20:50) Erythrocyte Sedimentation Rate (01/09/23 20:50) Foot, Bilateral, 2 Views (01/09/23 20:50) Manual Differential (01/09/23 20:45) Vancomycin Injection (Vancomycin Injecti (01/09/23 21:45) Wound Culture (01/09/23 21:45) Cefepime Injection (Cefepime Injection) (01/09/23 22:15) Accucheck Stat ONCE (01/09/23 22:29) (MARYLIN HAWTHORNE MD) Medications Given in ED Current Medications Medications Dose Ordered Sig/Anna Route Start Time Stop Time Status Last Admin Dose Admin Cefepime HCl 1000 mg/Sodium Chloride 50 ml @ 100 mls/hr ONCE ONCE IV 01/09/23 22:15 01/09/23 22:44 DC 01/09/23 23:27 100 MLS/HR Vancomycin HCl 1000 mg/Sodium Chloride 250 ml @ 250 mls/hr ONCE ONCE IV 01/09/23 21:45 01/09/23 22:44 DC 01/09/23 22:22 250 MLS/HR (MARYLIN HAWTHORNE MD) Vital Signs/I&O 01/09/23 20:40 Temp 36.5 Pulse 125 Resp 20 B/P (MAP) 187/99 (128) Pulse Ox 95 O2 Delivery Room Air (MARYLIN HAWTHORNE MD) Blood Pressure Mean: 128 Progress Progress Note : Time: 22:16 Progress Note Patient seen and evaluated by me. I have reviewed the medical student's documentation and agree. My exam today includes physical exam, "sepsis work-up" to include CBC, Chem-12, coags, urinalysis, urine culture, blood cultures, lactic acid, ESR, wound culture of the right foot, chest x-ray. Pertinent physical exam findings well-developed well-nourished obese male in no acute distress. Heart is regular, tachycardic in the 130s. Blood pressure is good. He is not hypoxic on room air, no increased work of breathing. Lungs are clear to auscultation. Abdomen is soft and benign. Patient does have erythema over the right foot and distal right lower extremity. It is warm. Not significantly tender to the touch. Patient has bilateral plantar diabetic foot ulcers. The right ulcer is at the base of the second and third toe. It is open, not drai hi. Large callus. The left foot also has rather large plantar ulcer at the base of the second toe. Neither of these are tender to palpation. Dorsalis pedis pulses are 2+ in both feet. Sensation is intact. Patient denies any neuropathy symptoms. Differential diagnosis, sepsis due to cellulitis, osteomyelitis. Patient's labs, imaging independently reviewed and interpreted by me. His CBC shows a leukocytosis of 17.6 with 79% segmented neutrophils. Otherwise CBC is normal. Chem-12 pertinent for a sodium slightly low at 130 and a glucose significantly elevated at 405. His sed rate is 17. His coags are within normal limits. Patient had not provided a urine sample at the time of this dictation. Chest x-ray is normal without any evidence of effusion, infiltrate. His foot x- rays show no evidence of periosteal elevation in the areas concerning. Radiology read is consistent with this. Patient is treated with IV fluids, normal saline as well as 1 g of vancomycin IV and 1 g of cefepime. Case was discussed with Dr. Nieto on for [facility] hospitalist service. She accepts the patient for admission to the medical floor. I have reviewed all of the findings with the patient. He is agreeable to admission. (MARYLIN HAWTHORNE MD) Diagnostic Imaging Diagonstic Imaging: Xray Comments [facility], [place] NAME: BRIAN MOTA [facility] REC#: [id number] PT STATUS: REG ER : 1980 PHYSICIAN: MARLYIN HAWTHORNE MD ADMIT DATE: 01/09/23/ER Signed Date of Exam:01/09/23 CHEST 1 VIEW, AP/PA ONLY EXAMINATION: Chest 1 view HISTORY: Shortness of breath. COMPARISON: 10/16/2022. FINDINGS: The lung volumes are normal. No focal consolidation is seen. No large pleural effusion or pneumothorax is seen. The cardiomediastinal silhouette is normal in size and contour. No acute osseous abnormality is seen. IMPRESSION: 1. No acute pleuroparenchymal process. Dictated by: Dictated on workstation # [id number] Dict: 01/09/232119 Trans: 01/09/232139 JOSUÉ Interpreted by: PAYTON LOCK DO Electronically signed by: PAYTON LOCK DO 01/09/232139 Diagonstic Imaging: Xray Comments [facility], [place] NAME: BRIAN MOTA [facility] REC#: [id number] PT STATUS: REG ER : 1980 PHYSICIAN: MARYLIN HAWTHORNE MD ADMIT DATE: 01/09/23/ER Signed Date of Exam:01/09/23 FOOT, BILATERAL, 2 VIEWS CLINICAL HISTORY: Right foot pain. Redness and swelling. COMPARISON: 10/16/2022. TECHNIQUE: 4 views of the bilateral feet. FINDINGS: There is no acute fracture or dislocation of the feet. Prior right 2nd digit amputation is again noted at the distal metatarsal. No focal osseous lesions are seen. Mild edema seen along the dorsum of the right foot. IMPRESSION: 1. No acute fracture or dislocation in the feet. 2. Mild soft tissue edema along the dorsum of the right foot. 3. Redemonstration of prior right 2nd digit amputation. Dictated by: Dictated on workstation # [id number] Dict: 01/09/232120 Trans: 01/09/232139 JOSUÉ Interpreted by: PAYTON LOCK DO Electronically signed by: PAYTON LOCK DO 01/09/232139 (MARYLIN HAWTHORNE MD) Departure Communication (Admissions) Time/Spoke to Admitting Phy: 22:[address] Nieto ([facility] hospitalist) asked to add cefepime (MARYLIN HAWTHORNE MD) Impression Primary Impression: Sepsis Qualified Codes: A41.9 - Sepsis, unspecified organism Additional Impressions: Cellulitis of right foot Diabetic foot ulcers Qualified Codes: E11.621 - Type 2 diabetes mellitus with foot ulcer; L97.508 - Non-pressure chronic ulcer of other part of unspecified foot with other specified severity Hyperglycemia due to diabetes mellitus Disposition: ADMITTED INPATIENT Condition: Stable Admissions Decision to Admit Reason: Admit from ER (General) Decision to Admit/Date: Jan 09, 2023 Time/Decision to Admit Time: 22:20 (MARYLIN HAWTHORNE MD) Departure-Patient Inst. Referrals: KEN COREY APRN (PCP/Family) Primary Care Physician Sepsis Stage: Sepsis Possible Source: Skin/Soft Tissue (MARYLIN HAWTHORNE MD) Lactate Level 01/09/23 20:45: Lactic Acid Level 2.56*H 01/09/23 22:50: Lactic Acid Level 2.29*H (MARYLIN HAWTHORNE MD) Height, Weight, BMI Height: '" Weight: lbs. oz. kg; 42.62 BMI Method: Time of Focused Exam: 22:00 Respiratory: Lungs Clear, Normal Breath Sounds, No Accessory Muscle Use Cardiovascular: Regular Rate, Rhythm, Tachycardia Capillary Refill: Less Than 3 Seconds Peripheral Pulses: 2+ Radial Pulses (R), 2+ Radial Pulses (L) Skin: normal color, warm/dry (MARYLIN HAWTHORNE MD) Within 3hrs of presentation: Admin fluids, Admin ABX, Blood cultures prior to ABX's, Focus exam, Lactate level (MARYLIN HAWTHORNE MD) Copy Copies To 1: DREW LUQUE TAYLOR Jan 09, 2023 21:42 MARYLIN HAWTHORNE MD Jan 09, 2023 22:22
[2023-01-09] MEDS ORDERED: VANCOMYCIN INJECTION 1,000 MG in NS (IVPB) 250 ML 250 ML IV ONE (21:45)
[2023-01-09] MEDS ORDERED: CEFEPIME INJECTION 1,000 MG in NS (IVPB) 50 ML 50 ML IV ONE (22:15)
[2023-01-10] VITALS (8 sets, daily range): BP systolic 112–157; BP diastolic 53–86
[2023-01-10] MEDS ORDERED: NS IV 1000 ML 1,000 ML ONE (00:23)
[2023-01-10] MEDS: NS IV 1000 ML 1,000 ML IV SCH ×2 (00:25→07:46)
[2023-01-10] MEDS ORDERED: ACETAMINOPHEN 325 MG TABLET PO PRN (00:45)
[2023-01-10] MEDS ORDERED: VANCOMYCIN 1500MG/300ML PREMIX IV SCH (00:45)
[2023-01-10] MEDS ORDERED: ONDANSETRON INJECTION 4 MG/2 ML (SDV) IV PRN (00:45)
[2023-01-10] MEDS ORDERED: cloNIDine 0.1 MG TABLET PO PRN (00:45)
[2023-01-10] MEDS ORDERED: diphenhydrAMINE 25 MG TABLET PO PRN (00:45)
[2023-01-10] MEDS ORDERED: RT-ALBUTEROL SULF 2.5 MG/3 ML PRE-MIX VIAL INH PRN (03:30)
[2023-01-10] MEDS: CEFEPIME 1,000 MG/NS 50 ML IVPB IV SCH ×6 (05:19→18:27)
[2023-01-10] MEDS: HYDROcodone/ACETAMINOPHEN 5 MG/325 MG TABLET PO PRN ×2 (05:19→21:27)
[2023-01-10] MEDS: inSUlin ASPART 1 UNIT/0.01 ML (PER UNIT) SC SCH ×4 (05:33→21:15)
[2023-01-10 06:14] LABS: BASOPHILS # (AUTO) 0.1 10^3/uL (0.0-0.1); BASOPHILS % (AUTO) 1 % (0-10); EOSINOPHILS # (AUTO) 0.1 10^3/uL (0.0-0.3); EOSINOPHILS % (AUTO) 1 % (0-10); HEMATOCRIT 40 % (40-54); HEMOGLOBIN 13.8 g/dL (13.3-17.7); LYMPHOCYTES # (AUTO) 2.4 10^3/uL (1.0-4.0); LYMPHOCYTES % (AUTO) 19 % (12-44); MEAN CORPUSCULAR HEMOGLOBIN 31 pg (25-34); MEAN CORPUSCULAR HGB CONC 35 g/dL (32-36); MEAN CORPUSCULAR VOLUME 90 fL (80-99); MEAN PLATELET VOLUME 10.1 fL (9.0-12.2); MONOCYTES % (AUTO) 8 % (0-12); NEUTROPHILS # (AUTO) 9.2 10^3/uL (1.8-7.8); NEUTROPHILS % (AUTO) 71 % (42-75); PLATELET COUNT 165 10^3/uL (130-400); WHITE BLOOD COUNT 12.8 10^3/uL (4.3-11.0)
[2023-01-10 06:41] LABS: POTASSIUM 4.3 MMOL/L (3.6-5.0)
[2023-01-10 06:46] LABS: CREATININE SERUM 0.79 MG/DL (0.60-1.30)
[2023-01-10] MEDS: VANCOMYCIN 1500MG/300ML PREMIX IV SCH ×2 (08:20→16:50)
--- NOTE | 2023-01-10 08:20 | Consultation - Surgery ---
EDWIN CLAY 01/10/23 0820: History of Present Illness History of Present Illness Patient Consulted On(deandre/time) 01/10/23 08:13 Date Seen by Provider: Jan 10, 2023 Time Seen by Provider: 08:13 Reason for Visit: R foot ulcer/infection History of Present Illness Pt is a 42 y/o male with a past medical hx of T2DM with b/l foot ulcers and a R second toe amputation, who presented to the ER yesterday with R foot pain radiating outward from an existing ulcer. States that the pain started on Monday in the R foot and got progressively worse with associated swelling of the foot and increasing erythema. States that the erythema extended to the dorsum of his foot from the ulcer but did not travel up the leg. Rated the usual pain a 4/10 and states that his pain increased to a 6-7/10. Reports a pressure like sensation around his R foot with occasional burning. Last night, he noticed a red/yellow drainage from the R foot ulcer as well. Reports that he has been ambulating often in his room. Denies any fever, chills, SOB, or chest pain. Denies abd pain. Reports R medial thigh pain but states that he thinks this is muscular in nature. Of note, he states that he regularly sees a parts back counter man for debridement of his b/l foot ulcers and he last saw them 1 week ago where both ulcers where debrided at that time. Also of note, he reports that he recently was on a regimen of clindamycin for his foot ulcers and his last dose was 5 days ago. Consult requested by Dr. Nieto. Allergies and Home Medications Allergies Coded Allergies: amoxicillin (Verified Allergy, Unknown, 07/12/21) Patient Home Medication List Home Medication List Reviewed: Yes Acetaminophen (Tylenol Extra Strength) 500 Mg Tablet, 1,000 MG PO Q8H PRN for PAIN-MILD (1-4), (Reported) Entered as Reported by: JOCELYNE AMADO on 10/17/22 1433 Clindamycin HCl (Clindamycin HCl) 300 Mg Capsule, 300 MG PO QID Prescribed by: JL GOODRICH on 12/26/22 1536 Daptomycin (Daptomycin) 500 Mg Vial, 1,000 MG IV DAILY Prescribed by: MARLYN NIETO on 10/20/22 1206 Glyburide (Glyburide) 1.25 Mg Tablet, 1.25 MG PO DAILY Prescribed by: MARLYN NIETO on 10/20/22 1212 Ibuprofen (Ibuprofen) 200 Mg Tablet, 400 MG PO Q8H PRN for PAIN-MILD (1-4), (Reported) Entered as Reported by: JOCELYNE AMADO on 10/17/22 1432 Lisinopril/Hydrochlorothiazide (Lisinopril-Hctz 10-12.5 mg Tab) 10 Mg-12.5 Mg Tablet, 1 EACH PO DAILY, (Reported) Entered as Reported by: JOCELYNE AMADO on 10/17/22 1432 Metformin HCl (Metformin HCl) 1,000 Mg Tablet, 1,000 MG PO BID, (Reported) Entered as Reported by: JOCELYNE AMADO on 10/17/22 1431 Past Hjsnixu-Vfwsok-Qeqanv Hx Patient Social History Smoking Status: Never a Smoker Alcohol Use?: Yes Seasonal Allergies Seasonal Allergies: Yes Surgeries History of Surgeries: Yes (R 2ND toe removal from osteomyelitis; RIGHT KNEE SCOPE; INGROWN TOENAILS) Surgeries: Orthopedic (R menisucus knee surgery. R second toe amputation) Respiratory History of Respiratory Disorde: Yes Respiratory Disorders: Asthma Cardiovascular History of Cardiac Disorders: Yes Cardiac Disorders: Hypertension Neurological History of Neurological Disord: No Genitourinary History of Genitourinary Disor: No Gastrointestinal History of Gastrointestinal Di: No Musculoskeletal History of Musculoskeletal Dis: Yes (OSTEOMYELITIS WITH AMPUTATION OF R 2ND TOE;R KNEE SCOPE) Musculoskeletal Disorders: Amputee (R second toe) Endocrine History of Endocrine Disorders: Yes (OBESITY) Endocrine Disorders: Diabetes, Non-Insulin dep HEENT History of HEENT Disorders: No Cancer History of Cancer: No Psychosocial History of Psychiatric Problem: No Integumentary History of Skin or Integumenta: Yes (CHRONIC DIABETIC FOOT ULCER, OSTEOMYELITIS) Blood Transfusions History of Blood Disorders: No Family Medical History Significant Family History: No Pertinent Family Hx Review of Systems-General Constitutional: No chills, No fever EENTM: No blurred vision, No vision loss Respiratory: No cough, No dyspnea on exertion; short of breath (only when exposed to seasonal allergies. has hx of asthma) Cardiovascular: No chest pain, No palpitations Gastrointestinal: No abdominal pain, No constipation Genitourinary: No dysuria, No frequency Musculoskeletal: joint pain, muscle pain Skin: change in color, dryness, lesions Physical Exam-General Problems Physical Exam Vital Signs Vital Signs - First Documented 01/09/23 20:40 Temp 36.5 Pulse 125 Resp 20 B/P (MAP) 187/99 (128) Pulse Ox 95 O2 Delivery Room Air Capillary Refill : Less Than 3 Seconds General Appearance: WD/WN, no apparent distress, obese Neck: non-tender Respiratory: lungs clear, normal breath sounds, no respiratory distress, no accessory muscle use Cardiovascular: normal peripheral pulses, no murmur, tachycardia (HR 93 most recently) Peripheral Pulses: 2+ Dorsalis Pedis (R), 2+ Left Dors-Pedis (L), 2+ Radial Pulses (R), 2+ Radial Pulses (L) Gastrointestinal: non tender, soft Rectal: deferred Extremities: swelling (R foot), other (R foot with 1 cm callus with central ulceration and bloody discharge, tender to palpation. L foot with 1 cm callus and ulceration. Both feet with bandages applied to soles.) Neurologic/Psychiatric: alert, normal mood/affect Skin: warm/dry, other (1 cm ulceration of R sole of foot assocaited with radiating erythema) Data Review Labs Laboratory Tests 01/09/23 20:45: White Blood Count 17.6H, Red Blood Count 4.79, Hemoglobin 14.7, Hematocrit 43, Mean Corpuscular Volume 90, Mean Corpuscular Hemoglobin 31, Mean Corpuscular Hemoglobin Concent 34, Red Cell Distribution Width 13.6, Platelet Count 211, Mean Platelet Volume 10.2, Immature Granulocyte % (Auto) 1, Neutrophils (%) (Auto) 79H, Lymphocytes (%) (Auto) 13, Monocytes (%) (Auto) 6, Eosinophils (%) (Auto) 1, Basophils (%) (Auto) 0, Neutrophils # (Auto) 14.0H, Lymphocytes # (Auto) 2.3, Monocytes # (Auto) 1.1H, Eosinophils # (Auto) 0.1, Basophils # (Auto) 0.1, Immature Granulocyte # (Auto) 0.1, Neutrophils % (Manual) 79, Lymphocytes % (Manual) 18, Monocytes % (Manual) 3, Blood Morphology Comment NORMAL, Erythrocyte Sedimentation Rate 17H, Prothrombin Time 13.4, INR Comment 1.0, Activated Partial Thromboplast Time 31, Sodium Level 130L, Potassium Level 4.1, Chloride Level 98, Carbon Dioxide Level 21, Anion Gap 11, Blood Urea Nitrogen 17, Creatinine 0.97, Estimat Glomerular Filtration Rate 101, BUN/Creatinine Ratio 18, Glucose Level 405*H, Lactic Acid Level 2.56*H, Calcium Level 9.4, Corrected Calcium 9.4, Total Bilirubin 1.0, Aspartate Amino Transf (AST/SGOT) 16, Alanine Aminotransferase (ALT/SGPT) 26, Alkaline Phosphatase 76, Total Protein 7.8, Albumin 4.0 01/09/23 22:50: Lactic Acid Level 2.29*H 01/10/23 00:54: Lactic Acid Level 1.49 01/10/23 05:24: Glucometer 302H 01/10/23 05:58: White Blood Count 12.8H, Red Blood Count 4.45, Hemoglobin 13.8, Hematocrit 40, Mean Corpuscular Volume 90, Mean Corpuscular Hemoglobin 31, Mean Corpuscular Hemoglobin Concent 35, Red Cell Distribution Width 13.6, Platelet Count 165, Mean Platelet Volume 10.1, Immature Granulocyte % (Auto) 1, Neutrophils (%) (Auto) 71, Lymphocytes (%) (Auto) 19, Monocytes (%) (Auto) 8, Eosinophils (%) (Auto) 1, Basophils (%) (Auto) 1, Neutrophils # (Auto) 9.2H, Lymphocytes # (Auto) 2.4, Monocytes # (Auto) 1.0, Eosinophils # (Auto) 0.1, Basophils # (Auto) 0.1, Immature Granulocyte # (Auto) 0.1, Sodium Level 135, Potassium Level 4.3, Chloride Level 102, Carbon Dioxide Level 23, Anion Gap 10, Blood Urea Nitrogen 13, Creatinine 0.79, Estimat Glomerular Filtration Rate 114, BUN/Creatinine Ratio 16, Glucose Level 309H, Calcium Level 9.0 Microbiology 01/09/23 Gram Stain, Resulted Pending 01/09/23 Wound Culture - Preliminary, Resulted Strep, Beta Hemolytic Group B Assessment/Plan Assessment/Plan Assessment/Plan Cellulitis of R foot Diabetic bilateral foot ulcers Leukocytosis T2DM 2 view X-ray done 01/09 in the ER significant for mild edema seen along the dorsum of the right foot. No focal osseous lesions. Glucose was 309 today. Currently on metformin and glyburide. [employer] on better glucose control. On ER visit, his WBC was 17.6 and today it was 12.8. Currently on vancomycin and cefepime. Continue to monitor. Continue ambulating as tolerated. Consider surgical debridement of R foot ulcer. BUBBA ZHOU DO 01/10/23 1338: History of Present Illness History of Present Illness Time Seen by Provider: 11:19 History of Present Illness Surgery asked to consult regarding diabetic foot wounds. HPI per ED: 42yo M with h/o DM, and R foot 2nd digit amputation presents to the ED with c/o new onset swelling, redness, and pain of R foot that started ~24hrs ago. Pt is currently seeing Dr. Slade for wound management of wound on b/l soles of feet. Pt states within the last 24 hours he has experienced increased pain and swelling stemming from the R foot wound that spreads form the sole of foot to midway down dorsum of foot on the lateral aspect. Pt states that mother was able to express some purulent drainage from wound this evening, prior to this was having no discharge from either wound. Pt is known diabetic and had to have R 2nd digit of foot amputated due to diabetes. Pt denies any fevers, chills, diarrhea, CP, and SOA. When I saw pt today he stated that he is seeing Podiatry every Monday for wound care. They have done minimal debridement on the foot. He does have orthotics and special shoes. The swelling and pain in right foot was new; although, he had something similar on his left foot last week. Allergies and Home Medications Allergies Coded Allergies: amoxicillin (Verified Allergy, Unknown, 07/12/21) Patient Home Medication List Home Medication List Reviewed: Yes Acetaminophen (Tylenol Extra Strength) 500 Mg Tablet, 1,000 MG PO Q8H PRN for PAIN-MILD (1-4), (Reported) Entered as Reported by: JOCELYNE AMADO on 10/17/22 1433 Clindamycin HCl (Clindamycin HCl) 300 Mg Capsule, 300 MG PO QID Prescribed by: JL GOODRICH on 12/26/22 1536 Daptomycin (Daptomycin) 500 Mg Vial, 1,000 MG IV DAILY Prescribed by: MARLYN NIETO on 10/20/22 1206 Glyburide (Glyburide) 1.25 Mg Tablet, 1.25 MG PO DAILY Prescribed by: MARLYN NIETO on 10/20/22 1212 Ibuprofen (Ibuprofen) 200 Mg Tablet, 400 MG PO Q8H PRN for PAIN-MILD (1-4), (Reported) Entered as Reported by: JOCELYNE AMADO on 10/17/22 1432 Lisinopril/Hydrochlorothiazide (Lisinopril-Hctz 10-12.5 mg Tab) 10 Mg-12.5 Mg Tablet, 1 EACH PO DAILY, (Reported) Entered as Reported by: JOCELYNE AMADO on 10/17/22 1432 Metformin HCl (Metformin HCl) 1,000 Mg Tablet, 1,000 MG PO BID, (Reported) Entered as Reported by: JOCELYNE AMADO on 10/17/22 1431 Past Asgizgt-Pbvwze-Klcbkv Hx Patient Social History Smoking Status: Never a Smoker Alcohol Use?: Yes Seasonal Allergies Seasonal Allergies: Yes Surgeries History of Surgeries: Yes Surgeries: Orthopedic (R menisucus knee surgery. R second toe amputation) Respiratory History of Respiratory Disorde: Yes Respiratory Disorders: Asthma Cardiovascular History of Cardiac Disorders: Yes Cardiac Disorders: Hypertension Neurological History of Neurological Disord: Yes Neurological Disorders: Neuropathy Genitourinary History of Genitourinary Disor: No Gastrointestinal History of Gastrointestinal Di: No Musculoskeletal History of Musculoskeletal Dis: Yes Musculoskeletal Disorders: Amputee (R second toe) Endocrine History of Endocrine Disorders: Yes Endocrine Disorders: Diabetes, Non-Insulin dep (uncontrolled) HEENT History of HEENT Disorders: No Loss of Vision: Denies Hearing Impairment: Denies Cancer History of Cancer: No Psychosocial History of Psychiatric Problem: No Integumentary History of Skin or Integumenta: Yes Family Medical History Significant Family History: No Pertinent Family Hx Review of Systems-General Constitutional: No chills, No fever EENTM: No blurred vision, No vision loss Respiratory: No cough, No dyspnea on exertion; short of breath (only when exposed to seasonal allergies. has hx of asthma) Cardiovascular: No chest pain, No palpitations Gastrointestinal: No abdominal pain, No constipation Genitourinary: No dysuria, No frequency Musculoskeletal: joint pain, muscle pain Skin: change in color, dryness, lesions Physical Exam-General Problems Physical Exam General Appearance: WD/WN, no apparent distress, obese Eyes: Bilateral Eye PERRL, Bilateral Eye EOMI HEENT: pharynx normal; No scleral icterus (R), No scleral icterus (L) Neck: non-tender, supple Respiratory: lungs clear, normal breath sounds, no respiratory distress, no accessory muscle use Cardiovascular: normal peripheral pulses, no murmur, tachycardia (HR 93 most recently) Gastrointestinal: non tender, soft, no organomegaly Rectal: deferred Back: no CVA tenderness, no vertebral tenderness Extremities: swelling (R foot), other (R foot with 1 cm callus with central ulceration and bloody discharge, tender to palpation. L foot with 1 cm callus and ulceration. Both feet with bandages applied to soles.) Neurologic/Psychiatric: alert, normal mood/affect Skin: warm/dry, other (1 cm ulceration of R sole of foot assocaited with radiating erythema) Lymphatic: no adenopathy (neck, axilla or groin) Data Review Radiology Date of Exam:01/09/23 FOOT, BILATERAL, 2 VIEWS CLINICAL HISTORY: Right foot pain. Redness and swelling. COMPARISON: 10/16/2022. TECHNIQUE: 4 views of the bilateral feet. FINDINGS: There is no acute fracture or dislocation of the feet. Prior right 2nd digit amputation is again noted at the distal metatarsal. No focal osseous lesions are seen. Mild edema seen along the dorsum of the right foot. IMPRESSION: 1. No acute fracture or dislocation in the feet. 2. Mild soft tissue edema along the dorsum of the right foot. 3. Redemonstration of prior right 2nd digit amputation. Dictated by: Dictated on workstation # [id number] Dict: 01/09/232120 Trans: 01/09/232139 [facility] [id number] Interpreted by: PAYTON LOCK DO Electronically signed by: PAYTON LOCK DO 01/09/232139 Assessment/Plan Assessment/Plan Assessment/Plan Cellulitis of R foot Diabetic bilateral foot ulcers Leukocytosis T2DM 2 view X-ray done 01/09 in the ER significant for mild edema seen along the dorsum of the right foot. No focal osseous lesions. Glucose was 309 today. Currently on metformin and glyburide. [employer] on better glucose control. On ER visit, his WBC was 17.6 and today it was 12.8. Currently on vancomycin and cefepime. Continue to monitor. Continue ambulating as tolerated. Would recommend wound care and chemical debridement before considering surgical debridement of R foot ulcer. Supervisory-Addendum Brief Verification & Attestation Participated in pt care: history, MDM, physical Personally performed: exam, history, MDM, supervision of care Care discussed with: Medical Student Procedures: n/a Verification and Attestation of Medical Student E/M Service A medical student performed and documented this service. I then reviewed and verified all information documented by the medical student and made modifications to such information, when appropriate. I personally performed a physical exam, medical decision making and then discussed any differences between the notes and made revisions as necessary to create one note. Bubba Zhou , 01/10/23 , 13:39 EDWIN CLAY Jan 10, 2023 08:20 BUBBA ZHOU DO Jan 10, 2023 13:38
--- NOTE | 2023-01-10 09:20 | History & Physical-Hospitalist ---
MELISSAALDO 01/10/23 0920: History of Present Illness HPI/Chief Complaint 42-year-old male with history of T2DM and previous amputation of the 2nd digit of the right foot presented to the ED on 01/09 with chief complaint of right foot swelling and pain. He sees Dr. Slade for wound care for ulcers on both feet. The day before he started to notice that his right foot was becoming increasingly painful, swollen and red, continued to worsen over the next 24 hours leading to his presentation the ED. He reports that his mother was able to express some purulent drainage from the wound, but no drainage otherwise. X-ray showed mild soft tissue edema on the dorsum of the foot, no osseous lesions seen. Initial lact acid measured at 2.56, down to 1.49 after receiving 1L NS. Today he reports that he is doing better, not as much pain. WBC has gone down from 17.6 to 12.8. Wounds on both feet are clean and dry, dressing intact. The right foot has some swelling and erythema extending about senior care up the foot. Preliminary culture showed group B hemolytic strep, awaiting sensitivities. Patient has no other complaints. Source: patient Exam Limitations: no limitations Date Seen 01/10/23 Time Seen by a Provider: 09:00 Attending Physician Shital Rios Aprn PCP Admitting Physician: Radha Nieto DO Attending Physician: Radha Nieto DO Referring Physician Date of Admission Jan 09, 2023 at 23:40 Home Medications & Allergies Home Medications Reviewed patient Home Medication Reconciliation performed by pharmacy medication reconciliations oil and gas exploration technician and/or nursing. Patients Allergies have been reviewed. Allergies Allergies Coded Allergies amoxicillin (Verified Allergy, Unknown, 07/12/21) Past Zazukye-Ebjjgc-Vrhqlh Hx Patient Social History Tobacco Use?: No Smoking Status: Never a Smoker Smokeless Tobacco Frequency: Never a User Use of E-Cig and/or Vaping dev: No Substance use?: No Alcohol Use?: Yes Alcohol Frequency: Rarely Pt feels they are or have been: No Immunizations Up To Date Tetanus Booster (TDap): Unknown Hepatitis A: No Hepatitis B: No Seasonal Allergies Seasonal Allergies: Yes Current Status Advance Directives: No Communicates: Verbally Primary Language: Marshallese Preferred Spoken Language: Marshallese Sensory deficits: Vision impairment Implanted or Applied Medical D: None Past Medical History Surgeries: Orthopedic (R menisucus knee surgery. R second toe amputation) Asthma Hypertension Amputee (R second toe) Diabetes, Non-Insulin dep Blood Disorders: No Family Medical History No Pertinent Family Hx Review of Systems Constitutional: No chills, No diaphoresis, No fever EENTM: No hearing loss, No blurred vision Respiratory: No cough, No dyspnea on exertion Cardiovascular: No chest pain, No palpitations Gastrointestinal: No nausea, No vomiting Genitourinary: No dysuria, No hematuria Musculoskeletal: No back pain, No neck pain Skin: No change in hair/nails; other (R foot edematous, erythematous. Ulcers on soles of both feet dressing clean dry and intact) Psychiatric/Neurological: Denies Numbness, Denies Weakness Physical Exam Physical Exam Vital Signs Vital Signs - First Documented 01/09/23 20:40 Temp 36.5 Pulse 125 Resp 20 B/P (MAP) 187/99 (128) Pulse Ox 95 O2 Delivery Room Air Capillary Refill : Less Than 3 Seconds Height, Weight, BMI Height: '" Weight: lbs. oz. kg; 42.68 BMI Method: General Appearance: No Apparent Distress, WD/WN, Obese HEENT: PERRL/EOMI Neck: Non Tender, Supple Respiratory: Chest Non Tender, Lungs Clear, No Accessory Muscle Use, No Respiratory Distress Cardiovascular: Regular Rate, Rhythm, No Murmur, Normal Peripheral Pulses Gastrointestinal: Non Tender, Soft Rectal: Deferred Back: No Vertebral Tenderness Extremity: Normal Capillary Refill, Inflammation (R foot from sole to approximately senior care down the foot), Swelling (R foot) Neurologic/Psychiatric: Alert, Oriented x3 Skin: Warm/Dry, Erythema (R foot) Lymphatic: No Adenopathy Results Results/Procedures Labs Laboratory Tests 01/09/23 20:45 01/10/23 05:58 Patient resulted labs reviewed. Assessment/Plan Admission Diagnosis Cellulitis R foot: General surgery consulted, appreciate recs. Continue vancomycin and cefepim. Awaiting sensitivities from culture Insulin-independent T2DM: poorly controlled, SSI HTN: Resume home BP meds Asthma: albuterol as needed Obesity RADHA NIETO DO 01/10/231936: History of Present Illness HPI/Chief Complaint CC: Bilateral foot cellulitis HPI: This is a 42yoWM clinic patient of [facility] who presented to the ER with bilateral cellulitis of his feet. Overall he is doing better today. IV abx maintained. Source: patient Exam Limitations: no limitations Past Qbhgylw-Uqereb-Pragnv Hx Patient Social History Marrital Status: Employed/Student: unemployed Smoking Status: Never a Smoker Review of Systems Constitutional: see HPI, malaise, weakness EENTM: no symptoms reported Skin: rash (feet) Physical Exam Physical Exam General Appearance: No Apparent Distress, Chronically ill Respiratory: Lungs Clear, Normal Breath Sounds Cardiovascular: Regular Rate, Rhythm Extremity: Inflammation (R foot from sole to approximately senior care down the foot), Swelling (R foot), Other Assessment/Plan Admission Diagnosis Cellulitis bilateral feet DM HTN IV abx Surgery consult Admission Status: Inpatient Order (span 2 midnights) Reason for Inpatient Admission: Cellulitis with wounds may need surgery Supervisory-Addendum Brief Verification & Attestation Participated in pt care: history, MDM, physical Personally performed: exam, history, MDM, supervision of care Care discussed with: Medical Student Procedures: n/a Results interpretation: Verified all documentation Verification and Attestation of Medical Student E/M Service A medical student performed and documented this service in my presence. I reviewed and verified all information documented by the medical student and made modifications to such information, when appropriate. I personally performed the physical exam and medical decision making. Radha Nieto, Jan 10, 2023,19:37 ALDO TORRES Jan 10, 2023 09:20 RADHA NIETO DO Jan 10, 2023 19:37
[2023-01-10] MEDS: ENOXAPARIN 40 MG/0.4 ML SYRINGE SC SCH ×2 (09:58→21:14)
[2023-01-10] MEDS ORDERED: HYPOCHLOROUS ACID/NaCl WOUND SOLN 250 ML IR PRN (13:30)
[2023-01-10] MEDS ORDERED: GLYB1.253 PO (14:10)
[2023-01-10] MEDS: COLLAGENASE OINTMENT 30 GM TUBE TP SCH (21:15)
[2023-01-11] MEDS: CEFEPIME 1,000 MG/NS 50 ML IVPB IV SCH ×4 (00:14→06:01)
[2023-01-11] MEDS: VANCOMYCIN 1500MG/300ML PREMIX IV SCH ×2 (00:14→09:22)
[2023-01-11 03:29] VITALS: BP 110/54
[2023-01-11] MEDS: inSUlin ASPART 1 UNIT/0.01 ML (PER UNIT) SC SCH ×2 (06:00→12:32)
--- NOTE | 2023-01-11 07:17 | Progress Note - Surgery ---
EDWIN CLAY 01/11/23 0717: Subjective Date Seen by a Provider: Jan 11, 2023 Time Seen by a Provider: 07:11 Subjective/Events-last exam Pt is doing well today and states that his R foot pain is improved to a 2-3/10 at worst. He was seen by Wound Care yesterday and has dressing applied to b/l feet currently; he reports that they are planned to be changed twice a day. Reports that they did do a chemical debridement yesterday of his R foot ulcer. He states that he has been ambulating frequently. Denies any SOB, CP, fever or chills. Review of Systems General: No Chills, No Night Sweats HEENT: No Head Aches, No Visual Changes Pulmonary: No Dyspnea, No Cough Cardiovascular: No: Chest Pain, Palpitations Gastrointestinal: No: Nausea, Vomiting Genitourinary: No Dysuria, No Frequency Musculoskeletal: foot pain (R foot); No: neck pain Neurological: No: Change in speech, Confusion Focused Exam Sepsis Stage: Ruled Out Lactate Level 01/09/23 20:45: Lactic Acid Level 2.56*H 01/09/23 22:50: Lactic Acid Level 2.29*H 01/10/23 00:54: Lactic Acid Level 1.49 Time of Focused Exam: 22:00 Respiratory: Normal Breath Sounds, No Accessory Muscle Use, No Respiratory D istress Cardiovascular: No Murmur, Normal Peripheral Pulses Peripheral Pulses: 2+ Dorsalis Pedis (R), 2+ Left Dors-Pedis (L), 2+ Radial Pulses (R), 2+ Radial Pulses (L) Skin: warm/dry, ulcerations (B/l foot ulcerations with dressings applied) Objective Exam Vital Signs Date Time Temp Pulse Resp B/P (MAP) Pulse Ox O2 Delivery O2 Flow Rate FiO2 01/11/23 03:29 36.0 78 17 110/54 (72) 97 Room Air 01/10/23 23:21 35.9 74 17 112/53 (72) 96 Room Air 01/10/23 20:41 92 Room Air 01/10/23 20:00 Room Air 01/10/23 19:57 35.7 93 17 118/67 (84) 94 Room Air 01/10/23 16:32 36.7 83 17 115/71 (86) 96 Room Air 01/10/23 12:12 36.6 91 16 124/73 (90) 94 Room Air 01/10/23 09:53 96 Room Air 01/10/23 08:00 96 Room Air 01/10/23 07:30 36.4 93 16 119/77 (91) 96 Room Air 01/10/23 07:25 91 I & O 01/11/23 07:00 Intake Total 3295 ml Output Total 400 ml Balance 2895 ml Capillary Refill : Less Than 3 Seconds General Appearance: No Apparent Distress, Chronically ill, Obese HEENT: PERRL/EOMI Neck: Non Tender, Supple Respiratory: Lungs Clear, Normal Breath Sounds Cardiovascular: Normal Peripheral Pulses Peripheral Pulses: 2+ Dorsalis Pedis (R), 2+ Left Dors-Pedis (L), 2+ Radial Pulses (R), 2+ Radial Pulses (L) Gastrointestinal: non tender, soft, no organomegaly Extremity: Inflammation (R foot from sole to approximately residential down the foot), Swelling (R foot), Other (B/l foot dressings) Neurologic/Psychiatric: Alert, Oriented x3 Skin: Warm/Dry, Erythema (improved) Lymphatic: No Adenopathy Results Lab Laboratory Tests 01/10/23 10:54: Glucometer 220H 01/10/23 16:00: Urine Color YELLOW, Urine Clarity CLEAR, Urine pH 5.5, Urine Specific Superior 1.025H, Urine Protein 2+H, Urine Glucose (UA) 3+H, Urine Ketones NEGATIVE, Urine Nitrite NEGATIVE, Urine Bilirubin NEGATIVE, Urine Urobilinogen 0.2, Urine Leukocyte Esterase NEGATIVE, Urine RBC (Auto) 3+H, Urine RBC 50-100H, Urine WBC 2-5, Urine Squamous Epithelial Cells 2-5, Urine Crystals NONE, Urine Bacteria TRACE, Urine Casts NONE, Urine Mucus NEGATIVE, Urine Culture Indicated NO 01/10/23 16:37: Glucometer 212H 01/10/23 19:53: Glucometer 297H Microbiology 01/09/23 Blood Culture - Preliminary, Resulted 01/09/23 Gram Stain, Resulted Pending 01/09/23 Wound Culture - Preliminary, Resulted Strep, Beta Hemolytic Group B Assessment/Plan Assessment/Plan Assessment/Plan Cellulitis of R foot Diabetic bilateral foot ulcers Leukocytosis Uncontrolled T2DM 2 view X-ray done 01/09 in the ER significant for mild edema seen along the dorsum of the right foot. No focal osseous lesions. Most recent A1c is 9.4. Currently on metformin and glyburide but frequent medication noncompliance. 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 No current CBC for today but yesterday's WBC was 12.8. Currently on vancomycin and cefepime. Continue to monitor. Continue ambulating as tolerated. Pt now being followed by wound care. Wound care has done chemical debridement and applied b/l foot dressings. Would not consider surgical debridement at this time. If pts vitals change, WBC count goes up, or sxs worsen then reevaluate STEFAN WHITESIDE DO 01/11/23 1444: Subjective Time Seen by a Provider: 13:04 Subjective/Events-last exam Pt seen and examined, states pain is improved. He is getting wound care and they are doing chemical debridement. Review of Systems General: No Chills, No Night Sweats Pulmonary: No Dyspnea, No Cough Cardiovascular: No: Chest Pain, Palpitations Gastrointestinal: No: Nausea, Vomiting Musculoskeletal: foot pain (R foot) Objective Exam General Appearance: No Apparent Distress, Chronically ill, Obese HEENT: PERRL/EOMI Respiratory: Lungs Clear, Normal Breath Sounds, No Accessory Muscle Use, No Respiratory Distress Cardiovascular: Regular Rate, Rhythm, No Murmur Extremity: Inflammation (R foot from sole to approximately residential down the foot, looks better than yesterday), Swelling (R foot), Other (B/l foot dressings) Neurologic/Psychiatric: Alert, Oriented x3 Skin: Erythema (improved) Assessment/Plan Assessment/Plan Assessment/Plan Cellulitis of R foot Diabetic bilateral foot ulcers Leukocytosis Uncontrolled T2DM 2 view X-ray done 01/09 in the ER significant for mild edema seen along the dorsum of the right foot. No focal osseous lesions. Most recent A1c is 9.4. Currently on metformin and glyburide but frequent m edication noncompliance. 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 No current CBC for today but yesterday's WBC was 12.8. Currently on vancomycin and cefepime. Continue to monitor. Continue ambulating as tolerated. Pt now being followed by wound care. Wound care has done chemical debridement and applied b/l foot dressings. Would not consider surgical debridement at this time. If pts vitals change, WBC count goes up, or sxs worsen then reevaluate Supervisory-Addendum Brief Verification & Attestation Participated in pt care: history, MDM, physical Personally performed: exam, history, MDM, supervision of care Care discussed with: Medical Student Procedures: n/a Verification and Attestation of Medical Student E/M Service A medical student performed and documented this service. I then reviewed and verified all information documented by the medical student and made modifications to such information, when appropriate. I personally performed a physical exam, medical decision making and then discussed any differences between the notes and made revisions as necessary to create one note. Stefan Whiteside , 01/11/23 , 14:44 EDWIN CLAY Jan 11, 2023 07:17 STEFAN WHITESIDE DO Jan 11, 2023 14:44
[2023-01-11 07:18] VITALS: BP 104/61
[2023-01-11] MEDS ORDERED: TROUGH ORDER-PHARMACY XX ONE (08:00)
[2023-01-11] MEDS: ENOXAPARIN 40 MG/0.4 ML SYRINGE SC SCH (09:21)
[2023-01-11] MEDS: COLLAGENASE OINTMENT 30 GM TUBE TP SCH (09:22)
[2023-01-11 11:59] VITALS: BP 121/81
--- NOTE | 2023-01-11 12:48 | Progress Note ---
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 He sees Dr. Slade for wound care for ulcers on both feet. The day before he started to notice that his right foot was becoming increasingly painful, swollen and red, continued to worsen over the next 24 hours leading to his presentation the ED. He reports that his mother was able to express some purulent drainage from the wound, but no drainage otherwise. X-ray showed mild soft tissue edema on the dorsum of the foot, no osseous lesions seen. Initial lact acid measured at 2.56, down to 1.49 after receiving 1L NS. Patient was treated with IV cefepime throughout his stay. General surgery was consulted, recommended chemical debridement and wound care. Patient reports that his swelling and pain improved throughout the stay, was able to walk on it without much pain. He is being prepared for discharge later today with vashe solution, wound care instruction, oral antibiotics, reports he has an appointment on Monday with Dr. Slade. RADHA MYERS DO 01/11/231958: Supervisory-Addendum Brief Verification & Attestation Participated in pt care: history, MDM, physical Personally performed: exam, history, MDM, supervision of care Care discussed with: Medical Student Procedures: n/a Results interpretation: Verified all documentation Verification and Attestation of Medical Student E/M Service A medical student performed and documented this service in my presence. I reviewed and verified all information documented by the medical student and made modifications to such information, when appropriate. I personally performed the physical exam and medical decision making. Radha Myers Jan 11, 2023,19:59 ALDO TORRES Jan 11, 2023 12:48 RADHA MYERS DO Jan 11, 2023 19:59
[2023-01-11] MEDS ORDERED: CLIN-144 PO (13:39)
--- NOTE | 2023-01-11 13:39 | Discharge Summary ---
Discharge Summary Hospital Course Hospital Course Date of Admission: Jan 09, 2023 at 23:40 Admission Diagnosis : Family Physician/Provider: Shital Rios Aprn Date of Discharge: 01/11/23 Discharge Diagnosis: [ ] Hospital Course: [ ] Labs and Pending Lab Test: Laboratory Tests 01/10/23 16:37: Glucometer 212H 01/10/23 19:53: Glucometer 297H 01/11/23 08:15: Vancomycin Level Trough 10.6 01/11/23 11:57: Glucometer 262H Microbiology 01/09/23 Blood Culture - Preliminary, Resulted 01/09/23 Gram Stain - Final, Resulted 01/09/23 Wound Culture - Preliminary, Resulted Strep, Beta Hemolytic Group B Staphylococcus aureus Home Meds Active Reported Glyburide 1.25 Mg Tablet 1.25 Mg PO DAILY LAST FILLED 10-21-2022 #30 DAY SUPPLY Lisinopril-Hctz 10-12.5 mg Tab (Lisinopril/Hydrochlorothiazide) 10 Mg-12.5 Mg Tablet 1 Each PO DAILY LAST FILLED 02-08-2022 #90/ DAY SUPPLY Metformin HCl 1,000 Mg Tablet 1,000 Mg PO BID LAST FILLED 09-23-2022 #180/90 DAY SUPPLY Discharge Physical Examination Vital Signs Vital Signs Date Time Temp Pulse Resp B/P (MAP) Pulse Ox O2 Delivery O2 Flow Rate FiO2 01/11/23 11:59 36.2 88 16 121/81 (94) 97 Room Air Allergies: Coded Allergies: amoxicillin (Verified Allergy, Unknown, 07/12/21) Discharge Summary Date of Admission Jan 09, 2023 at 23:40 Date of Discharge Discharge Date: Jan 11, 2023 Admission Diagnosis Cellulitis bilateral feet DM HTN IV abx Surgery consult MARLYN NIETO DO Jan 11, 2023 13:39
[2023-01-11] MEDS ORDERED: CEPH500T PO (14:35)
[2023-01-11] MEDS ORDERED: SULF1TAB38 PO (14:35)
--- NOTE | 2023-01-11 14:35 | Discharge Summary ---
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 He sees Dr. Slade for wound care for ulcers on both feet. The day before he started to notice that his right foot was becoming increasingly painful, swollen and red, continued to worsen over the next 24 hours leading to his presentation the ED. He reports that his mother was able to express some purulent drainage from the wound, but no drainage otherwise. X-ray showed mild soft tissue edema on the dorsum of the foot, no osseous lesions seen. Initial lact acid measured at 2.56, down to 1.49 after receiving 1L NS. Patient was treated with IV cefepime throughout his stay. General surgery was consulted, recommended chemical debridement and wound care. Patient reports that his swelling and pain improved throughout the stay, was able to walk on it without much pain. He is being prepared for discharge later today with vashe solution, wound care instruction, oral antibiotics, reports he has an appointment on Monday with Dr. Slade. Labs and Pending Lab Test: Laboratory Tests 01/10/23 16:37: Glucometer 212H 01/10/23 19:53: Glucometer 297H 01/11/23 08:15: Vancomycin Level Trough 10.6 01/11/23 11:57: Glucometer 262H Microbiology 01/09/23 Blood Culture - Preliminary, Resulted 01/09/23 Gram Stain - Final, Resulted 01/09/23 Wound Culture - Preliminary, Resulted Strep, Beta Hemolytic Group B Staphylococcus aureus Home Meds Active Clindamycin HCl 300 Mg Capsule 300 Mg PO TID Reported Glyburide 1.25 Mg Tablet 1.25 Mg PO DAILY LAST FILLED 10-21-2022 #30/30 DAY SUPPLY Lisinopril-Hctz 10-12.5 mg Tab (Lisinopril/Hydrochlorothiazide) 10 Mg-12.5 Mg Tablet 1 Each PO DAILY LAST FILLED 02-08-2022 #90/ DAY SUPPLY Metformin HCl 1,000 Mg Tablet 1,000 Mg PO BID LAST FILLED 09-23-2022 #180/ DAY SUPPLY Assessment/Pt Instructions PCP 1 week Discharge Planning: <30 minutes discharge planning Discharge Instructions Discharge Diet: ADA Diet Activity as Tolerated: Yes Discharge Physical Examination Vital Signs Vital Signs Date Time Temp Pulse Resp B/P (MAP) Pulse Ox O2 Delivery O2 Flow Rate FiO2 01/11/23 11:59 36.2 88 16 121/81 (94) 97 Room Air General Appearance: No Apparent Distress, WD/WN, Chronically ill Allergies: Coded Allergies: amoxicillin (Verified Allergy, Unknown, 07/12/21) Discharge Summary Date of Admission Jan 09, 2023 at 23:40 Date of Discharge Discharge Date: Jan 11, 2023 Admission Diagnosis Cellulitis bilateral feet DM HTN IV abx Surgery consult MARLYN NIETO DO Jan 11, 2023 14:35
[2023-01-11 15:33] VITALS: BP 121/81
--- NOTE | 2023-01-12 22:45 | Physician Query Clarification ---
PQ-Uncertain Diagnosis Admission/Discharge Admission Date: Jan 09, 2023 at 23:40 Discharge Date: Jan 11, 2023 at 15:36 The medical record reflects the following clinical scenario: History/Risk Factors: A 42 years old male admitted with bilateral foot cellulitis, sepsis was documented in medical record. ER physician notes, 01/09: Sepsis, bilateral foot cellulitis, diabetic foot ulcers. Hand P, 01/09: Cellulitis right foot, insulin dependent diabetes, asthma, obesity. Clinical Findings: Wbc - 17.5 H, pulse - 125, temp - 36.5, lactic acid - 2.56 H Treatment: IV antibiotics. Question: Is sepsis a clinically valid diagnosis? Sepsis was documented in the ER physician notes, 01/09 with no further documentation in the medical record. Please document a response in Progress Note or Discharge Summary. 1. Yes, clinically valid, condition resolved. 2. No, condition ruled out. 3. Other, with explanation of clinical findings. 4. Undetermined, no explanation for clinical findings. PHYSICIAN RESPONSE Diagnosis clinically valid: Yes, Conditon resolved In responding to this query, please exercise your independent professional judgment. The purpose of this communication is to more accurately reflect the complexity of your patients condition. The fact that a question is asked does not imply that any particular answer is desired or expected. Thank you for your timely response to this clarification. Requestors name: [ ] Phone # [ ] THIS PHYSICIAN QUERY FORM IS A PERMANENT PART OF THE MEDICAL RECORD NEHA SELLERS Jan 12, 2023 22:45 MARLYN NIETO DO Jan 13, 2023 05:07
== END 2023-01-11 15:36 | disposition home or self-care (01) | DRG 872 ==
LOC: EDUNIT# 20:12 → ER 20:15 → 4TH 23:40
PROVIDERS: ADMIT Internal Medicine; ATTEND Internal Medicine
DX: A41.9 Sepsis, unspecified organism (principal); L03.115 Cellulitis of right lower limb; L97.419 Non-pressure chronic ulcer of right heel and midfoot with unspecified severity; L03.116 Cellulitis of left lower limb; Z68.41 Body mass index [BMI] 40.0-44.9, adult; E11.621 Type 2 diabetes mellitus with foot ulcer; Z79.899 Other long term (current) drug therapy; Z79.84 Long term (current) use of oral hypoglycemic drugs; Z89.421 Acquired absence of other right toe(s); J45.909 Unspecified asthma, uncomplicated; I10 Essential (primary) hypertension; E66.9 Obesity, unspecified; E11.65 Type 2 diabetes mellitus with hyperglycemia; Z79.4 Long term (current) use of insulin
CPT/HCPCS: 36415; 71045; 80048; 80053; 80202; 81000; 82947; 83036; 83605; 85007; 85025; 85027; 85610; 85652; 85730; 87040; 87070; 87077; 87088; 87186; 87205; 94760

== ENCOUNTER → 2023-01-25 | Outpatient (CLI) | payer OTHER ==
[~2023-01-25] MED LIST changes: +SULF1TAB38 PO
== END ==
LOC: WOUNDCARE 14:09
PROVIDERS: ATTEND Family Medicine
DX: L97.512 Non-pressure chronic ulcer of other part of right foot with fat layer exposed (principal); L97.522 Non-pressure chronic ulcer of other part of left foot with fat layer exposed; E11.621 Type 2 diabetes mellitus with foot ulcer; E11.65 Type 2 diabetes mellitus with hyperglycemia; E66.01 Morbid (severe) obesity due to excess calories; Z68.41 Body mass index [BMI] 40.0-44.9, adult; M20.41 Other hammer toe(s) (acquired), right foot; M14.671 Charcot's joint, right ankle and foot; M14.672 Charcot's joint, left ankle and foot; E11.42 Type 2 diabetes mellitus with diabetic polyneuropathy; B95.62 Methicillin resistant Staphylococcus aureus infection as the cause of diseases classified elsewhere; B95.1 Streptococcus, group B, as the cause of diseases classified elsewhere; L03.115 Cellulitis of right lower limb; E11.52 Type 2 diabetes mellitus with diabetic peripheral angiopathy with gangrene; I96 Gangrene, not elsewhere classified
CPT/HCPCS: 11042; G0463

== ENCOUNTER → 2023-01-30 | Outpatient (CLI) | payer OTHER | LOC: WOUNDCARE 14:23 | PROVIDERS: ATTEND Family Medicine | DX: I96 Gangrene, not elsewhere classified (principal); E11.621 Type 2 diabetes mellitus with foot ulcer; E11.65 Type 2 diabetes mellitus with hyperglycemia; E11.40 Type 2 diabetes mellitus with diabetic neuropathy, unspecified; L97.512 Non-pressure chronic ulcer of other part of right foot with fat layer exposed; L97.522 Non-pressure chronic ulcer of other part of left foot with fat layer exposed; E66.01 Morbid (severe) obesity due to excess calories; M20.41 Other hammer toe(s) (acquired), right foot; M14.671 Charcot's joint, right ankle and foot; M14.672 Charcot's joint, left ankle and foot; B95.1 Streptococcus, group B, as the cause of diseases classified elsewhere; Z68.41 Body mass index [BMI] 40.0-44.9, adult | CPT/HCPCS: 11042; 87070; 87205; G0463; 87077 ==

== ENCOUNTER → 2023-02-06 | Outpatient (CLI) | payer OTHER | LOC: WOUNDCARE 14:11 | PROVIDERS: ATTEND Family Medicine | DX: L97.522 Non-pressure chronic ulcer of other part of left foot with fat layer exposed (principal); L97.512 Non-pressure chronic ulcer of other part of right foot with fat layer exposed; E11.621 Type 2 diabetes mellitus with foot ulcer; E11.65 Type 2 diabetes mellitus with hyperglycemia; E66.01 Morbid (severe) obesity due to excess calories; Z68.41 Body mass index [BMI] 40.0-44.9, adult; M20.41 Other hammer toe(s) (acquired), right foot; M14.671 Charcot's joint, right ankle and foot; M14.672 Charcot's joint, left ankle and foot; E11.40 Type 2 diabetes mellitus with diabetic neuropathy, unspecified; B95.62 Methicillin resistant Staphylococcus aureus infection as the cause of diseases classified elsewhere | CPT/HCPCS: 11042; G0463 ==

== ENCOUNTER → 2023-02-13 | Outpatient (CLI) | payer OTHER | LOC: WOUNDCARE 14:17 | PROVIDERS: ATTEND Family Medicine | DX: I96 Gangrene, not elsewhere classified (principal); E11.621 Type 2 diabetes mellitus with foot ulcer; E11.65 Type 2 diabetes mellitus with hyperglycemia; E11.40 Type 2 diabetes mellitus with diabetic neuropathy, unspecified; L97.512 Non-pressure chronic ulcer of other part of right foot with fat layer exposed; L97.522 Non-pressure chronic ulcer of other part of left foot with fat layer exposed; M20.41 Other hammer toe(s) (acquired), right foot; M14.671 Charcot's joint, right ankle and foot; M14.672 Charcot's joint, left ankle and foot; A49.02 Methicillin resistant Staphylococcus aureus infection, unspecified site; E66.01 Morbid (severe) obesity due to excess calories; Z68.41 Body mass index [BMI] 40.0-44.9, adult; Z91.119 Patient's noncompliance with dietary regimen due to unspecified reason | CPT/HCPCS: 11042; G0463 ==

== ENCOUNTER → 2023-02-20 | Outpatient (CLI) | payer OTHER | LOC: WOUNDCARE 14:21 | PROVIDERS: ATTEND Family Medicine | DX: I96 Gangrene, not elsewhere classified (principal); E11.621 Type 2 diabetes mellitus with foot ulcer; E11.65 Type 2 diabetes mellitus with hyperglycemia; E11.40 Type 2 diabetes mellitus with diabetic neuropathy, unspecified; L97.512 Non-pressure chronic ulcer of other part of right foot with fat layer exposed; L97.522 Non-pressure chronic ulcer of other part of left foot with fat layer exposed; M20.41 Other hammer toe(s) (acquired), right foot; M14.671 Charcot's joint, right ankle and foot; M14.672 Charcot's joint, left ankle and foot; A49.02 Methicillin resistant Staphylococcus aureus infection, unspecified site; E66.01 Morbid (severe) obesity due to excess calories; Z91.119 Patient's noncompliance with dietary regimen due to unspecified reason; Z68.41 Body mass index [BMI] 40.0-44.9, adult | CPT/HCPCS: 11042; A6212; G0463 ==

== ENCOUNTER → 2023-03-01 | Outpatient (CLI) | payer OTHER | LOC: WOUNDCARE 14:04 | PROVIDERS: ATTEND Family Medicine | DX: E11.621 Type 2 diabetes mellitus with foot ulcer (principal); E11.65 Type 2 diabetes mellitus with hyperglycemia; E11.40 Type 2 diabetes mellitus with diabetic neuropathy, unspecified; L97.512 Non-pressure chronic ulcer of other part of right foot with fat layer exposed; L97.522 Non-pressure chronic ulcer of other part of left foot with fat layer exposed; E66.01 Morbid (severe) obesity due to excess calories; M20.41 Other hammer toe(s) (acquired), right foot; M14.671 Charcot's joint, right ankle and foot; M14.672 Charcot's joint, left ankle and foot; Z91.119 Patient's noncompliance with dietary regimen due to unspecified reason; E11.52 Type 2 diabetes mellitus with diabetic peripheral angiopathy with gangrene; Z68.41 Body mass index [BMI] 40.0-44.9, adult | CPT/HCPCS: 11042; G0463 ==

== ENCOUNTER → 2023-03-08 | Outpatient (CLI) | payer OTHER ==
[2023-03-09 12:26] LABS: CALCIUM 9.2 MG/DL (8.5-10.1); CREATININE SERUM 0.93 MG/DL (0.60-1.30); POTASSIUM 4.3 MMOL/L (3.6-5.0)
== END ==
LOC: WOUNDCARE 14:14
PROVIDERS: ATTEND Family Medicine
DX: E11.621 Type 2 diabetes mellitus with foot ulcer (principal); E11.65 Type 2 diabetes mellitus with hyperglycemia; L97.512 Non-pressure chronic ulcer of other part of right foot with fat layer exposed; L97.522 Non-pressure chronic ulcer of other part of left foot with fat layer exposed; E66.01 Morbid (severe) obesity due to excess calories; M20.41 Other hammer toe(s) (acquired), right foot; M14.671 Charcot's joint, right ankle and foot; M14.672 Charcot's joint, left ankle and foot; Z91.119 Patient's noncompliance with dietary regimen due to unspecified reason; E11.40 Type 2 diabetes mellitus with diabetic neuropathy, unspecified; E11.52 Type 2 diabetes mellitus with diabetic peripheral angiopathy with gangrene; Z68.41 Body mass index [BMI] 40.0-44.9, adult
CPT/HCPCS: 11042; 80048; 85652; 86141; 87070; 87077; 87186; 87205; G0463; 36415

== ENCOUNTER → 2023-03-13 | Outpatient (CLI) | payer OTHER ==
[~2023-03-13] MED LIST changes: +IOHEXOL 350 MG/ML 100 ML (OMNIPAQUE 350) VIAL IV ONE; +NS 100 ML (IVPB) BAG IV ONE
--- NOTE | 2023-03-13 13:40 | Diagnostic Imaging Report ---
EXAM: CT right ankle and foot with intravenous contrast. DATE: March 13, 2023. INDICATION: 43-year-old male, ulcer with left foot and ankle pain. COMPARISON: None. FINDINGS: There is a skin defect volarly located near the level of the second metatarsophalangeal joint with underlying abscess which measures approximately 1.8 x 1.4 x 1.2 cm in size. The abscess directly contacts the second metatarsal head without current cortical or aggressive bone destruction or periosteal reaction. Areas of abnormal soft tissue attenuation also extend in the region of the second metatarsophalangeal joint without current pronounced joint space loss or adjacent bone destruction. There is widening of the second metatarsophalangeal joint and lateral subluxation of the second proximal phalanx at this articulation. There is also volar to dorsal subluxation at this articulation. There is no identified acute fracture. IMPRESSION: 1. Soft tissue ulcer volarly located in the region of the second metatarsophalangeal joint with underlying abscess measuring 1.8 x 1.4 x 1.2 cm in size. 2. The above-mentioned abscess directly contacts the second metatarsal head and also extends in the region of the second metatarsophalangeal joint; however, there is no current bone destruction or specific finding on CT to suggest osteomyelitis. Sensitivity for detection of osteomyelitis may be improved with MRI. 3. Abnormal alignment at the second metatarsophalangeal joint without clear evidence of septic arthritis. This also may be more sensitively evaluated on MRI. Dictated by: Dictated on workstation # [id number]
== END ==
LOC: RAD 12:05
PROVIDERS: ATTEND Family Medicine
DX: L97.512 Non-pressure chronic ulcer of other part of right foot with fat layer exposed (principal); L97.522 Non-pressure chronic ulcer of other part of left foot with fat layer exposed; E11.621 Type 2 diabetes mellitus with foot ulcer; E11.65 Type 2 diabetes mellitus with hyperglycemia; E66.01 Morbid (severe) obesity due to excess calories; Z68.41 Body mass index [BMI] 40.0-44.9, adult; M20.41 Other hammer toe(s) (acquired), right foot; M14.671 Charcot's joint, right ankle and foot; M14.672 Charcot's joint, left ankle and foot; E11.40 Type 2 diabetes mellitus with diabetic neuropathy, unspecified; Z91.119 Patient's noncompliance with dietary regimen due to unspecified reason
CPT/HCPCS: 73701